=== PATIENT | male | born 1955 | race Hispanic/Latino ===

== ENCOUNTER 2021-03-31 09:07 | Day surgery (SDC) | payer BC ==
[2021-03-31] MEDS ORDERED: MIDAZOLAM HCL 2 MG/2 ML INJ ONE (10:10)
[2021-03-31] MEDS ORDERED: NALOXONE 0.4 MG/ML VIAL ONE (10:10)
[2021-03-31] MEDS ORDERED: FENTANYL CITR 100 MCG/2 ML ONE (10:11)
[2021-03-31] MEDS ORDERED: NA CHLORIDE 0.9% 500 ML ONE (10:11)
[2021-03-31] MEDS ORDERED: HYDROCODONE/APAP 7.5/325 MG TAB ONE (13:16)
[2021-03-31 13:43] VITALS: BMI 30.5
--- NOTE | 2021-03-31 14:01 | RAD REPORT ---
EXAM DESCRIPTION: US - Liver Biopsy Procedure - 03/31/2021 10:47 am CLINICAL HISTORY: MASSLiver mass, right lobe COMPARISON: No prior imaging at this facility. Incomplete set of outside CT images dated March 17, 2021. TECHNIQUE: Patient presents for imaging guided biopsy of a large 12 centimeter heterogeneous mass in the right lobe of the liver seen on the outside imaging study. The procedure, risks and alternatives to the procedure were discussed with the patient in detail. Aft er answering all questions both oral and written consent were obtained. The patient had no contraindi cated allergy. Patient had been off aspirin therapy for 10 or more days. IV access and physiologic monitors were in place. After obtaining consent, the patient was pre-medica maria e 1.0 milligrams Versed IV and 100 micrograms fentanyl IV. An additional 50 microgram fentanyl dose was utilized at the conclusion the procedure due to patient pain. Prior to the procedure plan enter a sonographic evaluation was performed. A heterogeneous mass is see n. At sonography the mass appeared to be numerous small rounded masses clustered in the right lobe. I nferior right lobe access site was selected so that normal liver parenchyma was present between the l iver capsule and the clustered liver lesions. Skin was prepped and draped in the usual sterile fashion. Skin and deeper tissues down to the liver c apsule were anesthetized with 1% lidocaine. Under direct sonographic visualization an 18 gauge introd ucer needle was advanced with the tip penetrating the liver capsule and placed in proximity to the cl ustered liver lesions. A 19 centimeter biopsy needle was advanced through the introducer needle. A 2 centimeter core biopsy was obtained. There are were 3 additional core biopsies obtained through the s marina introducer needle using changes in angulation of the needle to sample slightly different areas of the inferior right lobe liver. All biopsy material was retained and given to pathology for histologi c and/or cytologic assessment. . When the biopsy sampling was completed, the introducer needle was wi thdrawn. Direct pressure was applied to the puncture site. Hemostasis was obtained at the skin surfac e. Follow-up sonographic evaluation showed no subcapsular or pericapsular hematoma. No evidence for b leeding at the liver capsule. Patient was placed in [id number] position after a sterile bandage was placed to the puncture site. Vital signs were stable throughout the procedure. Patient tolerated procedure without immediate compl ication. Conscious sedation time was 40 minutes. IMPRESSION: Ultrasound-guided liver biopsy was performed of the large 12 centimeter mass. All obtain ed material was given to pathology for further assessment. Patient tolerated procedure well without complications. Patient was transferred to the same day surgi janell area for post procedure monitoring.
[2021-03-31 14:30] VITALS: BP 117/78; TEMP 97.7; O2SAT 97
== END 2021-03-31 14:15 | disposition home or self-care (01) ==
LOC: DS 09:07
PROVIDERS: ATTEND Internal Medicine Hematology & Oncology
PROC: BF45ZZZ Ultrasonography of Liver (ICD-10-PCS; principal; 2021-03-31)
PROC: 0FB13ZX Excision of Right Lobe Liver, Percutaneous Approach, Diagnostic (ICD-10-PCS; 2021-03-31)
DX: C22.9 Malignant neoplasm of liver, not specified as primary or secondary (principal)
CPT/HCPCS: 47000; 88307; J2250; J2310; J3010; J7040

== ENCOUNTER 2021-05-06 21:10 | Inpatient (IN) | payer BC ==
--- OUTSIDE RECORDS SUMMARY | 2021-05-06 21:16 | XMS REPORT | Continuity of Care Document ---
:1955 Author Organization [facility] t Address [address] [place] [address] Support Name Relationship Address Phone Nahid Allen Spouse [address] [place] [address] L Bianca Relative [address] [place] [id number] NAHID ALLEN X [address] Unavailable [place] [phone] ALLEN L Relative [address] Unavailable [place] [id number] Care Team Providers Name Role Phone Brian Barahona MD Primary Care Physician TK Attending Clinician Unavailable Shameka SIMS Attending Clinician Unavailable Levi LESTER S Attending Clinician Brian Barahona MD Attending Clinician Vaccine, Db Cbc Fam Attending Clinician Unavailable Chu LESTER Attending Clinician CHU Attending Clinician Unavailable Doctor Unassigned, Name Attending Clinician Unavailable Sammi Amador DO Attending Clinician Tk LESTER Attending Clinician BRIAN BARAHONA Attending Clinician Unavailable MAHESH Attending Clinician Unavailable MAHESH Attending Clinician Unavailable Lawrence VARGAS Attending Clinician Unavailable Payers Payer Name Policy Type Policy Number Effective Date Expiration Date S avni [facility] [id number] 2009 00:00:00 Problems Condition Condition Condition Status Onset Resolution Last Treating Co mments Source Name Details Category Date Date Treatment Clinician Date Acute on Acute on Disease Active 2019-06 Unive rs chronic chronic 0-11 [place] CHF 00 Medical (congestiv (congestiv Br anch e heart e heart failure), failure), NYHA class NYHA class 3 3 Obesity Obesity Disease Active 2019-06 Univers (BMI (BMI 0-10 ity of 30-39.9) 30-39.9) 00:00: [place] [facility] Fluid Fluid Disease Active 2019-06 Univers overload overload 0-09 ity of 00:00: [place] [facility] ANN-MARIE ANN-MARIE Disease Active Univers (obstructi (obstructi 4-15 it y of ve sleep ve sleep 00:00: [place] apnea) apnea) [facility] HLD HLD Disease Active Univers (hyperlipi (hyperlipi 5-09 it y of demia) demia) 00:00: [place] [facility] Branch Ischemic Ischemic Disease Active Unive rs cardiomyop cardiomyop 3-07 it y of athy athy 00:00: [place] [facility] Essential Essential Disease Active 2014-06 Uni vers hypertensi hypertensi 0-27 it y of on on 00:00: [place] [facility] Allergies, Adverse Reactions, Alerts Allergy Allergy Status Severity Reaction(s) Onset Inactive Treating Comm ents Source Name Type Date Date Clinician NO KNOWN Drug Active Univers ALLERGIE Class ity of S [facility] Social History Social Habit Start Date Stop Date Quantity Comments Source History of tobacco Cigarette Smoker University of use [facility] Exposure to Not sure [facility] SARS-CoV-2 (event) [facility] Alcohol intake 2021-05-06 2021-05-06 0 /d University of 00:00:00 00:00:00 [facility] Tobacco Comment 2020-03-19 2020-03-19 1pk a day. Universit y of 00:00:00 00:00:00 [facility] Cigarettes smoked 2015-04-05 2015-04-05 Univers ity of current (pack per 00:00:00 00:00:00 ) - Reported Branch Cigarette 2015-04-05 2015-04-05 University of pack-years 00:00:00 00:00:00 [facility] Tobacco use and 2015-04-05 2015-04-05 Never used Universit y of exposure 00:00:00 00:00:00 [facility] Sex [birth year] Universit y of 00:00:00 00:00:00 [facility] Smoking Status Start Date Stop Date Source Current every day smoker 2015-04-05 00:00:[address] [facility] Medications Ordered Filled Start Stop Current Ordering Indication Dosage Frequency Signature Comments Components Source Medication Medication Date Date Medication? Clinician (SIG) Name Name ondansetron 2020-06 No 4mg 4 mg, Slow Univers (ZOFRAN 07-06 IV Push, ity of (PF)) 10:30: 09:26 ONCE, 1 [place] injection 4 00 :00 dose, On Medi janell mg Sat Branch 05/06/21 at 0430, MARIE morpHINE 2020-06 No 4mg 4 mg, Slow Un monse injection 4 07-06 IV Push, ity of mg 10:30: 09:27 ONCE, 1 [place] 00 :00 dose, On Medical [facility] Branch 05/06/21 at 0430, STAT ciprofloxac 2020-06 Yes 500mg 500 mg, Un monse in HCl 07-06 Oral, ity of (CIPRO) 10:00: Q12HA2, [place] tablet 500 00 First dose Med ical mg on [facility] Branch 05/06/21 at 0400, Until Discontinu ed, MARIE
Re ason for Anti-Infec tive: Empiric Therapy for Suspected Infection< br>Empiric Therapy Site: Abdominal& lt;br>Dura tion of therapy: 72 hours NaCl 0.9% 2020-06 No 500mL at 999 Univ ers (NS) bolus 07-06 mL/hr, 500 it y of infusion 07:30: 08:59 mL, IV [place] 500 mL 00 :00 Infusion, Medical ONCE, 1 Branch dose, On 05/06/21 at 0130, STAT ondansetron 2020-06 No 4mg 4 mg, Slow Univers (ZOFRAN 07-06 IV Push, ity of (PF)) 07:30: 06:38 ONCE, 1 [place] injection 4 00 :00 dose, On Medi janell mg Sat Branch 05/06/21 at 0130, MARIE morpHINE 2020-06 No 4mg 4 mg, Slow Un monse injection 4 07-06 IV Push, ity of mg 07:30: 06:38 ONCE, 1 [place] 00 :00 dose, On Medical Sat Branch 05/06/21 at 0130, STAT iohexol 2020-06- No [id number] 120mL 120 mL, Univers (OMNIPAQUE 07-06 Intravenou it y of 350 07:15: 07:06 s, ONCE, 1 [place] BULK-100 00 :00 dose, On Medical mL) Sat Branch injection 05/06/21 120 mL at 0115, Routine ciprofloxac 2020-06 Yes [id number] 500mg Take 1 Univers in HCl 500 07-06 tablet by ity of mg tablet 00:00: mouth 2 [place] 00 (two) Medical times Branch daily. ondansetron 2020-06 Yes [id number] 4mg Take 1 Univers (ZOFRAN) 4 07-06 tablet by ity of mg tablet 00:00: mouth [place] 00 every 8 Medical (eight) Branch hours as needed for Nausea and Vomiting (N/V). iopamidol 2020-06- No [id number] 120mL 120 mL, Univers (ISOVUE 0-13 10-13 Intravenou ity o f 300-500 mL) 04:30: 04:30 s, ONCE, 1 [place] injection 00 :00 dose, On Medica l 120 mL [facility] 03/21/21 at 2330, Routine acetaminoph 2020-06 No 650mg 650 mg, U nivers en 0-13 10-13 Oral, ity of (TYLENOL) 03:15: 02:40 ONCE, 1 [place] tablet 650 00 :00 dose, On Medic al mg [facility] 03/21/21 at 2215, MARIE FENTanyl PF 2020-06 No 50ug 50 mcg, Un monse (SUBLIMAZE 0-13 10-13 Slow IV ity o f (PF)) 03:15: 02:40 Push, [place] injection 00 :00 ONCE, 1 Medical 50 mcg dose, On Branch [facility] 03/21/21 at 2215, Routine NaCl 0.9% 2020-06- No 1000mL at 999 Uni vers (NS) bolus 0-13 10-13 mL/hr, ity of infusion 03:15: 04:37 1,000 mL, [place] as 1,000 mL 00 :00 IV Medical Infusion, Branch ONCE, 1 dose, On Tu03/21/21 at 2215, MARIE Regadenoson 2020-06- No [id number] .4mg 0.4 mg, IV Univers (LEXISCAN) 006 Push, ity of injection 15:00: 14:55 ONCE, 1 [place] 0.4 mg 00 :00 dose, On 03/15/21 at 1000, Routine
adjunct psychology faculty member approving Restricted medication : DAVID PHILLIPS tc 2020-06 No [id number] 43.2mCi 43.2 Unive rs 99m-tetrofo 003-15 millicurie i ty of smin 15:00: 14:55 , [place] (MYOVIEW) 00 :00 Intravenou Medi janell injection s, ONCE, 1 Bran ch 43.2 dose, On [facility] 03/15/21 at 1000, Routine tc 2020-06- No [id number] 15.2mCi 15.2 Unive rs 99m-tetrofo 003-15 millicurie i ty of smin 13:30: 13:19 , [place] (MYOVIEW) 00 :00 Intravenou Medi janell injection s, ONCE, 1 Bran ch 15.2 dose, On [facility] 03/15/21 at 0830, Routine aspirin 2020-06- No 324mg 324 mg, Unive rs chewable 003-11 Oral, ity of tablet 324 15:00: 14:06 ONCE, 1 [place] mg 00 :00 dose, On Medical Sat Branch 03/11/21 at 1000, Routine ketorolac 2020-06- No 30mg 30 mg, Unive rs (TORADOL) 003-11 Slow IV ity of injection 15:00: 14:06 Push, [place] 30 mg 00 :00 ONCE, 1 Medical dose, On Branch 03/11/21 at 1000, MARIE
Fa culty member approving Restricted medication : KAELA AMADOR acetaminoph Yes 4647 1{tbl} Take 1 Un monse en-codeine 9-29 tablet by ity of 300-30 mg 00:00: mouth [place] tablet 00 every 4 Medical (four) Branch hours as needed for Pain (scale 4-6). Indication s: acute pain acetaminoph 2021-0 Yes 4647 1{tbl} Take 1 Un monse en-codeine 9-29 tablet by ity of 300-30 mg 00:00: mouth [place] tablet 00 every 4 Medical (four) Branch hours as needed for Pain (scale 4-6). Indication s: acute pain acetaminoph 2021-0 Yes 4647 1{tbl} Take 1 Un monse en-codeine 9-29 tablet by ity of 300-30 mg 00:00: mouth [place] tablet 00 every 4 Medical (four) Branch hours as needed for Pain (scale 4-6). Indication s: acute pain acetaminoph 2021-0 Yes 4647 1{tbl} Take 1 Un monse en-codeine 9-29 tablet by ity of 300-30 mg 00:00: mouth [place] tablet 00 every 4 Medical (four) Branch hours as needed for Pain (scale 4-6). Indication s: acute pain acetaminoph 2021-0 Yes 4647 1{tbl} Take 1 Un monse en-codeine 9-29 tablet by ity of 300-30 mg 00:00: mouth [place] tablet 00 every 4 Medical (four) Branch hours as needed for Pain (scale 4-6). Indication s: acute pain acetaminoph 2021-0 Yes 4647 1{tbl} Take 1 Un monse en-codeine 9-29 tablet by ity of 300-30 mg 00:00: mouth [place] tablet 00 every 4 Medical (four) Branch hours as needed for Pain (scale 4-6). Indication s: acute pain acetaminoph 2021-0 Yes 4647 1{tbl} Take 1 Un monse en-codeine 9-29 tablet by ity of 300-30 mg 00:00: mouth [place] tablet 00 every 4 Medical (four) Branch hours as needed for Pain (scale 4-6). Indication s: acute pain acetaminoph 2021-0 Yes 4647 1{tbl} Take 1 Un monse en-codeine 9-29 tablet by ity of 300-30 mg 00:00: mouth [place] tablet 00 every 4 Medical (four) Branch hours as needed for Pain (scale 4-6). Indication s: acute pain acetaminoph 2021-0 Yes 4647 1{tbl} Take 1 Un monse en-codeine 9-29 tablet by ity of 300-30 mg 00:00: mouth [place] tablet 00 every 4 Medical (four) Branch hours as needed for Pain (scale 4-6). Indication s: acute pain acetaminoph 2021-0 Yes 4647 1{tbl} Take 1 Un monse en-codeine 9-29 tablet by ity of 300-30 mg 00:00: mouth [place] tablet 00 every 4 Medical (four) Branch hours as needed for Pain (scale 4-6). Indication s: acute pain acetaminoph 2021-0 Yes 4647 1{tbl} Take 1 Un monse en-codeine 9-29 tablet by ity of 300-30 mg 00:00: mouth [place] tablet 00 every 4 Medical (four) Branch hours as needed for Pain (scale 4-6). Indication s: acute pain acetaminoph 2021-0 Yes 4647 1{tbl} Take 1 Un monse en-codeine 9-29 tablet by ity of 300-30 mg 00:00: mouth [place] tablet 00 every 4 Medical (four) Branch hours as needed for Pain (scale 4-6). Indication s: acute pain acetaminoph 2021-0 Yes 4647 1{tbl} Take 1 Un monse en-codeine 9-29 tablet by ity of 300-30 mg 00:00: mouth [place] tablet 00 every 4 Medical (four) Branch hours as needed for Pain (scale 4-6). Indication s: acute pain acetaminoph 2021-0 Yes 4647 1{tbl} Take 1 Un monse en-codeine 9-29 tablet by ity of 300-30 mg 00:00: mouth [place] tablet 00 every 4 Medical (four) Branch hours as needed for Pain (scale 4-6). Indication s: acute pain acetaminoph 2021-0 Yes 4647 1{tbl} Take 1 Un monse en-codeine 9-29 tablet by ity of 300-30 mg 00:00: mouth [place] tablet 00 every 4 Medical (four) Branch hours as needed for Pain (scale 4-6). Indication s: acute pain acetaminoph 2021-0 Yes 4647 1{tbl} Take 1 Un monse en-codeine 9-29 tablet by ity of 300-30 mg 00:00: mouth [place] tablet 00 every 4 Medical (four) Branch hours as needed for Pain (scale 4-6). Indication s: acute pain acetaminoph 2020-0 Yes 4647 1{tbl} Take 1 Un monse en-codeine 9-29 tablet by ity of 300-30 mg 00:00: mouth [place] tablet 00 every 4 Medical (four) Branch hours as needed for Pain (scale 4-6). Indication s: acute pain acetaminoph 2020-0 Yes 4647 1{tbl} Take 1 Un monse en-codeine 9-29 tablet by ity of 300-30 mg 00:00: mouth [place] tablet 00 every 4 Medical (four) Branch hours as needed for Pain (scale 4-6). Indication s: acute pain etodolac 2020-0 Yes [id number] 400mg Take 1 U nivers (LODINE) 8-31 tablet by ity of 400 mg 00:00: mouth 2 [place] tablet 00 (two) Medical times Branch daily. etodolac 0 Yes [id number] 400mg Take 1 U nivers (LODINE) 8-31 tablet by ity of 400 mg 00:00: mouth 2 [place] tablet 00 (two) Medical times Branch daily. etodolac 2020-0 Yes [id number] 400mg Take 1 U nivers (LODINE) 8-31 tablet by ity of 400 mg 00:00: mouth 2 [place] tablet 00 (two) Medical times Branch daily. etodolac 2020-0 Yes [id number] 400mg Take 1 U nivers (LODINE) 8-31 tablet by ity of 400 mg 00:00: mouth 2 [place] tablet 00 (two) Medical times Branch daily. etodolac 2020-0 Yes [id number] 400mg Take 1 U nivers (LODINE) 8-31 tablet by ity of 400 mg 00:00: mouth 2 [place] tablet 00 (two) Medical times Branch daily. etodolac 2020-0 Yes [id number] 400mg Take 1 U nivers (LODINE) 8-31 tablet by ity of 400 mg 00:00: mouth 2 [place] tablet 00 (two) Medical times Branch daily. etodolac 2020-0 Yes [id number] 400mg Take 1 U nivers (LODINE) 8-31 tablet by ity of 400 mg 00:00: mouth 2 [place] tablet 00 (two) Medical times Branch daily. etodolac 0 Yes [id number] 400mg Take 1 U nivers (LODINE) 8-31 tablet by ity of 400 mg 00:00: mouth 2 [place] tablet 00 (two) Medical times Branch daily. etodolac 0 Yes [id number] 400mg Take 1 U nivers (LODINE) 8-31 tablet by ity of 400 mg 00:00: mouth 2 [place] tablet 00 (two) Medical times Branch daily. etodolac Yes [id number] 400mg Take 1 U nivers (LODINE) 8-31 tablet by ity of 400 mg 00:00: mouth 2 [place] tablet 00 (two) Medical times Branch daily. etodolac Yes [id number] 400mg Take 1 U nivers (LODINE) 8-31 tablet by ity of 400 mg 00:00: mouth 2 [place] tablet 00 (two) Medical times Branch daily. etodolac Yes [id number] 400mg Take 1 U nivers (LODINE) 8-31 tablet by ity of 400 mg 00:00: mouth 2 [place] tablet 00 (two) Medical times Branch daily. etodolac Yes [id number] 400mg Take 1 U nivers (LODINE) 8-31 tablet by ity of 400 mg 00:00: mouth 2 [place] tablet 00 (two) Medical times Branch daily. etodolac Yes [id number] 400mg Take 1 U nivers (LODINE) 8-31 tablet by ity of 400 mg 00:00: mouth 2 [place] tablet 00 (two) Medical times Branch daily. etodolac 0 Yes [id number] 400mg Take 1 U nivers (LODINE) 8-31 tablet by ity of 400 mg 00:00: mouth 2 [place] tablet 00 (two) Medical times Branch daily. etodolac 0 Yes [id number] 400mg Take 1 U nivers (LODINE) 8-31 tablet by ity of 400 mg 00:00: mouth 2 [place] tablet 00 (two) Medical times Branch daily. etodolac 2021-0 Yes [id number] 400mg Take 1 U nivers (LODINE) 8-31 tablet by ity of 400 mg 00:00: mouth 2 [place] tablet 00 (two) Medical times Branch daily. etodolac 0 Yes [id number] 400mg Take 1 U nivers (LODINE) 8-31 tablet by ity of 400 mg 00:00: mouth 2 [place] tablet 00 (two) Medical times Branch daily. etodolac 0 Yes [id number] 400mg Take 1 U nivers (LODINE) 8-31 tablet by ity of 400 mg 00:00: mouth 2 [place] tablet 00 (two) Medical times Branch daily. atorvastati Yes [id number] 80mg Take 1 Univers n 80 mg 8-16 tablet by ity of tablet 00:00: mouth [place] 00 daily. Medical Branch atorvastati Yes [id number] 80mg Take 1 Univers n 80 mg 8-16 tablet by ity of tablet 00:00: mouth [place] 00 daily. Medical Branch atorvastati Yes [id number] 80mg Take 1 Univers n 80 mg 8-16 tablet by ity of tablet 00:00: mouth [place] 00 daily. Medical Branch atorvastati Yes [id number] 80mg Take 1 Univers n 80 mg 8-16 tablet by ity of tablet 00:00: mouth [place] 00 daily. Medical Branch atorvastati Yes [id number] 80mg Take 1 Univers n 80 mg 8-16 tablet by ity of tablet 00:00: mouth [place] 00 daily. Medical Branch atorvastati Yes [id number] 80mg Take 1 Univers n 80 mg 8-16 tablet by ity of tablet 00:00: mouth [place] 00 daily. Medical Branch atorvastati Yes [id number] 80mg Take 1 Univers n 80 mg 8-16 tablet by ity of tablet 00:00: mouth [place] 00 daily. Medical Branch atorvastati Yes [id number] 80mg Take 1 Univers n 80 mg 8-16 tablet by ity of tablet 00:00: mouth [place] 00 daily. Medical Branch atorvastati Yes [id number] 80mg Take 1 Univers n 80 mg 8-16 tablet by ity of tablet 00:00: mouth [place] 00 daily. Medical Branch atorvastati 2020-0 Yes [id number] 80mg Take 1 Univers n 80 mg 8-16 tablet by ity of tablet 00:00: mouth [place] 00 daily. Medical Branch atorvastati 0 Yes [id number] 80mg Take 1 Univers n 80 mg 8-16 tablet by ity of tablet 00:00: mouth [place] 00 daily. Medical Branch atorvastati 0 Yes [id number] 80mg Take 1 Univers n 80 mg 8-16 tablet by ity of tablet 00:00: mouth [place] 00 daily. Medical Branch atorvastati 0 Yes [id number] 80mg Take 1 Univers n 80 mg 8-16 tablet by ity of tablet 00:00: mouth [place] 00 daily. Medical Branch atorvastati Yes [id number] 80mg Take 1 Univers n 80 mg 8-16 tablet by ity of tablet 00:00: mouth [place] 00 daily. Medical Branch atorvastati 0 Yes [id number] 80mg Take 1 Univers n 80 mg 8-16 tablet by ity of tablet 00:00: mouth [place] 00 daily. Medical Branch atorvastati Yes [id number] 80mg Take 1 Univers n 80 mg 8-16 tablet by ity of tablet 00:00: mouth [place] 00 daily. Medical Branch atorvastati Yes [id number] 80mg Take 1 Univers n 80 mg 8-16 tablet by ity of tablet 00:00: mouth [place] 00 daily. Medical Branch atorvastati 0 Yes [id number] 80mg Take 1 Univers n 80 mg 8-16 tablet by ity of tablet 00:00: mouth [place] 00 daily. Medical Branch atorvastati 0 Yes [id number] 80mg Take 1 Univers n 80 mg 8-16 tablet by ity of tablet 00:00: mouth [place] 00 daily. Medical Branch nitroglycer 2020-[id number] 1 Univers in 01-10 tablet ity of (NITROSTAT) 00:00: under the [place] 0.4 mg 00 tongue Medical sublingual every 5 Branc h tablet (five) minutes as needed for Chest pain. nitroglycer [id number] 1 Univers in 01-10 tablet ity of (NITROSTAT) 00:00: under the [place] 0.4 mg 00 tongue Medical sublingual every 5 Branc h tablet (five) minutes as needed for Chest pain. nitroglycer 2021-[id number] 1 Univers in 01-10 tablet ity of (NITROSTAT) 00:00: under the [place] 0.4 mg 00 tongue Medical sublingual every 5 Branc h tablet (five) minutes as needed for Chest pain. nitroglycer 2021-[id number] 1 Univers in 01-10 tablet ity of (NITROSTAT) 00:00: under the [place] 0.4 mg 00 tongue Medical sublingual every 5 Branc h tablet (five) minutes as needed for Chest pain. nitroglycer 2021-[id number] 1 Univers in 01-10 tablet ity of (NITROSTAT) 00:00: under the [place] 0.4 mg 00 tongue Medical sublingual every 5 Branc h tablet (five) minutes as needed for Chest pain. nitroglycer 2021-[id number] 1 Univers in 01-10 tablet ity of (NITROSTAT) 00:00: under the [place] 0.4 mg 00 tongue Medical sublingual every 5 Branc h tablet (five) minutes as needed for Chest pain. nitroglycer 2021-[id number] 1 Univers in 01-10 tablet ity of (NITROSTAT) 00:00: under the [place] 0.4 mg 00 tongue Medical sublingual every 5 Branc h tablet (five) minutes as needed for Chest pain. nitroglycer 2021-[id number] 1 Univers in 01-10 tablet ity of (NITROSTAT) 00:00: under the [place] 0.4 mg 00 tongue Medical sublingual every 5 Branc h tablet (five) minutes as needed for Chest pain. nitroglycer 2021-[id number] 1 Univers in 01-10 tablet ity of (NITROSTAT) 00:00: under the [place] 0.4 mg 00 tongue Medical sublingual every 5 Branc h tablet (five) minutes as needed for Chest pain. nitroglycer 2021-[id number] 1 Univers in 01-10 tablet ity of (NITROSTAT) 00:00: under the [place] 0.4 mg 00 tongue Medical sublingual every 5 Branc h tablet (five) minutes as needed for Chest pain. nitroglycer 2021-[id number] 1 Univers in 01-10 tablet ity of (NITROSTAT) 00:00: under the [place] 0.4 mg 00 tongue Medical sublingual every 5 Branc h tablet (five) minutes as needed for Chest pain. nitroglycer 2021-[id number] 1 Univers in 01-10 tablet ity of (NITROSTAT) 00:00: under the [place] 0.4 mg 00 tongue Medical sublingual every 5 Branc h tablet (five) minutes as needed for Chest pain. nitroglycer 2021-[id number] 1 Univers in 01-10 tablet ity of (NITROSTAT) 00:00: under the [place] 0.4 mg 00 tongue Medical sublingual every 5 Branc h tablet (five) minutes as needed for Chest pain. nitroglycer 2021-[id number] 1 Univers in 01-10 tablet ity of (NITROSTAT) 00:00: under the [place] 0.4 mg 00 tongue Medical sublingual every 5 Branc h tablet (five) minutes as needed for Chest pain. nitroglycer 2021-[id number] 1 Univers in 01-10 tablet ity of (NITROSTAT) 00:00: under the [place] 0.4 mg 00 tongue Medical sublingual every 5 Branc h tablet (five) minutes as needed for Chest pain. nitroglycer 2021-[id number] 1 Univers in 01-10 tablet ity of (NITROSTAT) 00:00: under the [place] 0.4 mg 00 tongue Medical sublingual every 5 Branc h tablet (five) minutes as needed for Chest pain. nitroglycer 2021-[id number] 1 Univers in 01-10 tablet ity of (NITROSTAT) 00:00: under the [place] 0.4 mg 00 tongue Medical sublingual every 5 Branc h tablet (five) minutes as needed for Chest pain. nitroglycer 2021-[id number] 1 Univers in 8-03 tablet ity of (NITROSTAT) 00:00: under the [place] 0.4 mg 00 tongue Medical sublingual every 5 Branc h tablet (five) minutes as needed for Chest pain. nitroglycer [id number] 1 Univers in 8-03 tablet ity of (NITROSTAT) 00:00: under the [place] 0.4 mg 00 tongue Medical sublingual every 5 Branc h tablet (five) minutes as needed for Chest pain. carvediloL 0 Yes [id number] 25mg Take 1 U nivers 25 mg 2-03 tablet by ity of tablet 00:00: mouth 2 [place] 00 (two) Medical times Branch daily with meals. hydroCHLORO 2020-0 Yes [id number] 25mg Take 1 Univers thiazide 25 2-03 tablet by ity of mg tablet 00:00: mouth [place] 00 daily. Medical Branch losartan 0 Yes [id number] 100mg Take 1 Un monse 100 mg 2-03 tablet by ity of tablet 00:00: mouth [place] 00 daily. Medical Branch carvediloL 0 Yes [id number] 25mg Take 1 U nivers 25 mg 2-03 tablet by ity of tablet 00:00: mouth 2 [place] 00 (two) Medical times Branch daily with meals. hydroCHLORO 2020-0 Yes [id number] 25mg Take 1 Univers thiazide 25 2-03 tablet by ity of mg tablet 00:00: mouth [place] 00 daily. Medical Branch losartan 0 Yes [id number] 100mg Take 1 Un monse 100 mg 2-03 tablet by ity of tablet 00:00: mouth [place] 00 daily. Medical Branch carvediloL 2020-0 Yes [id number] 25mg Take 1 U nivers 25 mg 2-03 tablet by ity of tablet 00:00: mouth 2 [place] 00 (two) Medical times Branch daily with meals. hydroCHLORO 2020-0 Yes [id number] 25mg Take 1 Univers thiazide 25 2-03 tablet by ity of mg tablet 00:00: mouth [place] 00 daily. Medical Branch losartan 2020-0 Yes [id number] 100mg Take 1 Un monse 100 mg 2-03 tablet by ity of tablet 00:00: mouth [place] 00 daily. Medical Branch carvediloL 2020-0 Yes [id number] 25mg Take 1 U nivers 25 mg 2-03 tablet by ity of tablet 00:00: mouth 2 [place] 00 (two) Medical times Branch daily with meals. hydroCHLORO 0 Yes [id number] 25mg Take 1 Univers thiazide 25 2-03 tablet by ity of mg tablet 00:00: mouth [place] 00 daily. Medical Branch losartan 0 Yes [id number] 100mg Take 1 Un monse 100 mg 2-03 tablet by ity of tablet 00:00: mouth [place] 00 daily. Medical Branch carvediloL 0 Yes [id number] 25mg Take 1 U nivers 25 mg 2-03 tablet by ity of tablet 00:00: mouth 2 [place] 00 (two) Medical times Branch daily with meals. hydroCHLORO 0 Yes [id number] 25mg Take 1 Univers thiazide 25 2-03 tablet by ity of mg tablet 00:00: mouth [place] 00 daily. Medical Branch losartan 0 Yes [id number] 100mg Take 1 Un monse 100 mg 2-03 tablet by ity of tablet 00:00: mouth [place] 00 daily. Medical Branch carvediloL Yes [id number] 25mg Take 1 U nivers 25 mg 2-03 tablet by ity of tablet 00:00: mouth 2 [place] 00 (two) Medical times Branch daily with meals. hydroCHLORO 0 Yes [id number] 25mg Take 1 Univers thiazide 25 2-03 tablet by ity of mg tablet 00:00: mouth [place] 00 daily. Medical Branch losartan 0 Yes [id number] 100mg Take 1 Un monse 100 mg 2-03 tablet by ity of tablet 00:00: mouth [place] 00 daily. Medical Branch carvediloL 0 Yes [id number] 25mg Take 1 U nivers 25 mg 2-03 tablet by ity of tablet 00:00: mouth 2 [place] 00 (two) Medical times Branch daily with meals. hydroCHLORO 2020-0 Yes [id number] 25mg Take 1 Univers thiazide 25 2-03 tablet by ity of mg tablet 00:00: mouth [place] 00 daily. Medical Branch losartan 0 Yes [id number] 100mg Take 1 Un monse 100 mg 2-03 tablet by ity of tablet 00:00: mouth [place] 00 daily. Medical Branch carvediloL 0 Yes [id number] 25mg Take 1 U nivers 25 mg 2-03 tablet by ity of tablet 00:00: mouth 2 [place] 00 (two) Medical times Branch daily with meals. hydroCHLORO 0 Yes [id number] 25mg Take 1 Univers thiazide 25 2-03 tablet by ity of mg tablet 00:00: mouth [place] 00 daily. Medical Branch losartan 0 Yes [id number] 100mg Take 1 Un monse 100 mg 2-03 tablet by ity of tablet 00:00: mouth [place] 00 daily. Medical Branch carvediloL 0 Yes [id number] 25mg Take 1 U nivers 25 mg 2-03 tablet by ity of tablet 00:00: mouth 2 [place] 00 (two) Medical times Branch daily with meals. hydroCHLORO 0 Yes [id number] 25mg Take 1 Univers thiazide 25 2-03 tablet by ity of mg tablet 00:00: mouth [place] 00 daily. Medical Branch losartan 0 Yes [id number] 100mg Take 1 Un monse 100 mg 2-03 tablet by ity of tablet 00:00: mouth [place] 00 daily. Medical Branch carvediloL Yes [id number] 25mg Take 1 U nivers 25 mg 2-03 tablet by ity of tablet 00:00: mouth 2 [place] 00 (two) Medical times Branch daily with meals. hydroCHLORO 0 Yes [id number] 25mg Take 1 Univers thiazide 25 2-03 tablet by ity of mg tablet 00:00: mouth [place] 00 daily. Medical Branch losartan 0 Yes [id number] 100mg Take 1 Un monse 100 mg 2-03 tablet by ity of tablet 00:00: mouth [place] 00 daily. Medical Branch carvediloL 0 Yes [id number] 25mg Take 1 U nivers 25 mg 2-03 tablet by ity of tablet 00:00: mouth 2 [place] 00 (two) Medical times Branch daily with meals. hydroCHLORO 2020-0 Yes [id number] 25mg Take 1 Univers thiazide 25 2-03 tablet by ity of mg tablet 00:00: mouth [place] 00 daily. Medical Branch losartan 0 Yes [id number] 100mg Take 1 Un monse 100 mg 2-03 tablet by ity of tablet 00:00: mouth [place] 00 daily. Medical Branch carvediloL 0 Yes [id number] 25mg Take 1 U nivers 25 mg 2-03 tablet by ity of tablet 00:00: mouth 2 [place] 00 (two) Medical times Branch daily with meals. hydroCHLORO 0 Yes [id number] 25mg Take 1 Univers thiazide 25 2-03 tablet by ity of mg tablet 00:00: mouth [place] 00 daily. Medical Branch losartan 0 Yes [id number] 100mg Take 1 Un monse 100 mg 2-03 tablet by ity of tablet 00:00: mouth [place] 00 daily. Medical Branch carvediloL 0 Yes [id number] 25mg Take 1 U nivers 25 mg 2-03 tablet by ity of tablet 00:00: mouth 2 [place] 00 (two) Medical times Branch daily with meals. hydroCHLORO 0 Yes [id number] 25mg Take 1 Univers thiazide 25 2-03 tablet by ity of mg tablet 00:00: mouth [place] 00 daily. Medical Branch losartan 0 Yes [id number] 100mg Take 1 Un monse 100 mg 2-03 tablet by ity of tablet 00:00: mouth [place] 00 daily. Medical Branch carvediloL Yes [id number] 25mg Take 1 U nivers 25 mg 2-03 tablet by ity of tablet 00:00: mouth 2 [place] 00 (two) Medical times Branch daily with meals. hydroCHLORO 0 Yes [id number] 25mg Take 1 Univers thiazide 25 2-03 tablet by ity of mg tablet 00:00: mouth [place] 00 daily. Medical Branch losartan 0 Yes [id number] 100mg Take 1 Un monse 100 mg 2-03 tablet by ity of tablet 00:00: mouth [place] 00 daily. Medical Branch carvediloL 0 Yes [id number] 25mg Take 1 U nivers 25 mg 2-03 tablet by ity of tablet 00:00: mouth 2 [place] 00 (two) Medical times Branch daily with meals. hydroCHLORO 2020-0 Yes [id number] 25mg Take 1 Univers thiazide 25 2-03 tablet by ity of mg tablet 00:00: mouth [place] 00 daily. Medical Branch losartan 0 Yes [id number] 100mg Take 1 Un monse 100 mg 2-03 tablet by ity of tablet 00:00: mouth [place] 00 daily. Medical Branch carvediloL 0 Yes [id number] 25mg Take 1 U nivers 25 mg 2-03 tablet by ity of tablet 00:00: mouth 2 [place] 00 (two) Medical times Branch daily with meals. hydroCHLORO Yes [id number] 25mg Take 1 Univers thiazide 25 2-03 tablet by ity of mg tablet 00:00: mouth [place] 00 daily. Medical Branch losartan Yes [id number] 100mg Take 1 Un monse 100 mg 2-03 tablet by ity of tablet 00:00: mouth [place] 00 daily. Medical Branch carvediloL Yes [id number] 25mg Take 1 U nivers 25 mg 2-03 tablet by ity of tablet 00:00: mouth 2 [place] 00 (two) Medical times Branch daily with meals. hydroCHLORO Yes [id number] 25mg Take 1 Univers thiazide 25 2-03 tablet by ity of mg tablet 00:00: mouth [place] 00 daily. Medical Branch losartan Yes [id number] 100mg Take 1 Un monse 100 mg 2-03 tablet by ity of tablet 00:00: mouth [place] 00 daily. Medical Branch carvediloL Yes [id number] 25mg Take 1 U nivers 25 mg 2-03 tablet by ity of tablet 00:00: mouth 2 [place] 00 (two) Medical times Branch daily with meals. hydroCHLORO Yes [id number] 25mg Take 1 Univers thiazide 25 2-03 tablet by ity of mg tablet 00:00: mouth [place] 00 daily. Medical Branch losartan Yes [id number] 100mg Take 1 Un monse 100 mg 2-03 tablet by ity of tablet 00:00: mouth [place] 00 daily. Medical Branch carvediloL Yes [id number] 25mg Take 1 U nivers 25 mg 2-03 tablet by ity of tablet 00:00: mouth 2 [place] 00 (two) Medical times Branch daily with meals. hydroCHLORO Yes [id number] 25mg Take 1 Univers thiazide 25 2-03 tablet by ity of mg tablet 00:00: mouth [place] 00 daily. Medical Branch losartan Yes [id number] 100mg Take 1 Un monse 100 mg 2-03 tablet by ity of tablet 00:00: mouth [place] 00 daily. Medical Branch aspirin 81 2016-0 Yes 81mg Take 1 Tab U nivers mg EC 2-08 by mouth ity of tablet 00:00: daily. [place] [facility] aspirin 81 2016-0 Yes 81mg Take 1 Tab U nivers mg EC 2-08 by mouth ity of tablet 00:00: daily. [place] [facility] aspirin 81 2016-0 Yes 81mg Take 1 Tab U nivers mg EC 2-08 by mouth ity of tablet 00:00: daily. [place] [facility] Branch aspirin 81 2016-0 Yes 81mg Take 1 Tab U nivers mg EC 2-08 by mouth ity of tablet 00:00: daily. [place] [facility] Branch aspirin 81 2016-0 Yes 81mg Take 1 Tab U nivers mg EC 2-08 by mouth ity of tablet 00:00: daily. [place] [facility] Branch aspirin 81 2016-0 Yes 81mg Take 1 Tab U nivers mg EC 2-08 by mouth ity of tablet 00:00: daily. [place] [facility] aspirin 81 2016-0 Yes 81mg Take 1 Tab U nivers mg EC 2-08 by mouth ity of tablet 00:00: daily. [place] [facility] aspirin 81 2016-0 Yes 81mg Take 1 Tab U nivers mg EC 2-08 by mouth ity of tablet 00:00: daily. [place] [facility] Branch aspirin 81 2016-0 Yes 81mg Take 1 Tab U nivers mg EC 2-08 by mouth ity of tablet 00:00: daily. [place] [facility] aspirin 81 2016-0 Yes 81mg Take 1 Tab U nivers mg EC 2-08 by mouth ity of tablet 00:00: daily. [place] [facility] aspirin 81 2016-0 Yes 81mg Take 1 Tab U nivers mg EC 2-08 by mouth ity of tablet 00:00: daily. [place] [facility] aspirin 81 2016-0 Yes 81mg Take 1 Tab U nivers mg EC 2-08 by mouth ity of tablet 00:00: daily. [place] [facility] aspirin 81 2016-0 Yes 81mg Take 1 Tab U nivers mg EC 2-08 by mouth ity of tablet 00:00: daily. [place] [facility] Branch aspirin 81 2016-0 Yes 81mg Take 1 Tab U nivers mg EC 2-08 by mouth ity of tablet 00:00: daily. [place] [facility] aspirin 81 2016-0 Yes 81mg Take 1 Tab U nivers mg EC 2-08 by mouth ity of tablet 00:00: daily. [place] [facility] aspirin 81 2016-0 Yes 81mg Take 1 Tab U nivers mg EC 2-08 by mouth ity of tablet 00:00: daily. [place] [facility] aspirin 81 2016-0 Yes 81mg Take 1 Tab U nivers mg EC 2-08 by mouth ity of tablet 00:00: daily. [address] aspirin 81 2016-0 Yes 81mg Take 1 Tab U nivers mg EC 2-08 by mouth ity of tablet 00:00: daily. [address] aspirin 81 2016-0 Yes 81mg Take 1 Tab U nivers mg EC 2-08 by mouth ity of tablet 00:00: daily. [address] Immunizations Ordered Filled Immunization Date Status Comments [facility] e Immunization Name Name SARS-COV-2 COVID-19 2021-04-21 Completed Unive rsity of MODERNA VACCINE 00:00:00 [facility] SARS-COV-2 COVID-19 2021-04-21 Completed Unive rsity of MODERNA VACCINE 00:00:00 [facility] SARS-COV-2 COVID-19 2021-04-21 Completed Unive rsity of MODERNA VACCINE 00:00:00 [facility] SARS-COV-2 COVID-19 2021-04-21 Completed Unive rsity of MODERNA VACCINE 00:00:00 [facility] SARS-COV-2 COVID-19 2020-09-12 Completed Unive rsity of MODERNA VACCINE 00:00:00 [facility] SARS-COV-2 COVID-19 2020-09-12 Completed Unive rsity of MODERNA VACCINE 00:00:00 [facility] SARS-COV-2 COVID-19 2020-09-12 Completed Unive rsity of MODERNA VACCINE 00:00:00 [facility] SARS-COV-2 COVID-19 2020-09-12 Completed Unive rsity of MODERNA VACCINE 00:00:00 [facility] SARS-COV-2 COVID-19 2020-09-12 Completed Unive rsity of MODERNA VACCINE 00:00:00 [facility] SARS-COV-2 COVID-19 2020-08-16 Completed Unive rsity of MODERNA VACCINE 00:00:00 [place] Med ical Branch SARS-COV-2 COVID-19 2020-08-16 Completed Unive rsity of MODERNA VACCINE 00:00:00 [facility] SARS-COV-2 COVID-19 2020-08-16 Completed Unive rsity of MODERNA VACCINE 00:00:00 [facility] SARS-COV-2 COVID-19 2020-08-16 Completed Unive rsity of MODERNA VACCINE 00:00:00 [facility] SARS-COV-2 COVID-19 2020-08-16 Completed Unive rsity of MODERNA VACCINE 00:00:00 [facility] Zoster Vaccine 2020-01-12 Completed University of Recombinant 00:00:00 [facility] Zoster Vaccine 2020-01-12 Completed University of Recombinant 00:00:00 [facility] Zoster Vaccine 2020-01-12 Completed University of Recombinant 00:00:00 [facility] Zoster Vaccine 2020-01-12 Completed University of Recombinant 00:00:00 [facility] Zoster Vaccine 2020-01-12 Completed University of Recombinant 00:00:00 [facility] Zoster Vaccine 2020-01-12 Completed University of Recombinant 00:00:00 [facility] Zoster Vaccine 2020-01-12 Completed University of Recombinant 00:00:00 [facility] Zoster Vaccine 2020-01-12 Completed University of Recombinant 00:00:00 [facility] Zoster Vaccine 2020-01-12 Completed University of Recombinant 00:00:00 [facility] Zoster Vaccine 2020-01-12 Completed University of Recombinant 00:00:00 [facility] Zoster Vaccine 2020-01-12 Completed University of Recombinant 00:00:00 [facility] Zoster Vaccine 2020-01-12 Completed University of Recombinant 00:00:00 [facility] Zoster Vaccine 2020-01-12 Completed University of Recombinant 00:00:00 [facility] Zoster Vaccine 2020-01-12 Completed University of Recombinant 00:00:00 [facility] Zoster Vaccine 2020-01-12 Completed University of Recombinant 00:00:00 [facility] Zoster Vaccine 2020-01-12 Completed University of Recombinant 00:00:00 [facility] Zoster Vaccine 2020-01-12 Completed University of Recombinant 00:00:00 [facility] Zoster Vaccine 2020-01-12 Completed University of Recombinant 00:00:00 [facility] Zoster Vaccine 2020-01-12 Completed University of Recombinant 00:00:00 [facility] Vital Signs Vital Name Observation Time Observation Value Comments Source Systolic blood 2021-05-06 09:30:00 128 mm[Hg] Univer sity of pressure [place] [facility] Diastolic blood 2021-05-06 09:30:00 96 mm[Hg] Unive rsity of pressure [place] [facility] Heart rate 2021-05-06 09:30:00 62 /min Universi ty of [place] [facility] Respiratory rate 2021-05-06 09:30:00 15 /min Univ ersity of [place] [facility] Oxygen saturation in 2021-05-06 08:00:00 94 /min University of Arterial blood by [place] [employer] janell Pulse oximetry Branch Body temperature 2021-05-06 06:04:00 36.17 Shivani Univ ersity of [place] [facility] Body height 2021-05-06 06:04:00 162.6 cm Universi ty [facility] [place] [facility] Body weight 2021-05-06 06:04:00 72.576 kg [facility]i [facility] [place] [facility] BMI 2021-05-06 06:04:00 27.46 kg/m2 [facility]i [facility] [place] [facility] Systolic blood 2021-03-22 04:30:00 147 mm[Hg] Univer sity of pressure [place] [facility] Diastolic blood 2021-03-22 04:30:00 77 mm[Hg] Unive rsity of pressure [place] [facility] Heart rate 2021-03-22 04:30:00 101 /min Universi ty [facility] [place] [facility] Respiratory rate 2021-03-22 04:30:00 20 /min Univ ersity of [place] [facility] Oxygen saturation in 2021-03-22 04:30:00 95 /min University of Arterial blood by [place] [employer] janell Pulse oximetry Branch Body temperature 2021-03-22 04:00:00 37.17 Shivani Univ ersity of [place] [facility] Body weight 2021-03-22 01:57:00 79.243 kg [facility]i ty [facility] [place] [facility] BMI 2021-03-22 01:57:00 29.99 kg/m2 [facility] [place] [facility] Systolic blood 2021-03-11 17:00:00 160 mm[Hg] Univer sity of pressure [place] [facility] Diastolic blood 2021-03-11 17:00:00 93 mm[Hg] Unive rsity of pressure [place] [facility] Heart rate 2021-03-11 17:00:00 79 /min [facility] Respiratory rate 2021-03-11 17:00:00 16 /[facility] O[facility] saturation in 2021-03-11 17:00:00 97 /min [facility] Arterial blood by [facility] [place] [facility] Pulse oximetry Branch Body temperature 2021-03-11 13:51:00 37.22 Shivani [facility] Body weight 2021-03-11 13:51:00 80.74 kg [facility] BMI 2021-03-11 13:51:00 30.55 kg/m2 [facility] Systolic blood 2021-03-10 15:59:00 155 mm[Hg] Univer sity [facility] Diastolic blood 2021-03-10 15:59:00 87 mm[Hg] [facility] Heart rate 2021-03-10 15:54:00 90 /min [facility] Body weight 2021-03-10 15:54:00 80.74 kg [facility] BMI 2021-03-10 15:54:00 30.55 kg/m2 [facility] Procedures Procedure Date / Time Performing Clinician Source Performed CT ABDOMEN PELVIS W 2021-05-06 07:11:03 Robert Sims [facility] CONTRAST [facility] LIPASE 2021-05-06 06:42:00 Robert Sims [facility] COMP. METABOLIC PANEL 2021-05-06 06:42:00 Robert Sims [facility] ([id number]) [facility] CBC WITH DIFF 2021-05-06 06:42:00 Robert Sims [facility] URINALYSIS 2021-05-06 06:42:00 Robert Sims [facility] NOTICE OF PRIVACY 2021-05-06 05:58:33 Doctor Unassigned, No [facility] PRACTICES Name [facility] CONSENT/REFUSAL FOR 2021-05-06 05:58:02 Doctor Unassigned, No Un iversity [facility] DIAGNOSIS AND TREATMENT Name [facility] SARS-COV-2 COVID-19 2021-04-21 15:54:04 Doctor [facility]assigned, No [facility],0.[facility],IM Name Medical Branch (MODERNA) AUTHORIZATION FOR 2021-04-14 05:01:00 Doctor Unassigned, No [facility] RELEASE OF PHI Name Medical Branch URINALYSIS 2021-03-22 04:37:00 Kaela Amador [facility] Medical Branch CT ABDOMEN PELVIS W 2021-03-22 03:21:23 Kaela Amador [facility] CT CHEST PULMONARY 2021-03-22 03:21:23 Kaela Amador [facility] ANGIOGRAM Medical Branch COVID-19 (ID NOW RAPID 2021-03-22 02:23:00 [facility] Branch TROPONIN I 2021-03-22 02:21:00 Kaela Amador [facility] Medical Branch HEPATIC FUNCTION PANEL 2021-03-22 02:21:00 [facility] ([id number] (ALB,T.PRO,BILI Medical Branch T,BU/BC,ALT,AST,ALK PHOS) BASIC METABOLIC PANEL 2021-03-22 02:21:00 Kaela Amador [facility] (NA, K, CL, CO2, Medical Branch GLUCOSE, BUN, CREATININE, CA) CBC WITH DIFF 2021-03-22 02:21:00 Kaela Amador [facility] Medical [place] LACTIC ACID WHOLE BLOOD 2021-03-22 02:20:00 [facility] OF PRIVACY 2021-03-22 01:52:49 Doctor Unassigned, No [facility] PRACTICES Name Medical Branch CONSENT/REFUSAL FOR 2021-03-22 01:51:07 Doctor Unassigned, No [facility] AND TREATMENT Name Medical Branch REFERRAL- 2021-03-16 05:01:00 Doctor Unassigned, No [facility] REQUEST/RESPONSE Name Medical Branch NM MYOCARDIUM PERFUSION 2021-03-15 15:40:00 Tk [facility] STRESS AND REST Medical Branch NUCLEAR STRESS TEST 2021-03-15 15:40:00 [facility] CARDIOLOGY (DO NOT Medical Branc h SCHED) NUCLEAR STRESS TEST 2021-03-15 15:40:00 Tk, [facility] CARDIOLOGY (DO NOT Medical Branc h SCHED) NM MYOCARDIUM PERFUSION 2021-03-15 15:40:00 [facility], [facility] STRESS AND REST Medical Branch NM MYOCARDIUM PERFUSION 2021-03-15 15:40:00 [facility], [facility] STRESS AND REST Medical Branch NUCLEAR STRESS TEST 2021-03-15 15:40:00 [facility], [facility] CARDIOLOGY (DO NOT Medical Branc h SCHED) NM MYOCARDIUM PERFUSION 2021-03-15 15:40:00 [facility], [facility] STRESS AND REST Medical Branch NUCLEAR STRESS TEST 2021-03-15 15:40:00 [facility], [facility] CARDIOLOGY (DO NOT Medical Branc h SCHED) TROPONIN I 2021-03-11 15:32:00 Kaela Amador [facility] XR CHEST 1 VW 2021-03-11 14:12:57 Kaela Amador [facility] TROPONIN I 2021-03-11 14:01:00 Kaela Amador [facility] COMP. METABOLIC PANEL 2021-03-11 14:01:00 Kaela Amador [facility] ([id number]) [facility] CBC WITH DIFF 2021-03-11 14:01:00 Kaela Amador [facility] N-TERMINAL PRO-BNP 2021-03-11 14:01:[address] [facility] COVID-19 (ID NOW RAPID 2021-03-11 14:01:00 Kaela Amador [facility] TESTING) [facility] CONSENT/REFUSAL FOR 2021-03-11 13:48:12 Doctor Unassigned, No [facility] AND TREATMENT Name [facility] PATIENT QUESTIONNAIRE 2021-03-02 05:01:00 Doctor Unassigned, No [facility] Name [facility] Plan of Care Planned Activity Planned Date Details Comments Source Encounters Start End Encounter Admission Attending Care Care Encounter Source Date/Time Date/Time Type Type Clinicians Facility Department ID 2021-04-11 Emergency [facility] [id number] Univers 06:18:[address] [facility] 2021-04-11 Emergency [facility] [id number] Univers 03:17:[address] [facility] 2021-04-11 Emergency [facility] [id number] Univers 02:25:[address] [facility] 2021-04-07 Emergency [facility] [id number] Univers 22:11:[address] [facility] 2021-07-21 2021-07-21 Outpatient R TK, [facility] [id number] Univers 09:40:00 09:40:00 MARLI [id number] ity o f [facility] 2021-05-05 2021-05-06 Emergency [facility] [id number] Univers 23:59:00 04:35:00 POOJAFRANCIE ity [facility] 2021-05-05 2021-05-06 Emergency [facility] [id number] Univers 23:59:00 04:35:00 Robert Myles [place] [id number] ity of [place] [id number] [place] [facility] [id number] [address] 2021-05-02 2021-05-02 Telephone [facility] [id number] Univers 00:00:00 00:00:00 [facility] [id number] it y of [place] [facility] [id number] Rubén as CM?BLEA [phone] [address] MEDICAL OFFICE [facility] 2021-05-01 2021-05-01 Telephone [facility] [id number] Univers 00:00:00 00:00:00 [facility] [id number] it y of [place] [facility] [id number] Rubén as CM?BLEA [id number] [address] OFFICE [facility] 2021-04-21 2021-04-21 Imm/Inj Vaccine, Ang Db Cbc [facility] 1. [id number] Univers 09:25:25 09:35:25 Visit Marli Rosa [facility] [id number] ity of [place] [id number] Rubén as CM?BLEA [phone] [address] OFFICE [facility] 2021-04-21 2021-04-21 Outpatient R [facility] [id number] Univers 09:20:00 09:20:00 [id number] ity [facility] 2021-04-21 2021-04-21 [facility] [id number] Univers 09:20:00 09:20:00 MARLI ity [facility] 2021-04-18 2021-04-18 Telephone [facility] [id number] Univers 00:00:00 00:00:00 [facility] [id number] it y of [place] [id number] Rubén as CM?BLEA [phone] [address] 2021-04-14 2021-04-14 Telephone [facility] [id number] Univers 00:00:00 00:00:00 [facility] [id number] it y of [place] [id number] Rubén as CM?BLEA [phone] [address] 2021-04-14 2021-04-14 Orders Doctor DIONI [id number] Univers 00:00:00 00:00:00 Only Unassigned, MYRNA [id number] ity of [place] [facility] [id number] Rubén as [phone] [address] 2021-04-13 2021-04-13 Telephone [facility] [id number] Univers 00:00:00 00:00:00 [facility] [id number] it y of [place] [id number] Rubén as CM?BLEA [phone] [address] OFFICE [facility] 2021-03-24 2021-03-24 Telephone [facility] [id number] Univers 00:00:00 00:00:00 [facility] [id number] it y of Brian [place] [id number] Rubén as Cm?Blea [id number] Mi dical kney [address] [facility] 2021-03-21 2021-03-22 Emergency [facility] [id number] Univers 21:04:00 00:31:00 Kaela Ocampo [id number] [id number] [place] [phone] [facility] [address] 2021-03-22 2021-03-22 Telephone [facility] [id number] Univers 00:00:00 00:00:00 Marli Ocampo [id number] [id number] [place] [phone] Mi dical nal 059 [facility] 2021-03-16 2021-03-16 Orders Doctor DIONI [id number] Univers 00:00:00 00:00:00 Only Unassigned, MYRNA [id number] ity of [place] [facility] [id number] Rubén as [phone] [facility] [address] [place] 2021-03-15 2021-03-15 [facility] [id number] Univers 07:58:08 23:59:00 Encounter Marli Ocampo [id number] [place] [id number] [place] [phone] [facility] 805 Branch 2021-03-15 2021-03-15 Outpatient [facility] [id number] Univers 08:00:00 08:00:00 MARLI [id number] ity o f [facility] 2021-03-15 2021-03-15 [facility] [id number] Univers 07:57:44 07:57:44 Encounter Marli Ocampo [id number] ity of [place] [id number] [facility] [phone] [facility] 805 Branch 2021-03-15 2021-03-15 [facility] [id number] Univers 07:57:17 07:57:17 Encounter Marli Ocampo [id number] ity of [place] [id number] [facility] [phone] [facility] [address] 2021-03-15 2021-03-15 [facility] [id number] Univers 07:55:23 07:56:00 Encounter Marli Ocampo [id number] ity of [place] [id number] [facility] [id number] [address] 2021-03-15 2021-03-15 Outpatient [facility] [id number] Univers 00:00:00 00:00:00 MARLI mullen o f [facility] 2021-03-11 2021-03-11 Emergency [facility] [id number] Univers 08:48:00 12:29:00 Kaela Ocampo [id number] ity of [place] 4.2.7.2.686 [facility] [phone] [address] 2021-03-10 2021-03-10 Outpatient Junie BARAHONA [facility] [id number] Univers 17:30:00 17:30:00 PAUL Harding001 ity of [facility] 2021-03-10 2021-03-10 [facility] [id number] Univers 10:50:01 11:15:43 Visit Paul Rojas 350.1.13.10 it y of Brian Ocampo 4.2.7.2.686 Rubén as Cm?Blea [phone] Mi opal [address] Medical Office Building 2021-03-10 2021-03-10 [facility] [id number] Univers 11:00:00 11:00:00 PAUL mullen [facility] 2021-03-07 2021-03-07 Outpatient R JUN, [facility] [id number] Univers 08:00:00 08:00:00 PAUL [id number] ity [facility] 2021-03-07 2021-03-07 Outpatient R JUN [facility] [id number] Univers 08:00:00 08:00:00 PAUL ity [facility] 2021-03-02 2021-03-02 Outpatient R [facility] [id number] -[id number] Univers 08:30:00 08:30:00 [id number] ity [facility] 2021-03-02 2021-03-02 Outpatient R [facility] [id number] Univers 08:30:00 08:30:00 ity [facility] 2021-03-02 2021-03-02 Orders Doctor DIONI [id number] Univers 00:00:00 00:00:00 Only Unassigned, MYRNA 350.1.13.10 [facility] 4.2.7.2.686 Rubén as [phone] [address] 2021-02-27 2021-02-27 Outpatient R TK [facility] [id number] -[id number] Univers 08:40:00 08:40:00 MARLI [id number] ity o [facility] 2021-02-27 2021-02-27 Outpatient R TK [facility] [id number] Univers 08:40:00 08:40:00 MARLI ity o f [facility] 2021-02-07 2021-02-07 Outpatient JUN [facility] [id number] Univers 10:00:00 10:00:00 PAUL [id number] ity [facility] 2021-02-07 2021-02-07 [facility] [id number] Univers 10:00:00 10:00:00 PAUL ity [facility] 2021-01-31 2021-01-31 Outpatient R SUMITADILSON [facility] [id number] Univers 10:45:00 10:45:00 PAUL [id number] ity [facility] 2021-01-31 2021-01-31 Outpatient R JUN, [facility] [id number] Univers 10:45:00 10:45:00 PAUL [facility] 2021-01-10 2021-01-10 Outpatient R TK, [facility] [id number] Univers 10:40:00 10:40:00 BILLNAZARIO [id number] ity o [facility] 2021-01-10 2021-01-10 Outpatient R TK, [facility] [id number] Univers 10:40:00 10:40:00 MARLI miquel o [facility] 2020-12-16 2020-12-16 Outpatient R JUN, [facility] [id number]-20 Univers 16:15:00 16:15:00 PAUL [id number] [facility] 2020-12-16 2020-12-16 Outpatient R JUN, [facility] [id number] Univers 16:15:00 16:15:00 PAUL [facility] 2020-09-26 2020-09-26 Outpatient R TK, [facility] [id number] -[id number] Univers 09:20:00 09:20:00 BILLALICJAHEAVENLY [id number] ity o [facility] 2020-07-13 2020-07-13 Outpatient R TK, [facility] [id number] -[id number] Univers 11:20:00 11:20:00 MARLI [id number] ity o [facility] 2020-07-13 2020-07-13 Outpatient R TK, [facility] [id number] Univers 11:20:00 11:20:00 MARLI ity o [facility] 2020-07-08 2020-07-08 Outpatient R NICHELLE ARAGON [facility] [id number] Univers 09:00:00 09:00:00 NICHELLE ARAGON i ty of [facility] 2020-07-08 2020-07-08 Outpatient R NICHELLE ARAGON [facility] [id number] Univers 09:00:00 09:00:00 NICHELLE ARAGON [id number] i ty of [facility] 2020-05-19 2020-05-19 Outpatient R [facility] [id number] -[id number] Univers 08:00:00 08:00:00 ity [facility] 2020-05-19 2020-05-19 Outpatient R ALICIA, [facility] [id number] Univers 08:00:00 08:00:[address] [facility] 2020-05-16 2020-05-16 Outpatient R [facility] [id number] -[id number] Univers 08:45:00 08:45:[address] [facility] 2020-05-16 2020-05-16 Outpatient R [facility] [id number] Univers 08:45:00 08:45:[address] [facility] 2020-04-22 2020-04-22 Outpatient R [facility] [id number] -[id number] Univers 09:00:00 09:00:00 [id number] ity [facility] 2020-04-22 2020-04-22 Outpatient R [facility] [id number] Univers 09:00:00 09:00:00 ity [facility] 2020-04-20 2020-04-20 Outpatient R JUN, [facility] [id number]-20 Univers 09:15:00 09:15:00 PAUL [id number] ity [facility] 2020-04-20 2020-04-20 Outpatient R SUMITKA, [facility] [id number] Univers 09:15:00 09:15:00 PAUL [facility] 2020-04-12 2020-04-12 Outpatient R TK, [facility] [id number] -[id number] Univers 11:20:00 11:20:00 MARLI adeley o f [facility] 2020-04-12 2020-04-12 Outpatient R TK, [facility] [id number] Univers 11:20:00 11:20:00 MARLI ang[address]oy o f [facility] 2020-03-23 2020-03-23 Outpatient R CORALELKA, [facility] [id number] Univers 09:00:00 09:00:00 PAUL [id number] ity [facility] 2020-03-23 2020-03-23 Outpatient R SUMITKA, [facility] [id number] Univers 09:00:00 09:00:00 PAUL [facility] 2019-09-23 2019-09-23 Outpatient R TK, [facility] [id number] -[id number] Univers 09:40:00 09:40:00 MARLI [id number] ity o marlen [facility] 2019-09-23 2019-09-23 Outpatient R TK [facility] [id number] Univers 09:40:00 09:40:00 MARLI paz o f [facility] 2019-09-16 2019-09-16 Outpatient R [facility] [id number] Univers 09:00:00 09:00:[address] [facility] 2019-09-16 2019-09-16 Outpatient R TK [facility] [id number] Univers 09:00:00 09:00:00 MARLI paz o marlen [facility] Results Test Description Test Time Test Comments Results Result Comments Source CBC WITH DIFF 2021-05-06 07:38:22 Test Item Value Reference Range Interpretation Comme nts WBC (test code = 6690-2) See_Comment H [A utomated message] The system which ge nerated this result transmit maria e reference range: 4.20 - 1 0.70 10*3/?L. The reference r nishant was not used to interpr et this result as normal/abnor mal. RBC (test code = 789-8) See_Comment [Au tomated message] The system which ge nerated this result transmit maria e reference range: 4.26 - 5 .52 10*6/?L. The reference r nishant was not used to interpr et this result as normal/abnor mal. HGB (test code = 718-7) 13.1 g/dL 12.2-16.4 HCT (test code = 4544-3) 40.7 % 38.4-49.3 MCV (test code = 787-2) 85.0 fL 81.7-95.6 MCH (test code = 785-6) 27.3 pg 26.1-32.7 MCHC (test code = 786-4) 32.2 g/dL 31.2-35.0 RDW-SD (test code = 79846-9) 50.2 fL 38.5-51.6 RDW-CV (test code = 788-0) 16.1 % 12.1-15.4 H PLT (test code = 777-3) See_Comment [Au tomated message] The system which ge nerated this result transmit maria e reference range: 150 - 32 8 10*3/?L. The reference range was not used to interpret th is result as normal/abnormal . MPV (test code = 17186-1) 9.8 fL 9.8-13.0 NRBC/100 WBC (test code = See_Comment [ Automated message] The [id number]) system which ge nerated this result transmit maria e reference range: 0.0 - 10 .0 /100 WBCs. The reference r nishant was not used to interpr et this result as normal/abnor mal. NRBC x10^3 (test code = <0.01 See_Comment [Au tomated message] The 7996743036) system which ge nerated this result transmit maria e reference range: 10*3/?L. The reference range was not u sed to interpret this result as normal/abnormal . GRAN MAT (NEUT) % (test code 96.2 % = 770-8) IMM GRAN % (test code = 1.80 % 7949113534) LYMPH % (test code = 736-9) 1.6 % MONO % (test code = 5905-5) 0.2 % EOS % (test code = 713-8) 0.0 % BASO % (test code = 706-2) 0.2 % GRAN MAT x10^3(ANC) (test 21.81 10*3/uL 1.99-6.95 H code = 1098106127) IMM GRAN x10^3 (test code = 0.40 10*3/uL 0.00-0.06 H 2972264478) LYMPH x10^3 (test code = 0.36 10*3/uL 1.09-3.23 L 731-0) MONO x10^3 (test code = 0.05 10*3/uL 0.36-1.02 L 742-7) EOS x10^3 (test code = <0.03 0.06-0.53 L 711-2) BASO x10^3 (test code = 0.05 10*3/uL 0.01-0.09 704-7) Lab Interpretation (test Abnormal code = 72486-3) [facility]. METABOLIC PANEL ([id number])2021-05-06 07:35:17 Test Item Value Reference Range Interpretation Comments NA (test code = 135 mmol/L 135-145 0182896206) K (test code = 5.0 mmol/L 3.5-5.0 4709546874) CL (test code = 106 mmol/L 98-108 7470908509) CO2 TOTAL (test code = 22 mmol/L 23-31 L 7756928289) AGAP (test code = 2-16 0171706604) BUN (test code = 53 mg/dL 7-23 H 6870628677) GLUCOSE (test code = 114 mg/dL 70-110 H 0548698915) CREATININE (test code = 0.83 mg/dL 0.60-1.25 1748807885) TOTAL BILI (test code = 1.3 mg/dL 0.1-1.1 H 6614842719) CALCIUM (test code = 12.0 mg/dL 8.6-10.6 H 2545702460) T PROTEIN (test code = 6.5 g/dL 6.3-8.2 5014669564) ALBUMIN (test code = 3.0 g/dL 3.5-5.0 L 8158902554) ALK PHOS (test code = 261 U/L 34-122 H 4985570901) ALTv (test code = 61 U/L 5-50 H 1742-6) AST(SGOT) (test code = 109 U/L 13-40 H 8672687854) eGFR (test code = mL/min/1.73m2 5697210713) ANTON (test code = ANTON) Association of Glomerular Filtration Rate (GFR) and Staging of Kidney Disease* + --+ --+ ------+| GFR (mL/min/1.73 m2) ?| With Kidney Damage ?| ?Without Kidney Damage+ --------+ --------+ +| ?>90 ?| ?Stage one ?| ? Normal ?+ ---+ ---+ -------+| ?60-89 ?| ?Stage two ?| ? Decreased GFR ? + --+ --+ ------+| ?30-59 ?| ?Stage three ?| ? Stage three ? + --+ --+ ------+| ?15-29 ?| ?Stage four ? | ? Stage four ?+ ---+ ---+ -------+| ?<15 (or dialysis) ? ?| ?Stage five ? | ? Stage five ?+ ---+ ---+ -------+ *Each stage assumes the associated GFR level has been in effect for at least three months. ?Stages 1 to 5, with or without kidney disease, indicate chronic kidney disease. Notes: Determination of stages one and two (with eGFR >59mL/min/1.73 m2) requires estimation of kidney damage for at least three months as defined by structural or functional abnormalities of the kidney, manifested by either:Pathological abnormalities or Markers of kidney damage (including abnormalities in the composition of the blood or urine or abnormalities in imaging tests). Lab Interpretation Abnormal (test code = 56890-6) [facility] 07[facility]24:59 Test Item Value Reference Range Interpretation Comments LIPASE (test code = 5735873237) 482 U/L 0-220 H Lab Interpretation (test code = Abnormal 18134-7) [facility] [id number] 03:00:45 Test Item Value Reference Interpretation Comments Range TROPONIN I (test 0.002 ng/mL See_Comment [Automated code = 9231862379) message] The system which generated this result transmitted reference range : <=0.034. The reference range was not used to interpret this result as normal/abnormal . ANTON (test code = Reference (Normal) ANTON) Range (defined by the 99th percentile reference limit): <= 0.034 ng/mL Note: Cardiac troponin begins to rise 3-4 hours after the onset of ischemia. Repeat in 4-6 hours if the sample was drawn within 3-4 hours of the onset of the symptom and found normal. Diagnosis of myocardial injury is made with acute changes in cTn concentrations with at least one serial sample above the 99th percentile upper reference limit (URL), taken together with the patient's clinical presentation. Biotin has been reported to cause a negative bias, interpret results relative to patient's use of biotin. Lab Interpretation Normal (test code = 94274-4) [facility]OLIC PAN[facility] (NA, K, CL, CO2, GLUCOSE, BUN, CREATININE, CA)2021-03-22 02:49:26 Test Item Value Reference Range Interpretation Comments NA (test code = 135 mmol/L 135-145 6412425390) K (test code = 4.7 mmol/L 3.5-5.0 1790117240) CL (test code = 101 mmol/L 98-108 9761230371) CO2 TOTAL (test code 24 mmol/L 23-31 = 5667759117) AGAP (test code = 2-16 0738801015) BUN (test code = 15 mg/dL 7-23 6401636599) GLUCOSE (test code = 103 mg/dL 70-110 4115335804) CREATININE (test code 0.95 mg/dL 0.60-1.25 = 1295226501) CALCIUM (test code = 10.0 mg/dL 8.6-10.6 1068485111) eGFR (test code = mL/min/1.73m2 2176343700) ANTON (test code = ANTON) Association of Glomerular Filtration Rate (GFR) and Staging of Kidney Disease* + + +- +| GFR (mL/min/1.73 m2) ?| With Kidney Damage ?| ?Without Kidney Damage+ ------+ ----+ ------+| ?>90 ?| ?Stage one ?| ? Normal ?+ -+ + -+| ?60-89 ?| ?Stage two ?| ? Decreased GFR ? + + +- +| ?30-59 ?| ?Stage three ?| ? Stage three ? + + +- +| ?15-29 ?| ?Stage four ? | ? Stage four ?+ -+ + -+| ?<15 (or dialysis) ? ?| ?Stage five ? | ? Stage five ?+ -+ + -+ *Each stage assumes the associated GFR level has been in effect for at least three months. ?Stages 1 to 5, with or without kidney disease, indicate chronic kidney disease. Notes: Determination of stages one and two (with eGFR >59mL/min/1.73 m2) requires estimation of kidney damage for at least three months as defined by structural or functional abnormalities of the kidney, manifested by either:Pathological abnormalities or Markers of kidney damage (including abnormalities in the composition of the blood or urine or abnormalities in imaging tests). [facility] FUN[facility] PANEL ([id number]) (ALB,T.PRO,BILI T,BU/BC,ALT,AST,ALK PHOS)2021-03-22 02:49:26 Test Item Value Reference Range Interpretation Comments TOTAL BILI (test code = 9985324400) 0.7 mg/dL 0.1-1.1 BILI UNCON (test code = 8700079699) 0.4 mg/dL 0.1-1.1 BILI CONJ (test code = 9783935256) 0.0 mg/dL 0.0-0.3 T PROTEIN (test code = 1187764058) 7.5 g/dL 6.3-8.2 ALBUMIN (test code = 9464323092) 4.1 g/dL 3.5-5.0 ALK PHOS (test code = 3435008109) 248 U/L 34-122 H ALTv (test code = 1742-6) 46 U/L 5-50 AST(SGOT) (test code = 2787366125) 70 U/L 13-40 H Lab Interpretation (test code = Abnormal 08199-9) [facility] WITH [id number] 02:39:25 Test Item Value Reference Range Interpretation Comments WBC (test code = See_Comment H [Automated 6790-2) message] The system which generated this result transmit maria e reference range : 4.20 - 10.70 10*3/?L. The reference range was not used to interpret this result as normal/abnormal . RBC (test code = See_Comment [Automated 549-8) message] The system which generated this result transmit maria e reference range : 4.26 - 5.52 10*6/?L. The reference range was not used to interpret this result as normal/abnormal . HGB (test code = 13.1 g/dL 12.2-16.4 718-7) HCT (test code = 39.4 % 38.4-49.3 4544-3) MCV (test code = 87.2 fL 81.7-95.6 787-2) MCH (test code = 29.0 pg 26.1-32.7 785-6) MCHC (test code = 33.2 g/dL 31.2-35.0 786-4) RDW-SD (test code = 42.5 fL 38.5-51.6 56815-4) RDW-CV (test code = 13.3 % 12.1-15.4 788-0) PLT (test code = See_Comment H [Automated 777-3) message] The system which generated this result transmit maria e reference range : 150 - 328 10*3/ ?L. The reference range was not u sed to interpret th is result as normal/abnormal . MPV (test code = 9.4 fL 9.8-13.0 L 13143-5) NRBC/100 WBC (test See_Comment [Automat ed code = 5999041882) message] The system which generated this result transmit maria e reference range : 0.0 - 10.0 /100 WBCs. The reference range was not used to interpret this result as normal/abnormal . NRBC x10^3 (test code <0.01 See_Comment [Auto mated = 9156234724) message] The system which generated this result transmit maria e reference range : 10*3/?L. The reference range was not used to interpret this result as normal/abnormal . GRAN MAT (NEUT) % 76.7 % (test code = 770-8) IMM GRAN % (test code 0.80 % = 1102856377) LYMPH % (test code = 10.3 % 736-9) MONO % (test code = 9.6 % 5905-5) EOS % (test code = 1.9 % 713-8) BASO % (test code = 0.7 % 706-2) GRAN MAT x10^3(ANC) 11.05 10*3/uL 1.99-6.95 H (test code = 2429183581) IMM GRAN x10^3 (test 0.11 10*3/uL 0.00-0.06 H code = 9129887067) LYMPH x10^3 (test code 1.48 10*3/uL 1.09-3.23 = 731-0) MONO x10^3 (test code 1.38 10*3/uL 0.36-1.02 H = 742-7) EOS x10^3 (test code = 0.27 10*3/uL 0.06-0.53 711-2) BASO x10^3 (test code 0.10 10*3/uL 0.01-0.09 H = 704-7) Lab Interpretation Abnormal (test code = 35067-2) [facility] Whole [id number] 02:28:02 Test Item Value Reference Range Interpretation Comments LACTIC ACID (test code = 1.48 mmol/L 0.50-2.20 9096002399) Lab Interpretation (test code = Normal 11056-1) [facility] [id number] 16:51:36 Test Item Value Reference Interpretation Comments Range TROPONIN I (test 0.003 ng/mL See_Comment [Automated code = 7721110407) message] The system which generated this result transmitted reference range : <=0.034. The reference range was not used to interpret this result as normal/abnormal . ANTON (test code = Reference (Normal) ANTON) Range (defined by the 99th percentile reference limit): <= 0.034 ng/mL Note: Cardiac troponin begins to rise 3-4 hours after the onset of ischemia. Repeat in 4-6 hours if the sample was drawn within 3-4 hours of the onset of the symptom and found normal. Diagnosis of myocardial injury is made with acute changes in cTn concentrations with at least one serial sample above the 99th percentile upper reference limit (URL), taken together with the patient's clinical presentation. Biotin has been reported to cause a negative bias, interpret results relative to patient's use of biotin. Lab Interpretation Normal (test code = 94364-1) [facility] [id number] 14:51:08 Test Item Value Reference Interpretation Comments Range TROPONIN I (test 0.003 ng/mL See_Comment [Automated code = 1581671988) message] The system which generated this result transmitted reference range : <=0.034. The reference range was not used to interpret this result as normal/abnormal . ANTON (test code = Reference (Normal) ANTON) Range (defined by the 99th percentile reference limit): <= 0.034 ng/mL Note: Cardiac troponin begins to rise 3-4 hours after the onset of ischemia. Repeat in 4-6 hours if the sample was drawn within 3-4 hours of the onset of the symptom and found normal. Diagnosis of myocardial injury is made with acute changes in cTn concentrations with at least one serial sample above the 99th percentile upper reference limit (URL), taken together with the patient's clinical presentation. Biotin has been reported to cause a negative bias, interpret results relative to patient's use of biotin. Lab Interpretation Normal (test code = 45606-2) [facility]-TERMINAL [id number] 14:47:52 Test Item Value Reference Range Interpretation Comments NT-proBNP (test code 1110 pg/mL See_Comment H [Autom ated = 4368311767) message] The system which generated this result transmitted reference range : <=125. The reference range was not used to interpret this result as normal/abnormal . ANTON (test code = ANTON) Biotin has been reported to cause a negative bias, interpret results relative to patient's use of biotin. Lab Interpretation Abnormal (test code = 35372-8) [facility]. METABOLIC PANEL (63140)2021-03-11 14:39:29 Test Item Value Reference Range Interpretation Comments NA (test code = 139 mmol/L 135-145 4408337859) K (test code = 4.1 mmol/L 3.5-5.0 6699432532) CL (test code = 103 mmol/L 98-108 5249527523) CO2 TOTAL (test code = 27 mmol/L 23-31 2923497143) AGAP (test code = 2-16 2764082987) BUN (test code = 19 mg/dL 7-23 4166310551) GLUCOSE (test code = 110 mg/dL 70-110 5498374972) CREATININE (test code = 1.03 mg/dL 0.60-1.25 0806084848) TOTAL BILI (test code = 0.8 mg/dL 0.1-1.6 5075716134) CALCIUM (test code = 9.7 mg/dL 8.6-10.6 0815029987) T PROTEIN (test code = 7.1 g/dL 6.3-8.2 5873727683) ALBUMIN (test code = 4.0 g/dL 3.5-5.0 7026712889) ALK PHOS (test code = 187 U/L 34-122 H 3179366264) ALTv (test code = 30 U/L 5-50 1742-6) AST(SGOT) (test code = 57 U/L 13-40 H 0258125731) eGFR (test code = mL/min/1.73m2 7475226802) ANTON (test code = ANTON) Association of Glomerular Filtration Rate (GFR) and Staging of Kidney Disease* + --+ --+ ------+| GFR (mL/min/1.73 m2) ?| With Kidney Damage ?| ?Without Kidney Damage+ --------+ --------+ +| ?>90 ?| ?Stage one ?| ? Normal ?+ ---+ ---+ -------+| ?60-89 ?| ?Stage two ?| ? Decreased GFR ? + --+ --+ ------+| ?30-59 ?| ?Stage three ?| ? Stage three ? + --+ --+ ------+| ?15-29 ?| ?Stage four ? | ? Stage four ?+ ---+ ---+ -------+| ?<15 (or dialysis) ? ?| ?Stage five ? | ? Stage five ?+ ---+ ---+ -------+ *Each stage assumes the associated GFR level has been in effect for at least three months. ?Stages 1 to 5, with or without kidney disease, indicate chronic kidney disease. Notes: Determination of stages one and two (with eGFR >59mL/min/1.73 m2) requires estimation of kidney damage for at least three months as defined by structural or functional abnormalities of the kidney, manifested by either:Pathological abnormalities or Markers of kidney damage (including abnormalities in the composition of the blood or urine or abnormalities in imaging tests). Lab Interpretation Abnormal (test code = 18511-5) [facility] WITH [id number] 14:19:46 Test Item Value Reference Range Interpretation Comments WBC (test code = See_Comment H [Automated 7990-2) message] The sy stem which generated this result transmitted reference range : 4.20 - 10.70 10*3/?L. The reference range was not used to interpret this result as normal/abnormal . RBC (test code = See_Comment [Automated 239-8) message] The sy stem which generated this result transmitted reference range : 4.26 - 5.52 10*6/?L. The reference range was not used to interpret this result as normal/abnormal . HGB (test code = 13.8 g/dL 12.2-16.4 718-7) HCT (test code = 41.7 % 38.4-49.3 4544-3) MCV (test code = 88.7 fL 81.7-95.6 787-2) MCH (test code = 29.4 pg 26.1-32.7 785-6) MCHC (test code = 33.1 g/dL 31.2-35.0 786-4) RDW-SD (test code = 42.9 fL 38.5-51.6 69235-4) RDW-CV (test code = 13.1 % 12.1-15.4 788-0) PLT (test code = See_Comment [Automated 777-3) message] The sy stem which generated this result transmitted reference range : 150 - 328 10*3/ ?L. The reference r nishant was not used to interpret this result as normal/abnormal . MPV (test code = 9.6 fL 9.8-13.0 L 99996-2) NRBC/100 WBC (test See_Comment [Automat ed code = 3952228135) message] The system which generated this result transmitted reference range : 0.0 - 10.0 /100 WBCs. The refer ence range was not u sed to interpret th is result as normal/abnormal . NRBC x10^3 (test code <0.01 See_Comment [Auto mated = 3147002640) message] The s ystem which generated this result transmitted reference range : 10*3/?L. The reference range was not used to interpret this result as normal/abnormal . GRAN MAT (NEUT) % 74.3 % (test code = 770-8) IMM GRAN % (test code 0.80 % = 0612356920) LYMPH % (test code = 12.3 % 736-9) MONO % (test code = 8.9 % 5905-5) EOS % (test code = 3.1 % 713-8) BASO % (test code = 0.6 % 706-2) GRAN MAT x10^3(ANC) 8.38 10*3/uL 1.99-6.95 H (test code = 6887618508) IMM GRAN x10^3 (test 0.09 10*3/uL 0.00-0.06 H code = [id number]) LYMPH x10^3 (test code 1.39 10*3/uL 1.09-3.23 = 731-0) MONO x10^3 (test code 1.00 10*3/uL 0.36-1.02 = 742-7) EOS x10^3 (test code = 0.35 10*3/uL 0.06-0.53 711-2) BASO x10^3 (test code 0.07 10*3/uL 0.01-0.09 = 704-7) Lab Interpretation Abnormal (test code = 66865-6) [facility]"
[2021-05-06] MEDS ORDERED: FENTANYL CITR 100 MCG/2 ML ONE ×2 (22:18→23:56)
[2021-05-06] MEDS ORDERED: ONDANSETRON 4 MG/2 ML VIAL ONE ×2 (22:19→23:56)
[2021-05-06 23:04] LABS: Absolute Lymphocytes (CBC) 0.7 K/uL (0.7-4.9); Basophils % 0.4 % (0-1.3); Hematocrit 39.9 % (39.6-49.0); Lymphocytes % 4.6 % (15.3-44.8); MPV 7.5 fL (7.6-11.3); RBC Red Blood Cell Count 4.75 M/uL (4.33-5.43)
[2021-05-06 23:08] LABS: Protime INR 1.39
[2021-05-06 23:19] LABS: ALT/SGPT 58 U/L (12-78); AST/SGOT 74 U/L (15-37); Albumin 2.4 g/dL (3.4-5.0); Alkaline Phosphatase 232 U/L (45-117); BUN Blood Urea Nitrogen 54 mg/dL (7-18); Bicarbonate 22 mmol/L (21-32); Bilirubin Direct 0.6 mg/dL (0-0.2); Bilirubin Total 1.1 mg/dL (0.2-1.0); Glucose Level 90 mg/dL (74-106); Magnesium 2.8 mg/dL (1.8-2.4); NT PRO-BNP 3851 pg/mL (<125); Potassium 4.7 mmol/L (3.5-5.1); Protein, Total 6.7 g/dL (6.4-8.2); Sodium Level 141 mmol/L (136-145); Troponin (Emerg Dept Use Only) 0.03 ng/mL (0.0-0.045)
[2021-05-06 23:37] LABS: Urine Blood 1+ (Negative); Urine Glucose Negative (Negative); Urine Protein Trace (Negative); Urine pH 5.5 (5.0-7.0)
[2021-05-06 23:54] LABS: Urine Bacteria >50 /HPF (NONE SEEN); Urine Mucus 2+ /HPF (NONE SEEN)
[2021-05-07] MEDS ORDERED: NA CHLORIDE 0.9% 50 ML ONE ×2 (01:12→23:41)
[2021-05-07] MEDS ORDERED: CEFTRIAXONE 1000 MG/VIAL ONE (01:12)
--- NOTE | 2021-05-07 01:14 | EDPHYS ---
Physician Documentation [facility] Name: Sesar Alcantara Age: 66 yrs Sex: Male : 1955 Arrival Date: 05/06/2021 Time: 21:14 Bed 13 Private MD: ED Physician Arian Kauffman HPI: 05/06 22:20 This 66 yrs old Male presents to ER via Wheelchair with complaints of GENERAL cp PAIN, HARD TIME SWOLLOWING. 22:20 The patient presents with abdominal pain that is diffuse, abdominal distention that is cp diffuse. 22:20 Onset: The symptoms/episode began/occurred gradually. The patient presents with cp confusion. Onset: The symptoms/episode began/occurred today. Associated signs and symptoms: Pertinent positives: abdominal pain, decreased appetite, Pertinent negatives: chest pain, headache, fever. Family reports patient has history of stage 4 bile duct cancer and received first dose of chemo this past week. Patient has not been eating and/or drinking much and has been confused since today. Was seen at [facility] yesterday and started on oral Cipro for "abdominal infection". Historical: - Allergies: 21:24 No Known Allergies; ss - PMHx: 21:24 Stage IV bile duct CA; Hypertensive disorder; Hypercholesterolemia; ss 05/07 02:01 liver cancer; df1 - PSHx: 02:01 Cholecystectomy; df1 - Immunization history:: Client reports receiving the 2nd dose of the Covid vaccine. - Social history:: Smoking status: Patient denies any tobacco usage or history of. ROS: 05/06 22:25 Constitutional: Negative for fever, poor PO intake. cp 22:25 Eyes: Negative for injury, pain, redness, and discharge. cp 22:25 ENT: Negative for ear pain, sore throat, difficulty swallowing, difficulty handling secretions. 22:25 Cardiovascular: Negative for chest pain. 22:25 Respiratory: Negative for cough, shortness of breath, wheezing. 22:25 Abdomen/GI: Positive for abdominal pain, anorexia, Negative for vomiting, diarrhea. 22:25 Skin: Negative for cellulitis, rash. 22:25 Neuro: Positive for altered mental status, Negative for headache. 22:25 All other systems are negative. Exam: 22:28 Constitutional: The patient appears in no acute distress, alert, awake, cp non-diaphoretic, non-toxic, well developed, well nourished, uncomfortable. 22:28 Head/Face: Normocephalic, atraumatic. cp 22:28 Eyes: Periorbital structures: appear normal, Conjunctiva: normal, no exudate, no injection, Sclera: no appreciated abnormality, Lids and lashes: appear normal, bilaterally. 22:28 ENT: External ear(s): are unremarkable, Nose: is normal, Mouth: Lips: dry, Oral mucosa: moist, Posterior pharynx: Airway: no evidence of obstruction, patent, Tonsils: are normal in appearance, swelling, is not appreciated, erythema, is not appreciated, exudate, is not appreciated. 22:28 Neck: ROM/movement: is normal, is supple, without pain, no range of motions limitations. 22:28 Chest/axilla: Inspection: normal, Palpation: is normal, no crepitus, no tenderness. 22:28 Cardiovascular: Rate: normal, Rhythm: regular, Edema: ankle edema, that is mild, JVD: is not appreciated. 22:28 Respiratory: the patient does not display signs of respiratory distress, Respirations: normal, no use of accessory muscles, no retractions, labored breathing, is not present, Breath sounds: are clear throughout, no decreased breath sounds, no stridor, no wheezing. 22:28 Abdomen/GI: Inspection: distension, that is moderate, Bowel sounds: active, all quadrants, Palpation: soft, in all quadrants, moderate abdominal tenderness, in all quadrants, rebound tenderness, is not appreciated, voluntary guarding, is elicited in all quadrants. 22:28 Back: CVA tenderness, is absent. 22:28 Skin: no rash present. 22:28 Neuro: Orientation: to person, Not oriented to place, time, Mentation: able to follow commands, confused, Motor: moves all fours, strength is normal. 22:30 ECG was reviewed by the Attending Physician. cp Vital Signs: 21:21 BP 110 / 74; Pulse 98; Resp 17; Temp 99.0(TE); Pulse Ox 100% on R/A; Weight 72.57 kg; ss Height 5 ft. 4 in. (162.56 cm); Pain 8/10; 23:02 BP 116 / 63; Pulse 86; Resp 18; Pulse Ox 100% on R/A; df1 11/28 00:03 BP 134 / 65; Pulse 90; Resp 18; Pulse Ox 97% on R/A; Pain 6/10; df1 00:34 Temp 98.3(O); cs8 01:30 BP 143 / 71; Pulse 91; Resp 18; Pulse Ox 100% on R/A; df1 05/06 21:21 Body Mass Index 27.46 (72.57 kg, 162.56 cm) ss MDM: 05/06 21:53 Patient medically screened. cp 22:30 Differential Diagnosis: CVA, electrolyte abnormality, pneumonia, sepsis, UTI, volume cp depletion. 05/07 01:00 Data reviewed: vital signs, nurses notes, lab test result(s), EKG, radiologic studies, cp CT scan, plain films. 01:00 Test interpretation: by ED physician or midlevel provider: ECG, plain radiologic cp studies. Counseling: I had a detailed discussion with the patient and/or guardian regarding: the historical points, exam findings, and any diagnostic results supporting the discharge/admit diagnosis, lab results, radiology results, the need for further work-up and treatment in the hospital. 05/06 22:13 Order name: Basic Metabolic Panel 05/06 22:13 Order name: CBC with Diff cp 05/06 22:13 Order name: LFT's cp 05/06 22:13 Order name: Magnesium; Complete Time: 23:45 05/06 23:45 Interpretation: MG 2.8; Reviewed. 05/06 22:13 Order name: NT PRO-BNP; Complete Time: 23:45 05/06 23:45 Interpretation: Abnormal: NT PRO-BNP 3851. 05/06 22:13 Order name: PT-INR; Complete Time: 23:45 05/06 22:13 Order name: Troponin (emerg Dept Use Only); Complete Time: 23:45 05/06 22:13 Order name: Blood Culture Adult (2) 05/06 22:13 Order name: Procalcitonin; Complete Time: 23:45 05/06 23:46 Interpretation: Procalcitonin 1.62; Reviewed. 05/06 22:13 Order name: Lactate; Complete Time: 23:45 05/06 23:47 Interpretation: LAC 1.6; Reviewed. 05/06 22:13 Order name: Ptt, Activated; Complete Time: 23:45 05/06 22:13 Order name: AMMONIA; Complete Time: 23:45 05/06 22:13 Order name: Urine Microscopic Only; Complete Time: 00:50 05/07 00:50 Interpretation: Normal except: UWBC 5-10; URBC 10-20; UBACT >50. 05/06 22:13 Order name: Basic Metabolic Panel; Complete Time: 23:45 EDMS 05/07 00:51 Interpretation: Normal except: CL 111; BUN 54; CA 11.5. 05/06 22:13 Order name: XRAY Chest (1 view) 05/06 22:13 Order name: EKG; Complete Time: 22:14 05/06 22:13 Order name: CT Head Brain wo Cont 05/06 22:13 Order name: CT Abd/Pelvis - IV Contrast Only 05/06 22:13 Order name: CBC with Automated Diff; Complete Time: 23:45 EDUT 05/06 23:46 Interpretation: Normal except: WBC 14.30; HGB 12.6; MCH 26.6; MCHC 31.7; RDW 17.4; MPV cp 7.5; LUCIUS% 93.8; LYM% 4.6; MN% 1.0; NEUT A 13.5. 05/06 22:13 Order name: Liver (Hepatic) Function; Complete Time: 23:45 EDUT 05/06 23:46 Interpretation: Normal except: AST 74; ALK 232; BILIT 1.1; BILID 0.6; ALB 2.4; GLOB cp 4.3; A/G 0.6. 05/06 22:18 Order name: COVID-19 (Coronavirus) Document "Date of Onset" if Symptomatic 05/06 23:02 Order name: SARS-COV-2 RT PCR; Complete Time: 00:50 EDUT 05/06 23:36 Order name: Urine Dipstick-Ancillary; Complete Time: 23:45 EDUT 05/06 23:55 Order name: Urine Culture [facility] 05/06 22:13 Order name: Cardiac monitoring; Complete Time: 23:01 05/06 22:13 Order name: EKG - Nurse/Tech; Complete Time: 23:01 05/06 22:13 Order name: IV Saline Lock; Complete Time: 23:01 05/06 22:13 Order name: Labs collected and sent; Complete Time: 23:01 cp 05/06 22:13 Order name: O2 Per Protocol; Complete Time: 23:47 cp 05/06 22:13 Order name: O2 Sat Monitoring; Complete Time: 23:47 cp 05/06 22:13 Order name: Cath; Complete Time: 23:46 cp 05/06 22:13 Order name: Urine Dipstick-Ancillary (obtain specimen); Complete Time: 23:46 cp EC/27 22:30 Rate is 89 beats/min. Rhythm is regular. MS interval is normal. QRS interval is cp prolonged at 106 msec. QT interval is normal. T waves are Inverted in leads III, aVF, aVR. Interpreted by me. Reviewed by me. Administered Medications: 23:02 Drug: fentaNYL (PF) 25 mcg Route: IVP; Site: right wrist; df1 05/07 00:47 Follow up: Response: No change in condition df1 05/06 23:02 Drug: Zofran (Ondansetron) 4 mg Route: IVP; Site: right wrist; df1 05/07 00:47 Follow up: Response: No change in condition df1 00:02 Drug: Zofran (Ondansetron) 4 mg Route: IVP; Site: right forearm; df1 00:46 Follow up: Response: No change in condition df1 02:00 Follow up: Response: Nausea is decreased df1 00:03 Drug: fentaNYL (PF) 25 mcg Route: IVP; Site: right forearm; df1 00:46 Follow up: Response: No change in condition df1 02:00 Follow up: Response: Pain is decreased df1 01:29 Drug: Rocephin (cefTRIAXone) 1 grams Route: IV; Rate: calculated rate; Site: right df1 forearm; 02:00 Follow up: IV Status: Completed infusion; IV Intake: 50ml df1 Disposition: 05:48 Co-signature as Attending Physician, Arian Kauffman MD. [email or web address] Disposition Summary: 05/07/21 01:13 Hospitalization Ordered Hospitalization Status: Inpatient Admission cp Provider: Andrew Trivedi cp Location: Telemetry/MedSurg (Inpatient) cp Condition: Stable cp Problem: new cp Symptoms: have improved cp Bed/Room Type: Standard cp Room Assignment: 212(05/07/21 01:19) cg Diagnosis - Altered mental status, unspecified cp - UTI/ Urinary tract infection, site not specified cp Forms: - Medication Reconciliation Form cp - SBAR form cp Signatures: Dispatcher [employer] EDMS Heather Gonzalez RN RN ss González Wood PA PA cp Garcia, Cindy, RN RN cg Arian Kauffman MD MD [email or web address] Kacey Stevenson df1 Corrections: (The following items were deleted from the chart) 05/06 21:25 21:24 PSHx: L shoulder; ss ss 23:02 22:18 CORONAVIRUS ordered. EDMS EDMS 05/07 00:51 05/06 23:46 Normal except: CL 111; BUN 54. cp cp 05/07 01:19 01:13 cp cg
--- NOTE | 2021-05-07 01:14 | ER ---
Nurse's Notes [facility] Name: Sesar Alcantara Age: 66 yrs Sex: Male : 1955 Arrival Date: 05/06/2021 Time: 21:14 Bed 13 Private MD: Diagnosis: Altered mental status, unspecified;UTI/ Urinary tract infection, site not specified Presentation: 05/06 21:21 Chief complaint: Patient states: Seen at [facility] ER yesterday for abd pain. Pt ss has history of Stage IV bile duct CA and recently started chemo. Daughter in law states that they wanted to admit him into the hospital yesterday, but he didn't want to stay and he has not been eating/ drinking and or wanting to take his prescribed antibiotics. Family is concerned because today he seems to be hallucinating and becoming increasingly confused. Coronavirus screen: Client denies travel out of the [place] in the last 14 days. Ebola Screen: Patient denies exposure to infectious person. Patient denies travel to an Ebola-affected area in the 21 days before illness onset. Initial Sepsis Screen: Does the patient meet any 2 criteria? Does the patient have a suspected source of infection? Yes: Other: possible abd infection. Risk Assessment: Do you want to hurt yourself or someone else? Patient reports no desire to harm self or others. Onset of symptoms was May 05, 2021. 21:21 Method Of Arrival: Wheelchair 21:21 Acuity: MARLEEN 3 05/07 01:31 Note 1+ pit edema noted to BLE. df1 Triage Assessment: 05/06 23:04 General: Appears uncomfortable, unkempt, Behavior is calm, cooperative. Pain: Complains df1 of pain in abdomen Pain does not radiate. Pain at worst was 8 out of 10 on a pain scale. Historical: - Allergies: 21:24 No Known Allergies; ss - PMHx: 21:24 Stage IV bile duct CA; Hypertensive disorder; Hypercholesterolemia; ss 05/07 02:01 liver cancer; df1 - PSHx: 02:01 Cholecystectomy; df1 - Immunization history:: Client reports receiving the 2nd dose of the Covid vaccine. - Social history:: Smoking status: Patient denies any tobacco usage or history of. Screenin/27 23:03 Abuse screen: Denies threats or abuse. Nutritional screening: No deficits noted. df1 Tuberculosis screening: No symptoms or risk factors identified. Fall Risk Fall in past 12 months (25 points). Secondary diagnosis (15 points) impaired mobility, IV access (20 points). Ambulatory Aid- None/Bed Rest/Nurse Assist (0 pts). Gait- Impaired (20 pts.). Mental Status- Overestimates/Forgets Limitations (15 pts.). Assessment: 05/07 00:42 General: Appears uncomfortable, ill, unkempt, Behavior is calm, cooperative. Pain: df1 Complains of pain in abdomen Pain does not radiate. Pain at worst was 10 out of 10 on a pain scale. Neuro: Level of Consciousness is confused, Oriented to person, Riverboat Master are equal bilaterally Moves all extremities. Weakness Speech is normal, Facial symmetry appears normal, Reports difficulty swallowing since Pt states difficult to swallow and family states pt unable to swallow pills and chokes on small sips of water. Family states pt not eating. Cardiovascular: No deficits noted. Respiratory: Airway is patent Trachea midline Respiratory effort is even, unlabored, Respiratory pattern is regular, symmetrical. GI: Abdomen is distended, obese, Bowel sounds present X 4 quads. Abd is soft Abdomen is tender to palpation X 4 quads. Reports lower abdominal pain, upper abdominal pain, nausea. : No deficits noted. EENT: No deficits noted. Musculoskeletal: No deficits noted. 01:31 Cardiovascular:. df1 Vital Signs: 05/06 21:21 BP 110 / 74; Pulse 98; Resp 17; Temp 99.0(TE); Pulse Ox 100% on R/A; Weight 72.57 kg; Height 5 ft. 4 in. (162.56 cm); Pain 8/10; 23:02 BP 116 / 63; Pulse 86; Resp 18; Pulse Ox 100% on R/A; df1 05/07 00:03 BP 134 / 65; Pulse 90; Resp 18; Pulse Ox 97% on R/A; Pain 6/10; df1 00:34 Temp 98.3(O); cs8 01:30 BP 143 / 71; Pulse 91; Resp 18; Pulse Ox 100% on R/A; df1 05/06 21:21 Body Mass Index 27.46 (72.57 kg, 162.56 cm) ED Course: 05/06 21:14 Patient arrived in ED. ja2 21:24 Triage completed. ss 21:25 Arm band placed on right wrist. ss 21:47 González Wood PA is PHCP. cp 21:47 Arian Kauffman MD is Attending Physician. cp 22:15 Kacey Stevenson is Primary Nurse. df1 22:37 No provider procedures requiring assistance completed. Inserted saline lock: 22 gauge df1 in right forearm, using aseptic technique. 22:48 XRAY Chest (1 view) In Process Unspecified. EDMS 23:01 COVID-19 (Coronavirus) Document "Date of Onset" if Symptomatic Sent. df1 23:01 Liver (Hepatic) Function Sent. df1 23:01 Basic Metabolic Panel Sent. df1 23:01 CBC with Automated Diff Sent. df1 23:01 AMMONIA Sent. df1 23:01 Ptt, Activated Sent. df1 23:01 Lactate Sent. df1 23:01 Procalcitonin Sent. df1 23:01 Blood Culture Adult (2) Sent. df1 23:01 Basic Metabolic Panel Sent. df1 23:01 CBC with Diff Sent. df1 23:01 LFT's Sent. df1 23:02 Troponin (emerg Dept Use Only) Sent. df1 23:02 PT-INR Sent. df1 23:02 NT PRO-BNP Sent. df1 23:02 Magnesium Sent. df1 23:03 Patient has correct armband on for positive identification. Placed in gown. Bed in low df1 position. Call light in reach. Side rails up X 1. Adult w/ patient. silicator on. Pulse ox on. NIBP on. 23:46 CT Abd/Pelvis - IV Contrast Only Sent. df1 23:46 CT Head Brain wo Cont Sent. df1 23:47 Reyes cath inserted, using sterile technique, 16 Fr., by pr, balloon inflated, to df1 gravity drainage, urine specimen collected. 05/07 00:05 CT Head Brain wo Cont In Process Unspecified. EDMS 00:07 CT Abd/Pelvis - IV Contrast Only In Process Unspecified. EDMS 01:12 Andrew Trivedi MD is Hospitalizing Provider. cp 02:19 Patient admitted, IV remains in place. df1 Administered Medications: 05/06 23:02 Drug: fentaNYL (PF) 25 mcg Route: IVP; Site: right wrist; df1 05/07 00:47 Follow up: Response: No change in condition df1 05/06 23:02 Drug: Zofran (Ondansetron) 4 mg Route: IVP; Site: right wrist; df1 05/07 00:47 Follow up: Response: No change in condition df1 00:02 Drug: Zofran (Ondansetron) 4 mg Route: IVP; Site: right forearm; df1 00:46 Follow up: Response: No change in condition df1 02:00 Follow up: Response: Nausea is decreased df1 00:03 Drug: fentaNYL (PF) 25 mcg Route: IVP; Site: right forearm; df1 00:46 Follow up: Response: No change in condition df1 02:00 Follow up: Response: Pain is decreased df1 01:29 Drug: Rocephin (cefTRIAXone) 1 grams Route: IV; Rate: calculated rate; Site: right df1 forearm; 02:00 Follow up: IV Status: Completed infusion; IV Intake: 50ml df1 Intake: 02:00 IV: 50ml; Total: 50ml. df1 Outcome: 01:13 Decision to Hospitalize by Provider. cp 02:18 Admitted to Med/surg accompanied by tech. df1 02:18 Condition: stable 02:18 Instructed on the need for admit. 02:19 Patient left the ED. df1 Signatures: Dispatcher [employer] EDHeather Reeves, RN RN González Whittington PA PA cp Sundriyal, Christina 8 Robina Milan Dawn df1 Corrections: (The following items were deleted from the chart) 05/06 21:25 21:24 PSHx: L shoulder; [facility] 23:02 23:01 CORONAVIRUS drawn and sent. df1 EDMS
[2021-05-07] MEDS ORDERED: ONDANSETRON 4 MG/2 ML VIAL IV PRN (01:43)
[2021-05-07] MEDS ORDERED: ACETAMINOPHEN 500 MG TAB PO PRN (01:43)
--- NOTE | 2021-05-07 02:26 | P.HP ---
Certification for Inpatient Patient admitted to: Inpatient With expected LOS: >2 Midnights Patient will require the following post-hospital care: None Practitioner: I am a practitioner with admitting privileges, knowledge of patient current condition, hospital course, and medical plan of care. Services: Services provided to patient in accordance with Admission requirements found in Title 42 Section 412.3 of the Code of Federal Regulations <Brandon Wang - Last Filed: 05/07/21 02:20> Patient History Date of Service: 05/07/21 Primary Care Provider: Kiara Reason for admission: UTI, AMS, inability to swallow History of Present Illness: Mr. Alcantara is a 66 yo M with stage IV liver adenocarcinoma, CHF, HLD, HTN who presents with 4 days of 8/10 abdominal pain and back pain. He also reports nausea and vomiting. Denies fever. He was seen yesterday at [place] and discharged on levofloxacin for a UTI. He returns to hospital today for intermittent confusion. He is able to answer all my questions appropriately, albeit slowly. He is oriented to person and place, but not today's date. Family also reports he has had difficulty swallowing pills and fluids beginning yesterday. They called his oncologist and she told him to report to the ED. He began chemo last Saturday. He has been wearing an eye patch due to blurry vision as a side effect of the chemo.WBC 14.3 BNP 3851 procal 1.62. - Past Medical/Surgical History -: stage IV liver adenocarcinoma -: CHF -: HLD -: HTN -: shoulder surgery - Family History Family History: Reviewed- Non-Contributory - Social History Smoking Status: Current every day smoker Alcohol use: No CD- Drugs: No Caffeine use: No Place of Residence: Home <Brandon Wang - Last Filed: 05/07/21 02:20> Date of Service: 05/07/21 <Andrew Trivedi - Last Filed: 05/07/21 12:28> Allergies No Known Allergies Allergy (Verified 05/07/21 01:26) Home Medications: Hydrocodone Bit/Acetaminophen [[place] 10-325 Tablet] 1 each PO Q6HP PRN 05/07/21 Tizanidine [Zanaflex] 4 mg PO DAILY 05/07/21 dexAMETHasone [Dexamethasone] 4 mg PO DAILY 05/07/21 Review of Systems 10-point ROS is otherwise unremarkable General: Unremarkable Eyes: Vision Change ENT: As per HPI Respiratory: Unremarkable Cardiovascular: Unremarkable Gastrointestinal: Nausea, Vomiting, Abdominal Pain Genitourinary: Unremarkable Musculoskeletal: Unremarkable Integumentary: Unremarkable Neurological: Confusion Lymphatics: Unremarkable <Brandon Wang - Last Filed: 05/07/21 02:20> Physical Examination - Physical Exam General: Alert, In no apparent distress, Oriented x2, Cooperative HEENT: Atraumatic, PERRLA, Mucous membr. moist/pink, EOMI Neck: Supple, 2+ carotid pulse no bruit, No LAD, Without JVD or thyroid abnormality Respiratory: Clear to auscultation bilaterally, Normal air movement Cardiovascular: Regular rate/rhythm, Normal S1 S2, Edema (3+ bilaterally) Gastrointestinal: Normal bowel sounds, Soft and benign, Non-distended, No tenderness Musculoskeletal: No tenderness Integumentary: No rashes Neurological: Normal speech, Normal strength at 5/5 x4 extr, Normal tone, Abnormal gait, Abnormal affect Lymphatics: No axilla or inguinal lymphadenopathy - Studies Laboratory Data (last 24 hrs) 05/06/21 22:39: PT 16.0 H, INR 1.39, APTT 27.1 05/06/21 22:39: WBC 14.30 H, Hgb 12.6 L, Hct 39.9, Plt Count 157 05/06/21 22:39: Sodium 141, Potassium 4.7, BUN 54 H, Creatinine 0.83, Glucose 90, Magnesium 2.8 H, Total Bilirubin 1.1 H, AST 74 H, ALT 58, Alkaline Phosphatase 232 H <Brandon Wang - Last Filed: 05/07/21 02:20> - Studies Laboratory Data (last 24 hrs) 05/06/21 22:39: PT 16.0 H, INR 1.39, APTT 27.1 05/06/21 22:39: WBC 14.30 H, Hgb 12.6 L, Hct 39.9, Plt Count 157 05/06/21 22:39: Sodium 141, Potassium 4.7, BUN 54 H, Creatinine 0.83, Glucose 90, Magnesium 2.8 H, Total Bilirubin 1.1 H, AST 74 H, ALT 58, Alkaline Phosphatase 232 H <Andrew Trivedi - Last Filed: 05/07/21 12:28> Assessment and Plan - Problems (Diagnosis) (1) Liver cancer Current Visit: Yes Status: Chronic Qualifiers: Liver malignancy type: unspecified liver malignancy Qualified Code(s): C22.9 - Malignant neoplasm of liver, not specified as primary or secondary (2) CHF (congestive heart failure) Current Visit: Yes Status: Chronic Qualifiers: Heart failure type: unspecified Heart failure chronicity: chronic Qualified Code(s): I50.9 - Heart failure, unspecified (3) HLD (hyperlipidemia) Current Visit: Yes Status: Chronic Qualifiers: Hyperlipidemia type: unspecified Qualified Code(s): E78.5 - Hyperlipidemia, unspecified (4) HTN (hypertension) Current Visit: Yes Status: Chronic Qualifiers: Hypertension type: primary hypertension Qualified Code(s): I10 - Essential (primary) hypertension (5) UTI (urinary tract infection) Current Visit: Yes Status: Acute Qualifiers: Urinary tract infection type: site unspecified Hematuria presence: with hematuria Qualified Code(s): N39.0 - Urinary tract infection, site not specifi ed; R31.9 - Hematuria, unspecified (6) AMS (altered mental status) Current Visit: Yes Status: Acute Qualifiers: Altered mental status type: unspecified Qualified Code(s): R41.82 - Altered mental status, unspecified (7) Difficulty swallowing Current Visit: Yes Status: Acute Qualifiers: Dysphagia type: unspecified Qualified Code(s): R13.10 - Dysphagia, unspecified - Plan continue IV antibiotics continue pain management and antiemetics bedside swallow pending, NPO speech and dietitian consulted ECHO pending, daily weights reconcile and continue home medications DVT ppx Discharge Plan: Home Plan to discharge in: 48 Hours - Advance Directives Does patient have a Living Will: No Does patient have a Durable POA for Healthcare: No - Code Status/Comfort Care Code Status Assessed: Yes (full code ) Critical Care: No Time Spent Managing Pts Care (In Minutes): 70 <Brandon Wang - Last Filed: 05/07/21 02:20> - Plan Patient seen and examined on rounds this morning. He reports some mild improvement in his pain, but continues with upper abdominal discomfort States he has some burping and feeling of pain after he swallows anything, no feeling like he is choking or food/liquids getting stuck Alert and oriented x3 Possible esophagitis/gastritis, gastric ulcer. Patient with upper abdominal tenderness: Epigastric and RUQ. No diffuse tenderness, mild amount of ascites, do not suspect SBP at this time Gentle IV fluids, swallow eval Start Protonix, Carafate If no improvement, may need GI consult, currently unavailable <Andrew Trivedi - Last Filed: 05/07/21 12:28>
[2021-05-07 03:17] VITALS: BMI 26.1
[2021-05-07] MEDS: MORPHINE 2 MG/ML SYR IV PRN (09:14)
[2021-05-07] MEDS: D5 0.45 NS 1,000 ML IV SCH ×2 (11:13→23:49)
[2021-05-07] MEDS ORDERED: SODIUM CHLORIDE 0.9% 10ML INJ IV PRN (11:26)
--- NOTE | 2021-05-07 11:44 | RAD REPORT ---
EXAM DESCRIPTION: RAD - Chest Single View - 05/06/2021 10:48 pm CLINICAL HISTORY: ABDOMINAL DISTENTION Chest pain. COMPARISON: No comparisons FINDINGS: Portable technique limits examination quality. Slight asymmetric interstitial lung markings are present, greatest in the lung bases. The heart is no rmal in size. No displaced fractures.
[2021-05-07] MEDS: SUCRALFATE 1GM/10ML UCUP FT SCH ×3 (12:09→21:59)
[2021-05-07 13:00] LABS: Absolute Lymphocytes (CBC) 0.7 K/uL (0.7-4.9); Basophils % 0.2 % (0-1.3); Hematocrit 37.4 % (39.6-49.0); Lymphocytes % 6.8 % (15.3-44.8); MPV 7.3 fL (7.6-11.3); RBC Red Blood Cell Count 4.46 M/uL (4.33-5.43)
[2021-05-07 13:14] LABS: ALT/SGPT 50 U/L (12-78); AST/SGOT 71 U/L (15-37); Albumin 2.2 g/dL (3.4-5.0); Alkaline Phosphatase 216 U/L (45-117); BUN Blood Urea Nitrogen 52 mg/dL (7-18); Bicarbonate 23 mmol/L (21-32); Bilirubin Total 0.9 mg/dL (0.2-1.0); Glucose Level 106 mg/dL (74-106); Lipase 61 U/L (73-393); Potassium 4.6 mmol/L (3.5-5.1); Protein, Total 6.4 g/dL (6.4-8.2); Sodium Level 142 mmol/L (136-145)
[2021-05-07 13:43] LABS: Blood Morphology Comment NOT SEEN (NOT SEEN); Platelet Estimate ADEQ; White Blood Cell Scan OK (OK)
[2021-05-07] MEDS ORDERED: INFLUENZA VACCINE (for 6+ mo) 0.5 ML DOSE IMVAC ONE (17:00)
[2021-05-07] MEDS: PANTOPRAZOLE 40 MG INJ IVP SCH (21:59)
[2021-05-07] MEDS: CEFTRIAXONE 1000 MG/VIAL ONE ×2 (23:38→23:48)
[2021-05-08] MEDS: MORPHINE 2 MG/ML SYR IV PRN ×2 (04:00→22:03)
[2021-05-08 04:20] LABS: Absolute Lymphocytes (CBC) 0.8 K/uL (0.7-4.9); Basophils % 0.3 % (0-1.3); Hematocrit 34.7 % (39.6-49.0); Lymphocytes % 8.7 % (15.3-44.8); MPV 7.1 fL (7.6-11.3); RBC Red Blood Cell Count 4.13 M/uL (4.33-5.43)
[2021-05-08 04:57] LABS: ALT/SGPT 42 U/L (12-78); AST/SGOT 66 U/L (15-37); Albumin 1.9 g/dL (3.4-5.0); Alkaline Phosphatase 193 U/L (45-117); BUN Blood Urea Nitrogen 43 mg/dL (7-18); Bicarbonate 23 mmol/L (21-32); Bilirubin Total 0.7 mg/dL (0.2-1.0); Glucose Level 109 mg/dL (74-106); HDL Cholesterol 22 mg/dL (40-60); LDL Cholesterol, Calculated 64 (<130); Magnesium 2.6 mg/dL (1.8-2.4); Phosphorus 2.3 mg/dL (2.5-4.9); Potassium 4.6 mmol/L (3.5-5.1); Protein, Total 5.9 g/dL (6.4-8.2); Sodium Level 144 mmol/L (136-145); Thyroid Stimulating Hormone 0.901 uIU/mL (0.360-3.740)
--- NOTE | 2021-05-08 06:08 | P.PN ---
Date of Service: 05/08/21 Subjective: Abdominal pain is mostly resolved Continues with some nausea and burning substernal/epigastric pain after swallowing/eating but this has improved as well No new complaints ROS: 10 point ROS as noted above, otherwise negative Physical exam GEN: Alert, oriented, NAD HEENT: Normal conjunctiva, sclera anicteric CV: Regular rate and rhythm, 1+ edema up to mid tibia bilaterally Pulm: Nonlabored respiration on room air ABD: Soft, hepatomegaly, mild epigastric tenderness MSK: No joint tenderness Integumentary: No rashes Neuro: Normal speech, normal affect Problem List Pain with swallowing, esophagitis versus gastritis/ulcer Stage IV liver cancer Hypertension Hyperlipidemia UTI Continue antibiotics, follow-up urine culture Continue Carafate, continue Protonix. Patient with improvement Okay to advance to full liquids Speech and dietitian consulted Suspect esophagitis/gastritis, no oral candidiasis seen, cannot rule out esophageal. Our patient is improving with Protonix and Carafate Will evaluate patient's p.o. intake today Will not have GI for few days, if shows further improvement/can take some adequate p.o., plan to discharge home, and can follow-up with Dr. Perez in his office - confirmed can be seen this week Will call Dr. Perez's office prior to discharge for appointment Discussed with patient's oncologist, in agreement with plan. To hold off on chemotherapy until evaluated by GI Time Spent Managing Pts Care (In Minutes): 35
[2021-05-08] MEDS: SUCRALFATE 1GM/10ML UCUP FT SCH ×4 (08:06→22:02)
[2021-05-08] MEDS ORDERED: POTASSIUM PHOS IN 0.9 % NACL 15 MMOL/250 ML BAG IV ONE (09:00)
[2021-05-08] MEDS ORDERED: CEFTRIAXONE 1000 MG/VIAL ONE (10:08)
[2021-05-08] MEDS: CEFTRIAXONE 1,000 MG in NA CHLORIDE 0.9% 50 ML IVPB SCH ×3 (10:25)
[2021-05-08] MEDS: PANTOPRAZOLE 40 MG INJ IVP SCH ×2 (10:26→22:02)
--- NOTE | 2021-05-08 12:27 | RAD REPORT ---
EXAM DESCRIPTION: Head Brain Wo Cont 05/07/2021 12:14 AM PROFESSIONAL DEVELOPMENT DIRECTOR CLINICAL HISTORY: 66 years, Male, MENTAL STATUS CHANGE COMPARISON: None. FINDINGS: Multiple transaxial tomograms of the brain were obtained from the base of the skull to the vertex without contrast. 2-D multiplanar reformats and the coronal and sagittal plane were performed and reviewed. This exam was performed according to our departmental dose-optimization protocol, which includes auto mated exposure control, adjustment of the mA and/or kV according to patient size and/or use of iterat elsa reconstruction technique. Brain parenchyma demonstrate mild prominence of the sulci and gyri are corresponding to mild brain at rophy. There is no midline shift and/or mass effect. There is no evidence for acute intracranial hemo rrhage. Lateral ventricles and cisterns displace normal appearance. No intra or extra axial fluid collections were seen. The calvarium is intact with no evidence for fracture. The visualized portion s of the paranasal sinuses and orbits demonstrate to be clear. IMPRESSION: MILD BRAIN ATROPHY. NO ACUTE INTRACRANIAL HEMORRHAGE. Electronically signed by: Anastacio Sepulveda MD 05/07/2021 12:15 AM PROFESSIONAL DEVELOPMENT DIRECTOR Due to temporary technical issues with the PACS/Fluency reporting system, reports are being signed by the in house radiologist without review as a courtesy to ensure prompt reporting. The interpreting r adiologist is fully responsible for the content of the report.
--- NOTE | 2021-05-08 12:35 | RAD REPORT ---
EXAM DESCRIPTION: Abdomen Pelvis W Contrast 05/07/2021 12:15 AM INTERNATIONAL PROJECT ENGINEER CLINICAL HISTORY: 66 years, Male, Abd pain;Abdominal distention COMPARISON: None. TECHNIQUE: Contrast-enhanced images of the abdomen and pelvis were performed utilizing 5 mm slice th ickness at 5 mm interval reconstruction from the lung bases to the ischial tuberosities after the adm inistration of 100 cc of Omnipaque 350 at the rate of 3.0 cc/sec. In addition multiplanar reformats in the coronal and sagittal plane were obtained and reviewed. This exam was performed according to our departmental dose-optimization protocol, which includes auto mated exposure control, adjustment of the mA and/or kV according to patient size and/or use of iterat elsa reconstruction technique. FINDINGS: The lung bases demonstrate presence of small trace of right pleural effusion with minimal compressive atelectatic changes. There is a pleural bases right lower lobe pulmonary nodule measuring 7 mm on image 1. The liver demonstrated presence of heterogeneous focal areas of hypodensities throughout the right an d left hepatic lobe measuring the along the posterior segment right hepatic lobe with the greatest bu lk measuring approximately 12.3 x 8.4 cm on image 21 2 suspicious for metastatic disease. There is tr jean of subcapsular hepatic fluid. The gallbladder, pancreas, spleen and adrenal glands demonstrate to be unremarkable, no focal lesions are noted. The kidneys demonstrate normal uptake of contrast media. No evidence for nephrolithiasis and/or hydro nephrosis. Grossly the unopacified stomach, small bowel and large bowel demonstrate to be within normal limits. There is no evidence for bowel dilatation/or free air. There is suboptimal distention of the large bowel with no definitive significant large apple core lesions. The appendix is normal. The urinary bladder demonstrate the presence of a Reyes catheter. The prostate gland is slightly pr ominent. The aorta demonstrate atherosclerotic disease. There is a prominent left the high periaort ic lymph node measuring 1.1 cm on image 28. There is small amount of ascites within the pelvis. The bone windows demonstrated presence of several lytic lesions throughout the visualized axial skele ton with the largest one at the level of the L2 vertebral body measuring approximately 1.7 cm on sagi ttal image 74. Lytic lesions within the right and left iliac bone, largest one posterior aspect measu ring 1.2 cm on image 61/93. IMPRESSION: Multiple heterogeneous focal areas of hypodensities throughout the right and left hepati c lobe with the greatest bulk measuring approximately 12.3 x 8.4 cm suspicious for metastatic disease . Multiple lytic lesions throughout the visualized axial skeleton with the largest one at the level of the L2 vertebral body measuring approximately 1.7 cm. 7 mm pleural-based right lower lobe pulmonary nodule perhaps corresponding to metastatic disease. Rec ommend a non-contrast Chest CT at 6-12 months. If patient is high risk for malignancy, recommend an a dditional non-contrast Chest CT at 18-24 months; if patient is low risk for malignancy a non-contrast Chest CT at 18-24 months is optional. These guidelines do not apply to immunocompromised patients and patients with cancer. Follow up in pa tients with significant comorbidities as clinically warranted. For lung cancer screening, adhere to L [place]-RADS guidelines. Reference: Radiology. 2017; 284(1):228-43. Small amount of ascites within the pelvis. Small trace of right pleural effusion with minimal compressive atelectatic changes. Electronically signed by: Anastacio Sepulveda MD 05/07/2021 12:23 AM INTERNATIONAL PROJECT ENGINEER Due to temporary technical issues with the PACS/Fluency reporting system, reports are being signed by the in house radiologist without review as a courtesy to ensure prompt reporting. The interpreting r adiologist is fully responsible for the content of the report.
[2021-05-08] MEDS: D5 0.45 NS 1,000 ML IV SCH ×2 (12:40→15:17)
[2021-05-08] MEDS: HYDROCODONE/APAP 10/325 TAB PO PRN ×2 (15:17→22:03)
[2021-05-09] MEDS: D5 0.45 NS 1,000 ML IV SCH (02:17)
[2021-05-09 05:42] LABS: Absolute Lymphocytes (CBC) 0.9 K/uL (0.7-4.9); Basophils % 0.3 % (0-1.3); Hematocrit 34.1 % (39.6-49.0); Lymphocytes % 9.4 % (15.3-44.8); MPV 7.1 fL (7.6-11.3); RBC Red Blood Cell Count 4.08 M/uL (4.33-5.43)
[2021-05-09 05:57] LABS: ALT/SGPT 35 U/L (12-78); AST/SGOT 66 U/L (15-37); Albumin 1.8 g/dL (3.4-5.0); Alkaline Phosphatase 218 U/L (45-117); BUN Blood Urea Nitrogen 30 mg/dL (7-18); Bicarbonate 23 mmol/L (21-32); Bilirubin Direct 0.4 mg/dL (0-0.2); Bilirubin Total 0.7 mg/dL (0.2-1.0); Glucose Level 99 mg/dL (74-106); Phosphorus 2.4 mg/dL (2.5-4.9); Potassium 4.2 mmol/L (3.5-5.1); Protein, Total 5.8 g/dL (6.4-8.2); Sodium Level 141 mmol/L (136-145)
--- NOTE | 2021-05-09 08:22 | ECHO ---
HEIGHT: 5 ft 4 in WEIGHT: 152 lb 3.2 oz DATE OF STUDY: 05/08/[address]: Brandon Wagn 2-DIMENSIONAL: YES M.MODE: YES DOPPLER: YES COLOR FLOW: YES TDS: NO PORTABLE: NO DEFINITY: NO BUBBLE STUDY: NO DIAGNOSIS: VOLUME OVERLOAD CARDIAC HISTORY: CATHERIZATION: SURGERY: PROSTHETIC VALVE: PACEMAKER: MEASUREMENTS (cm) DIASTOLIC (NORMALS) SYSTOLIC (NORMALS) IVSd 1.0 (0.6-1.2) LA Diam 3.3 (1.9-4.0) LVEF 59% LVIDd 4.5 (3.5-5.7) LVIDs 3.1 (2.0-3.5) %FS 31% LVPWd 0.9 (0.6-1.2) Ao Diam 2.9 (2.0-3.7) 2 DIMENSIONAL ASSESSMENT: RIGHT ATRIUM: NORMAL LEFT ATRIUM: NORMAL RIGHT VENTRICLE: NORMAL LEFT VENTRICLE: NORMAL TRICUSPID VALVE: NORMAL MITRAL VALVE: NORMAL PULMONIC VALVE: NORMAL AORTIC VALVE: NORMAL PERICARDIAL EFFUSION: NONE AORTIC ROOT: NORMAL LEFT VENTRICULAR WALL MOTION: NORMAL DOPPLER/COLOR FLOW: NORMAL COMMENTS: NORMAL 2D ECHOCARDIOGRAM WITH DOPPLER. NO WALL MOTION ABNORMALITY. NO EFFUSION. TECHNOLOGIST: Marlen HEMPHILL
[2021-05-09] MEDS: HYDROCODONE/APAP 10/325 TAB PO PRN (08:48)
[2021-05-09] MEDS: SUCRALFATE 1GM/10ML UCUP FT SCH ×2 (08:48→12:09)
[2021-05-09] MEDS: PANTOPRAZOLE 40 MG INJ IVP SCH (08:48)
[2021-05-09] MEDS ORDERED: POTASSIUM PHOS IN 0.9 % NACL 15 MMOL/250 ML BAG IV ONE (09:00)
[2021-05-09] MEDS ORDERED: NA CHLORIDE 0.9% 100 ML ONE (11:23)
[2021-05-09] MEDS ORDERED: CEFTRIAXONE 1000 MG/VIAL ONE (11:23)
[2021-05-09] MEDS: CEFTRIAXONE 1,000 MG in NA CHLORIDE 0.9% 50 ML IVPB SCH (12:09)
[2021-05-09] MEDS ORDERED: NA CHLORIDE 0.9% 50 ML ONE (12:10)
--- NOTE | 2021-05-09 12:18 | P.DS ---
Admission Date: 05/07/21 Discharge Date: 05/09/21 Primary Care Provider: Kiara Disposition: ROUTINE DISCHARGE Discharge Condition: FAIR Reason for Admission: UTI, AMS, inability to swallow - Problems (1) Metabolic encephalopathy Current Visit: Yes Status: Acute (2) Esophagitis Current Visit: Yes Status: Acute (3) Thrombocytopenia Current Visit: Yes Status: Acute (4) Difficulty swallowing Current Visit: Yes Status: Acute Qualifiers: Dysphagia type: unspecified Qualified Code(s): R13.10 - Dysphagia, unspecified (5) HLD (hyperlipidemia) Current Visit: Yes Status: Chronic Qualifiers: Hyperlipidemia type: unspecified Qualified Code(s): E78.5 - Hyperlipidemia, unspecified (6) HTN (hypertension) Current Visit: Yes Status: Chronic Qualifiers: Hypertension type: primary hypertension Qualified Code(s): I10 - Essential (primary) hypertension (7) Liver cancer Current Visit: Yes Status: Chronic Qualifiers: Liver malignancy type: unspecified liver malignancy Qualified Code(s): C22.9 - Malignant neoplasm of liver, not specified as primary or secondary Brief History of Present Illness: Mr. Alcantara is a 66 yo M with stage IV liver adenocarcinoma, CHF, HLD, HTN who presents with 4 days of 8/10 abdominal pain and back pain. He also reported nausea and vomiting. He was seen at [facility] and discharged on levofloxacin for a UTI. He returns to hospital for intermittent confusion. He was oriented to person and place, but not today's date. Family also reported he has had diffic ulty swallowing pills and fluids. They called his oncologist and she told him to report to the ED. He began chemo last Saturday. He has been wearing an eye patch due to blurry vision as a side effect of the chemo. WBC 14.3 BNP 3851 procal 1.62. Patient hospitalized for further management. Hospital Course: Patient symptoms suspected to related to esophagitis/GERD given that he is receiving chemotherapy. He was treated with IV Protonix and Carafate. His symptoms responded to treatment and patient was able to tolerate full liquid diet and able to swallow his pills. Dr. Francois supervisor fabrication contacted for endoscopy to determine cause of patient's symptoms-differential diagnosis include viral esophagitis, esophageal candidiasis or erosions/inflammation as a result of chemo. Patient to see Dr. Francois within the next couple of days. He is discharged with Carafate and Protonix to continue treatment for esophagitis. Vital Signs/Physical Exam: Temp Pulse Resp BP Pulse Ox 97 F 84 18 134/80 96 05/09/21 04:00 05/09/21 04:00 05/09/21 09:48 05/09/21 04:00 05/09/21 09:48 General: Alert, In no apparent distress, Oriented x3 HEENT: Normocephalic, Mucous membr. moist/pink Neck: JVD not distended Respiratory: Clear to auscultation bilaterally, Normal air movement Cardiovascular: No edema, Regular rate/rhythm, Normal S1 S2 Capillary refill: <2 Seconds Gastrointestinal: Normal bowel sounds, Soft and benign, Non-distended, No tenderness Musculoskeletal: No swelling Integumentary: No rashes Neurological: Normal strength at 5/5 x4 extr Laboratory Data at Discharge: WBC 9.90 K/uL (4.3-10.9) 05/09/21 05:20 Hgb 11.1 g/dL (13.6-17.9) L 05/09/21 05:20 Hct 34.1 % (39.6-49.0) L 05/09/21 05:20 Plt Count 53 K/uL (152-406) L D 05/09/21 05:20 PT 16.0 SECONDS (9.5-12.5) H 05/06/21 22:39 INR 1.39 05/06/21 22:39 APTT 27.1 SECONDS (24.3-36.9) 05/06/21 22:39 Sodium 141 mmol/L (136-145) 05/09/21 05:20 Potassium 4.2 mmol/L (3.5-5.1) 05/09/21 05:20 BUN 30 mg/dL (7-18) H 05/09/21 05:20 Creatinine 0.70 mg/dL (0.55-1.3) 05/09/21 05:20 Glucose 99 mg/dL (74-106) 05/09/21 05:20 Phosphorus 2.4 mg/dL (2.5-4.9) L 05/09/21 05:20 Magnesium 2.6 mg/dL (1.8-2.4) H 05/08/21 03:48 Total Bilirubin 0.7 mg/dL (0.2-1.0) 05/09/21 05:20 AST 66 U/L (15-37) H 05/09/21 05:20 ALT 35 U/L (12-78) 05/09/21 05:20 Alkaline Phosphatase 218 U/L (45-117) H 05/09/21 05:20 Triglycerides 138 mg/dL (<150) 05/08/21 03:48 Cholesterol 114 mg/dL (<200) 05/08/21 03:48 HDL Cholesterol 22 mg/dL (40-60) L 05/08/21 03:48 Cholesterol/HDL Ratio 5.18 05/08/21 03:48 Lipase 61 U/L (73-393) L 05/07/21 12:46 Home Medications: Hydrocodone Bit/Acetaminophen [Barling 10-325 Tablet] 1 each PO Q6HP PRN 05/07/21 Tizanidine [Zanaflex*] 4 mg PO DAILY 05/07/21 dexAMETHasone [Dexamethasone] 4 mg PO DAILY 05/07/21 Pantoprazole [Protonix Tab] 40 mg PO Q12H #60 tab 05/09/21 Sucralfate [Carafate*] 10 ml PO ACHS #420 ml 05/09/21 New Medications: Sucralfate [Carafate*] 10 ml PO ACHS #420 ml Pantoprazole [Protonix Tab] 40 mg PO Q12H #60 tab Diet: Soft diet Activity: Ad delfino Followup: Sheng Francois MD [ACTIVE - CAN ADMIT] - 1 Week Duong Laureano RN [Primary Care Provider] - Physician Review: Patient Assessed, Agree with Above Assessment and Plan Time spent managing pt's care (in minutes): 33
[2021-05-09 13:47] VITALS: BP 132/62; TEMP 97.7
[2021-05-09 21:41] VITALS: O2SAT 96
== END 2021-05-09 15:51 | disposition home or self-care (01) | DRG 391 ==
LOC: ER 21:10 → ERHOLD 05-07 01:18 → 2ND 05-07 01:37
PROVIDERS: ADMIT Hospitalist; ATTEND Internal Medicine
DX: K21.00 Gastro-esophageal reflux disease with esophagitis, without bleeding (principal); G93.41 Metabolic encephalopathy; N39.0 Urinary tract infection, site not specified; C22.9 Malignant neoplasm of liver, not specified as primary or secondary; E78.5 Hyperlipidemia, unspecified; D69.6 Thrombocytopenia, unspecified; I11.0 Hypertensive heart disease with heart failure; I50.9 Heart failure, unspecified; F17.200 Nicotine dependence, unspecified, uncomplicated; R31.9 Hematuria, unspecified; R13.10 Dysphagia, unspecified; Z90.49 Acquired absence of other specified parts of digestive tract; Z79.899 Other long term (current) drug therapy; Z85.05 Personal history of malignant neoplasm of liver; Z20.822 Contact with and (suspected) exposure to COVID-19
CPT/HCPCS: 36415; 51702; 70450; 71045; 74177; 80048; 80053; 80061; 80076; 81003; 81015; 82140; 83605; 83690; 83735; 83880; 84100; 84145; 84439; 84443; 84484; 85025; 85610; 85730; 86140; 87040; 87086; 87088; 92610; 93005; 93306; 94760; 99285; C9113; J2270; J2405; J3010; J7799; Q9967; U0003

== ENCOUNTER 2021-05-20 11:46 | Emergency (ER) | payer BC ==
--- OUTSIDE RECORDS SUMMARY | 2021-05-20 11:52 | XMS REPORT | Continuity of Care Document ---
:1955 Author Organization [facility] t Address [address] [place] [address] Support Name Relationship Address Phone Nahid Allen Spouse [address] [place] [address] L Bianca Relative [address] [place] [address] NAHID ALLEN X [address] [place] [address] Moy ALLEN Relative [address] [place] [place] [address] Care Team Providers Name Role Phone Brian Barahona MD Primary Care Physician TK Attending Clinician Unavailable Tk LESTER Attending Clinician Shameka SIMS Attending Clinician Unavailable Shameka Sims MD Attending Clinician Brian Barahona MD Attending Clinician Vaccine, Db Cbc Fam Attending Clinician Unavailable Chu LESTER Attending Clinician CHU Attending Clinician Unavailable Doctor Unassigned, Name Attending Clinician Unavailable Sammi Amador DO Attending Clinician BRIAN BARAHONA Attending Clinician Unavailable MAHESH Attending Clinician Unavailable MAHESH Attending Clinician Unavailable Lawrence VARGAS Attending Clinician Unavailable Shameka SIMS Admitting Clinician Unavailable Payers Payer Name Policy Type Policy Number Effective Date Expiration Date S avni [facility] [id number] 2009 00:00:00 Problems Condition Condition Condition Status [...] (BMI 0-10 ity of 30-39.9) 30-39.9) 00:00: [place] [facility] Fluid Fluid Disease Active 2019-06 Univers overload overload 0-09 ity of 00:00: [place] [facility] ANN-MARIE ANN-MARIE Disease Active Univers (obstructi (obstructi 4-15 it y of ve sleep ve sleep 00:00: [place] apnea) apnea) 00 [facility] HLD HLD Disease Active Univers (hyperlipi (hyperlipi 5-09 it y of demia) demia) 00:00: [facility] Ischemic Ischemic Disease Active Unive rs cardiomyop cardiomyop 3-07 it y of athy athy 00:00: [place] [facility] Essential Essential Disease Active 2014-06 Uni vers hypertensi hypertensi 0-27 it y of on on 00:00: [place] [facility] Allergies, Adverse Reactions, Alerts Allergy Allergy Status Severity Reaction(s) Onset Inactive Treating Comm ents Source Name Type Date Date Clinician NO KNOWN Drug Active Univers ALLERGIE Class ity of S [facility] Social History Social Habit Start Date Stop Date Quantity Comments Source History of tobacco Cigarette Smoker University of use [facility] Exposure to Not sure [place] of SARS-CoV-2 (event) [facility] Alcohol intake 2021-05-06 2021-05-06 0 /d University of 00:00:00 00:00:00 [facility] Tobacco Comment 2020-03-19 2020-03-19 1pk a day. Universit y of 00:00:00 00:00:00 [facility] Cigarettes smoked 2015-04-05 2015-04-05 Univers ity of current (pack per 00:00:00 00:00:00 ) - Reported Branch Cigarette 2015-04-05 2015-04-05 University of pack-years 00:00:00 00:00:00 [facility] Tobacco use and 2015-04-05 2015-04-05 Never used Universit y of exposure 00:00:00 00:00:00 [facility] Sex [birth year] Universit y of 00:00:00 00:00:00 [facility] Smoking Status Start Date Stop Date Source Current every day smoker 2015-04-05 00:00:00 Uni versity of [facility] Medications Ordered Filled Start Stop Current Ordering Indication Dosage Frequency Signature Comments Components Source Medication Medication Date Date Medication? Clinician (SIG) Name Name furosemide 2020-06 Yes [id number] 40mg Take 1 Univers 40 mg 2-10 tablet by ity of tablet 00:00: mouth [place] 00 daily. Medical Branch ondansetron 2020-06 No 4mg 4 mg, Slow Univers (ZOFRAN 07-06 IV Push, ity of (PF)) 10:30: 09:26 ONCE, 1 [place] injection 4 00 :00 dose, On Medi janell mg [facility] 05/06/21 at 0430, MARIE morpHINE 2020-06 No 4mg 4 mg, Slow Un monse injection 4 07-06 IV Push, ity of mg 10:30: 09:27 ONCE, 1 [place] 00 :00 dose, On Medical [facility] 05/06/21 at 0430, STAT ciprofloxac 2020-06 Yes 500mg 500 mg, Un monse in HCl 07-06 Oral, ity of (CIPRO) 10:00: Q12HA2, [place] tablet 500 00 First dose Med ical mg on [facility] 05/06/21 at 0400, Until Discontinu ed, MARIE
Re ason for Anti-Infec tive: Empiric Therapy for Suspected Infection< br>Empiric Therapy Site: Abdominal& lt;br>Dura tion of therapy: 72 hours NaCl 0.9% 2020-06 No 500mL at 999 Univ ers (NS) bolus 07-06 mL/hr, 500 it y of infusion 07:30: 08:59 mL, IV [place] 500 mL 00 :00 Infusion, Medical ONCE, 1 Branch dose, On [facility] 05/06/21 at 0130, STAT ondansetron 2020-06 No 4mg 4 mg, Slow Univers (ZOFRAN 07-06 IV Push, ity of (PF)) 07:30: 06:38 ONCE, 1 [place] injection 4 00 :00 dose, On Medi janell mg [facility] 05/06/21 at 0130, MARIE morpHINE 2020-06- No 4mg 4 mg, Slow Un monse injection 4 07-06 IV Push, ity of mg 07:30: 06:38 ONCE, 1 [place] 00 :00 dose, On Medical Sat Branch 05/06/21 at 0130, STAT iohexol 2020-06- No [id number] 120mL 120 mL, Univers (OMNIPAQUE 07-06 Intravenou it y of 350 07:15: 07:06 s, ONCE, 1 [place] BULK-100 00 :00 dose, On Medical mL) Sat Branch injection 05/06/21 120 mL at 0115, Routine ciprofloxac 2020-06 Yes [id number] 500mg Take 1 Univers in HCl 500 -27 tablet by ity of mg tablet 00:00: mouth 2 [place] 00 (two) Medical times Branch daily. ondansetron 2020-06 Yes [id number] 4mg Take 1 Univers (ZOFRAN) 4 -27 tablet by ity of mg tablet 00:00: mouth [place] 00 every 8 Medical (eight) Branch hours as needed for Nausea and Vomiting (N/V). ciprofloxac 2020-06 Yes [id number] 500mg Take 1 Univers in HCl 500 -27 tablet by ity of mg tablet 00:00: mouth 2 [place] 00 (two) Medical times Branch daily. ondansetron 2020-06 Yes [id number] 4mg Take 1 Univers (ZOFRAN) 4 -27 tablet by ity of mg tablet 00:00: mouth [place] 00 every 8 Medical (eight) Branch hours as needed for Nausea and Vomiting (N/V). iopamidol 2020-06- No [id number] 120mL 120 mL, Univers (ISOVUE 0-13 10- Intravenou ity o f 300-500 mL) 04:30: 04:30 s, ONCE, 1 [place] injection 00 :00 dose, On Medica l 120 mL e Branch 03/21/21 at 2330, Routine acetaminoph 2020-06- No 650mg 650 mg, U nivers en 0-13 10-13 Oral, ity of (TYLENOL) 03:15: 02:40 ONCE, 1 [place] tablet 650 00 :00 dose, On Medic al mg e 03/21/21 at 2215, MARIE FENTanyl PF 2020-06- No 50ug 50 mcg, Un monse (SUBLIMAZE 0- Slow IV ity o f (PF)) 03:15: 02:40 Push, [place] injection 00 :00 ONCE, 1 Medical 50 mcg dose, On Branch Sat03/21/21 at 2215, Routine NaCl 0.9% 2020-06- No 1000mL at 999 Uni vers (NS) bolus 0-13 10-13 mL/hr, ity of infusion 03:15: 04:37 1,000 mL, Rubén as 1,000 mL 00 :00 IV Medical Infusion, Branch ONCE, 1 dose, On Sat03/21/21 at 2215, MARIE Regadenoson 2020-06- No [id number] .4mg 0.4 mg, IV Univers (LEXISCAN) 0- Push, ity of injection 15:00: 14:55 ONCE, 1 [place] 0.4 mg 00 :00 dose, On Sat03/15/21 at 1000, Routine
member of technical staff approving Restricted medication : DAVID PHILLIPS tc 2020-06- No [id number] 43.2mCi 43.2 Unive rs 99m-tetrofo 0-03-15 millicurie i ty of smin 15:00: 14:55 , [place] (MYOVIEW) 00 :00 Intravenou Medi janell injection s, ONCE, 1 Bran ch 43.2 [facility], Routine tc 2020-06- No [id number] 15.2mCi 15.2 Unive rs 99m-tetrofo 0-11 17- millicurie i ty of smin 13:30: 13:19 , [place] (MYOVIEW) 00 :00 Intravenou Medi janell injection s, ONCE, 1 Bran ch 15.2 dose, On sat03/15/21 at 0830, Routine aspirin 2020-06- No 324mg 324 mg, Unive rs chewable 0-03-11 Oral, ity of tablet 324 15:00: 14:06 ONCE, 1 [place] as mg 00 :00 dose, On [facility] 03/11/21 at 1000, Routine ketorolac 2020-06- No 30mg 30 mg, Unive rs (TORADOL) 0-02 03-11 Slow IV ity of injection 15:00: 14:06 Push, [place] 30 mg 00 :00 ONCE, 1 Medical dose, On Branch 03/11/21 at 1000, [facility] : KAELA AMADOR acetaminoph Yes 4647 1{tbl} Take 1 Un monse en-codeine 9-29 tablet by ity of 300-30 mg 00:00: mouth [place] tablet 00 every 4 Medical (four) Branch hours as needed for Pain (scale 4-6). Indication s: acute pain acetaminoph Yes 4647 1{tbl} Take 1 Un monse en-codeine 9-29 tablet by ity of 300-30 mg 00:00: mouth [place] tablet 00 every 4 Medical (four) Branch hours as needed for Pain (scale 4-6). Indication s: acute pain acetaminoph Yes 4647 1{tbl} Take 1 Un monse en-codeine 9-29 tablet by ity of 300-30 mg 00:00: mouth [place] tablet 00 every 4 Medical (four) Branch hours as needed for Pain (scale 4-6). Indication s: acute pain acetaminoph 0 Yes 4647 1{tbl} Take 1 Un monse en-codeine 9-29 tablet by ity of 300-30 mg 00:00: mouth [place] tablet 00 every 4 Medical (four) Branch hours as needed for Pain (scale 4-6). Indication s: acute pain acetaminoph Yes 4647 1{tbl} Take 1 Un monse en-codeine 9-29 tablet by ity of 300-30 mg 00:00: mouth [place] tablet 00 every 4 Medical (four) Branch hours as needed for Pain (scale 4-6). Indication s: acute pain acetaminoph 0 Yes 4647 1{tbl} Take 1 Un monse [...] (scale 4-6). Indication s: acute pain etodolac 2021-0 Yes [id number] 400mg Take 1 U nivers (LODINE) 8-31 tablet by ity of 400 mg 00:00: mouth 2 [place] tablet 00 (two) Medical times Branch daily. etodolac 2021-0 Yes [id number] 400mg Take 1 U nivers (LODINE) 8-31 tablet by ity of 400 mg 00:00: mouth 2 [place] tablet 00 (two) Medical times Branch daily. etodolac 2021-0 Yes [id number] 400mg Take 1 U nivers (LODINE) 8-31 tablet by ity of 400 mg 00:00: mouth 2 [place] tablet 00 (two) Medical times Branch daily. etodolac 0 Yes [id number] 400mg Take 1 U nivers (LODINE) 8-31 tablet by ity of 400 mg 00:00: mouth 2 [place] tablet 00 (two) Medical times Branch daily. etodolac 0 Yes [id number] 400mg Take 1 U nivers (LODINE) 8-31 tablet by ity of 400 mg 00:00: mouth 2 [place] tablet 00 (two) Medical times Branch daily. etodolac 0 Yes [id number] 400mg Take 1 U nivers (LODINE) 8-31 tablet by ity of 400 mg 00:00: mouth 2 [place] tablet 00 (two) Medical times Branch daily. etodolac Yes [id number] 400mg Take 1 U nivers (LODINE) 8-31 tablet by ity of 400 mg 00:00: mouth 2 [place] tablet 00 (two) Medical times Branch daily. etodolac 0 Yes [id number] 400mg Take 1 U nivers (LODINE) 8-31 tablet by ity of 400 mg 00:00: mouth 2 [place] tablet 00 (two) Medical times Branch daily. etodolac 0 Yes [id number] 400mg Take 1 U nivers (LODINE) 8-31 tablet by ity of 400 mg 00:00: mouth 2 [place] tablet 00 (two) Medical times Branch daily. etodolac 0 Yes [id number] 400mg Take 1 U nivers (LODINE) 8-31 tablet by ity of 400 mg 00:00: mouth 2 [place] tablet 00 (two) Medical times Branch daily. etodolac 0 Yes [id number] 400mg Take 1 U nivers (LODINE) 8-31 tablet by ity of 400 mg 00:00: mouth 2 [place] tablet 00 (two) Medical times Branch daily. etodolac 0 Yes [id number] 400mg Take 1 U nivers (LODINE) 8-31 tablet by ity of 400 mg 00:00: mouth 2 [place] tablet 00 (two) Medical times Branch daily. etodolac Yes [id number] 400mg Take 1 U nivers (LODINE) 8-31 tablet by ity of 400 mg 00:00: mouth 2 [place] tablet 00 (two) Medical times Branch daily. etodolac 0 Yes [id number] 400mg Take 1 U nivers (LODINE) 8-31 tablet by ity of 400 mg 00:00: mouth 2 [place] tablet 00 (two) Medical times Branch daily. etodolac 0 Yes [id number] 400mg Take 1 U nivers (LODINE) 8-31 tablet by ity of 400 mg 00:00: mouth 2 [place] tablet 00 (two) Medical times Branch daily. etodolac Yes [id number] 400mg Take 1 U nivers (LODINE) 8-31 tablet by ity of 400 mg 00:00: mouth 2 [place] tablet 00 (two) Medical times Branch daily. etodolac Yes [id number] 400mg Take 1 U nivers (LODINE) 8-31 tablet by ity of 400 mg 00:00: mouth 2 [place] tablet 00 (two) Medical times Branch daily. etodolac Yes [id number] 400mg Take 1 U nivers (LODINE) 8-31 tablet by ity of 400 mg 00:00: mouth 2 [place] tablet 00 (two) Medical times Branch daily. etodolac Yes [id number] 400mg Take 1 U nivers (LODINE) 8-31 tablet by ity of 400 mg 00:00: mouth 2 [place] tablet 00 (two) Medical times Branch daily. etodolac Yes [id number] 400mg Take 1 U nivers (LODINE) 8-31 tablet by ity of 400 mg 00:00: mouth 2 [place] tablet 00 (two) Medical times Branch daily. atorvastati Yes [id number] 80mg Take 1 Univers n 80 mg 8-16 tablet by ity of tablet 00:00: mouth [place] 00 daily. Medical Branch atorvastati Yes [id number] 80mg Take 1 Univers n 80 mg 8-16 tablet by ity of tablet 00:00: mouth [place] 00 daily. Medical Branch atorvastati 2021-0 Yes [id number] 80mg Take 1 Univers n 80 mg 8-16 tablet by ity of tablet 00:00: mouth [place] 00 daily. Medical Branch atorvasta 2020-0 Yes [id number] 80mg Take 1 Univers n 80 mg 8-16 tablet by ity of tablet 00:00: mouth [place] 00 daily. Medical Branch atorvasta 2020-0 Yes [id number] 80mg Take 1 Univers n 80 mg 8-16 tablet by ity of tablet 00:00: mouth [place] 00 daily. Medical Branch atorvasta 2020-0 Yes [id number] 80mg Take 1 Univers n 80 mg 8-16 tablet by ity of tablet 00:00: mouth [place] 00 daily. Medical Branch atorvasta 0 Yes [id number] 80mg Take 1 Univers n 80 mg 8-16 tablet by ity of tablet 00:00: mouth [place] 00 daily. Medical Branch atorvasta 0 Yes [id number] 80mg Take 1 Univers n 80 mg 8-16 tablet by ity of tablet 00:00: mouth [place] 00 daily. Medical Branch atorvasta Yes [id number] 80mg Take 1 Univers n 80 mg 8-16 tablet by ity of tablet 00:00: mouth [place] 00 daily. Medical Branch atorvasta 0 Yes [id number] 80mg Take 1 Univers n 80 mg 8-16 tablet by ity of tablet 00:00: mouth [place] 00 daily. Medical Branch atorvastati 0 Yes [id number] 80mg Take 1 Univers n 80 mg 8-16 tablet by ity of tablet 00:00: mouth [place] 00 daily. Medical Branch atorvasta 0 Yes [id number] 80mg Take 1 Univers n 80 mg 8-16 tablet by ity of tablet 00:00: mouth [place] 00 daily. Medical Branch atorvasta 0 Yes [id number] 80mg Take 1 Univers n 80 mg 8-16 tablet by ity of tablet 00:00: mouth [place] 00 daily. Medical Branch atorvastati 0 Yes [id number] 80mg Take 1 Univers n 80 mg 8-16 tablet by ity of tablet 00:00: mouth [place] 00 daily. Medical Branch atorvasta 0 Yes [id number] 80mg Take 1 Univers n 80 mg 8-16 tablet by ity of tablet 00:00: mouth [place] 00 daily. Medical Branch atorvastati 2020-0 Yes [id number] 80mg Take 1 Univers n 80 mg 8-16 tablet by ity of tablet 00:00: mouth [place] 00 daily. Medical Branch atorvastati 2020-0 Yes [id number] 80mg Take 1 Univers n 80 mg 8-16 tablet by ity of tablet 00:00: mouth [place] 00 daily. Medical Branch atorvastati 2020-0 Yes [id number] 80mg Take 1 Univers n 80 mg 8-16 tablet by ity of tablet 00:00: mouth [place] 00 daily. Medical Branch atorvastati 2020-0 Yes [id number] 80mg Take 1 Univers n 80 mg 8-16 tablet by ity of tablet 00:00: mouth [place] 00 daily. Medical Branch atorvastati 0 Yes [id number] 80mg Take 1 Univers n 80 mg 8-16 tablet by ity of tablet 00:00: mouth [place] 00 daily. Medical Branch nitroglycer Yes [id number] .4mg Place 1 Univers in 01-10 tablet ity of (NITROSTAT) 00:00: under the [place] 0.4 mg 00 tongue Medical sublingual every 5 Branc h tablet (five) minutes as needed for Chest pain. nitroglycer Yes [id number] .4mg Place 1 Univers in 01-10 tablet ity of (NITROSTAT) 00:00: under the [place] 0.4 mg 00 tongue Medical sublingual every 5 Branc h tablet (five) minutes as needed for Chest pain. nitroglycer [id number] 1 Univers in 01-10 tablet ity of (NITROSTAT) 00:00: under the [place] 0.4 mg 00 tongue Medical sublingual every 5 Branc h tablet (five) minutes as needed for Chest pain. nitroglycer [id number] 1 Univers in 01-10 tablet ity of (NITROSTAT) 00:00: under the [place] 0.4 mg 00 tongue Medical sublingual every 5 Branc h tablet (five) minutes as needed for Chest pain. nitroglycer [id number] 1 Univers in 03 tablet ity of (NITROSTAT) 00:00: under the [place] 0.4 mg 00 tongue Medical sublingual every 5 Branc h tablet (five) minutes as needed for Chest pain. nitroglycer 2021-[id number] 1 Univers in 01-10 tablet ity of (NITROSTAT) 00:00: under the [place] 0.4 mg 00 tongue Medical sublingual every 5 Branc h tablet (five) minutes as needed for Chest pain. nitroglycer 2021-[id number] 1 Univers in 01-10 tablet ity of (NITROSTAT) 00:00: under the [place] 0.4 mg 00 tongue Medical sublingual every 5 Branc h tablet (five) minutes as needed for Chest pain. nitroglycer 2021-[id number] 1 Univers in 01-10 tablet ity of (NITROSTAT) 00:00: under the [place] 0.4 mg 00 tongue Medical sublingual every 5 Branc h tablet (five) minutes as needed for Chest pain. nitroglycer 2021-[id number] 1 Univers in 01-10 tablet ity of (NITROSTAT) 00:00: under the [place] 0.4 mg 00 tongue Medical sublingual every 5 Branc h tablet (five) minutes as needed for Chest pain. nitroglycer 2021-[id number] 1 Univers in 01-10 tablet ity of (NITROSTAT) 00:00: under the [place] 0.4 mg 00 tongue Medical sublingual every 5 Branc h tablet (five) minutes as needed for Chest pain. nitroglycer 2021-[id number] 1 Univers in 01-10 tablet ity of (NITROSTAT) 00:00: under the [place] 0.4 mg 00 tongue Medical sublingual every 5 Branc h tablet (five) minutes as needed for Chest pain. nitroglycer 2021-[id number] 1 Univers in 01-10 tablet ity of (NITROSTAT) 00:00: under the [place] 0.4 mg 00 tongue Medical sublingual every 5 Branc h tablet (five) minutes as needed for Chest pain. nitroglycer 2021-[id number] 1 Univers in 01-10 tablet ity of (NITROSTAT) 00:00: under the [place] 0.4 mg 00 tongue Medical sublingual every 5 Branc h tablet (five) minutes as needed for Chest pain. nitroglycer 2020-[id number] 1 Univers in 01-10 tablet ity of (NITROSTAT) 00:00: under the [place] 0.4 mg 00 tongue Medical sublingual every 5 Branc h tablet (five) minutes as needed for Chest pain. nitroglycer 2020-[id number] 1 Univers in 01-10 tablet ity of (NITROSTAT) 00:00: under the [place] 0.4 mg 00 tongue Medical sublingual every 5 Branc h tablet (five) minutes as needed for Chest pain. nitroglycer 2020-[id number] 1 Univers in 01-10 tablet ity of (NITROSTAT) 00:00: under the [place] 0.4 mg 00 tongue Medical sublingual every 5 Branc h tablet (five) minutes as needed for Chest pain. nitroglycer 2020-[id number] 1 Univers in 01-10 tablet ity of (NITROSTAT) 00:00: under the [place] 0.4 mg 00 tongue Medical sublingual every 5 Branc h tablet (five) minutes as needed for Chest pain. nitroglycer 2020-[id number] 1 Univers in 01-10 tablet ity of (NITROSTAT) 00:00: under the [place] 0.4 mg 00 tongue Medical sublingual every 5 Branc h tablet (five) minutes as needed for Chest pain. nitroglycer 2020-[id number] 1 Univers in 01-10 tablet ity of (NITROSTAT) 00:00: under the [place] 0.4 mg 00 tongue Medical sublingual every 5 Branc h tablet (five) minutes as needed for Chest pain. nitroglycer 2020-[id number] 1 Univers in 8- tablet ity of (NITROSTAT) 00:00: under the [place] 0.4 mg 00 tongue Medical sublingual every 5 Branc h tablet (five) minutes as needed for Chest pain. carvediloL 2020-0 Yes [id number] 25mg Take 1 U nivers 25 mg 2-03 tablet by ity of tablet 00:00: mouth 2 [place] 00 (two) Medical times Branch daily with meals. hydroCHLORO 2020-0 Yes [id number] 25mg Take 1 Univers thiazide 25 2-03 tablet by ity of mg tablet 00:00: mouth [place] 00 daily. Medical Branch losartan 2020-0 Yes [id number] 100mg Take 1 Un monse 100 mg 2-03 tablet by ity of tablet 00:00: mouth [place] 00 daily. Medical Branch carvediloL 2020-0 Yes [id number] 25mg Take 1 U nivers 25 mg 2-03 tablet by ity of tablet 00:00: mouth 2 [place] 00 (two) Medical times Branch daily with meals. hydroCHLORO 2020-0 Yes [id number] 25mg Take 1 Univers thiazide 25 2-03 tablet by ity of mg tablet 00:00: mouth [place] 00 daily. Medical Branch losartan 0 Yes [id number] 100mg Take 1 Un monse 100 mg 2-03 tablet by ity of tablet 00:00: mouth [place] 00 daily. Medical Branch carvediloL 0 Yes [id number] 25mg Take 1 U nivers 25 mg 2-03 tablet by ity of tablet 00:00: mouth 2 [place] 00 (two) Medical times Branch daily with meals. hydroCHLORO 2020-0 Yes [id number] 25mg Take 1 Univers thiazide 25 2-03 tablet by ity of mg tablet 00:00: mouth [place] 00 daily. Medical Branch losartan 0 Yes [id number] 100mg Take 1 Un monse 100 mg 2-03 tablet by ity of tablet 00:00: mouth [place] 00 daily. Medical Branch carvediloL 2020-0 Yes [id number] 25mg Take 1 U nivers 25 mg 2-03 tablet by ity of tablet 00:00: mouth 2 [place] 00 (two) Medical times Branch daily with meals. hydroCHLORO 2020-0 Yes [id number] 25mg Take 1 Univers thiazide 25 2-03 tablet by ity of mg tablet 00:00: mouth [place] 00 daily. Medical Branch losartan 2020-0 Yes [id number] 100mg Take 1 Un monse 100 mg 2-03 tablet by ity of tablet 00:00: mouth [place] 00 daily. Medical Branch carvediloL 2020-0 Yes [id number] 25mg Take 1 U nivers 25 mg 2-03 tablet by ity of tablet 00:00: mouth 2 [place] 00 (two) Medical times Branch daily with meals. hydroCHLORO 2020-0 Yes [id number] 25mg Take 1 Univers thiazide 25 2-03 tablet by ity of mg tablet 00:00: mouth [place] 00 daily. Medical Branch losartan 2020-0 Yes [id number] 100mg Take 1 Un monse 100 mg 2-03 tablet by ity of tablet 00:00: mouth [place] 00 daily. Medical Branch carvediloL 2020-0 Yes [id number] 25mg Take 1 U nivers 25 mg 2-03 tablet by ity of tablet 00:00: mouth 2 [place] 00 (two) Medical times Branch daily with meals. hydroCHLORO 2020-0 Yes [id number] 25mg Take 1 Univers thiazide 25 2-03 tablet by ity of mg tablet 00:00: mouth [place] 00 daily. Medical Branch losartan 0 Yes [id number] 100mg Take 1 Un monse 100 mg 2-03 tablet by ity of tablet 00:00: mouth [place] 00 daily. Medical Branch carvediloL 0 Yes [id number] 25mg Take 1 U nivers 25 mg 2-03 tablet by ity of tablet 00:00: mouth 2 [place] 00 (two) Medical times Branch daily with meals. hydroCHLORO 2020-0 Yes [id number] 25mg Take 1 Univers thiazide 25 2-03 tablet by ity of mg tablet 00:00: mouth [place] 00 daily. Medical Branch losartan 0 Yes [id number] 100mg Take 1 Un monse 100 mg 2-03 tablet by ity of tablet 00:00: mouth [place] 00 daily. Medical Branch carvediloL 2020-0 Yes [id number] 25mg Take 1 U nivers 25 mg 2-03 tablet by ity of tablet 00:00: mouth 2 [place] 00 (two) Medical times Branch daily with meals. hydroCHLORO 2020-0 Yes [id number] 25mg Take 1 Univers thiazide 25 2-03 tablet by ity of mg tablet 00:00: mouth [place] 00 daily. Medical Branch losartan 2020-0 Yes [id number] 100mg Take 1 Un monse 100 mg 2-03 tablet by ity of tablet 00:00: mouth [place] 00 daily. Medical Branch carvediloL 2020-0 Yes [id number] 25mg Take 1 U nivers 25 mg 2-03 tablet by ity of tablet 00:00: mouth 2 [place] 00 (two) Medical times Branch daily with meals. hydroCHLORO 2020-0 Yes [id number] 25mg Take 1 Univers thiazide 25 2-03 tablet by ity of mg tablet 00:00: mouth [place] 00 daily. Medical Branch losartan 2020-0 Yes [id number] 100mg Take 1 Un monse 100 mg 2-03 tablet by ity of tablet 00:00: mouth [place] 00 daily. Medical Branch carvediloL 2020-0 Yes [id number] 25mg Take 1 U nivers 25 mg 2-03 tablet by ity of tablet 00:00: mouth 2 [place] 00 (two) Medical times Branch daily with meals. hydroCHLORO 2020-0 Yes [id number] 25mg Take 1 Univers thiazide 25 2-03 tablet by ity of mg tablet 00:00: mouth [place] 00 daily. Medical Branch losartan 0 Yes [id number] 100mg Take 1 Un monse 100 mg 2-03 tablet by ity of tablet 00:00: mouth [place] 00 daily. Medical Branch carvediloL 0 Yes [id number] 25mg Take 1 U nivers 25 mg 2-03 tablet by ity of tablet 00:00: mouth 2 [place] 00 (two) Medical times Branch daily with meals. hydroCHLORO 2020-0 Yes [id number] 25mg Take 1 Univers thiazide 25 2-03 tablet by ity of mg tablet 00:00: mouth [place] 00 daily. Medical Branch losartan 0 Yes [id number] 100mg Take 1 Un monse 100 mg 2-03 tablet by ity of tablet 00:00: mouth [place] 00 daily. Medical Branch carvediloL 2020-0 Yes [id number] 25mg Take 1 U nivers 25 mg 2-03 tablet by ity of tablet 00:00: mouth 2 [place] 00 (two) Medical times Branch daily with meals. hydroCHLORO 2020-0 Yes [id number] 25mg Take 1 Univers thiazide 25 2-03 tablet by ity of mg tablet 00:00: mouth [place] 00 daily. Medical Branch losartan 2020-0 Yes [id number] 100mg Take 1 Un monse 100 mg 2-03 tablet by ity of tablet 00:00: mouth [place] 00 daily. Medical Branch carvediloL 2020-0 Yes [id number] 25mg Take 1 U nivers 25 mg 2-03 tablet by ity of tablet 00:00: mouth 2 [place] 00 (two) Medical times Branch daily with meals. hydroCHLORO 2020-0 Yes [id number] 25mg Take 1 Univers thiazide 25 2-03 tablet by ity of mg tablet 00:00: mouth [place] 00 daily. Medical Branch losartan 2020-0 Yes [id number] 100mg Take 1 Un monse 100 mg 2-03 tablet by ity of tablet 00:00: mouth [place] 00 daily. Medical Branch carvediloL 2020-0 Yes [id number] 25mg Take 1 U nivers 25 mg 2-03 tablet by ity of tablet 00:00: mouth 2 [place] 00 (two) Medical times Branch daily with meals. hydroCHLORO 2020-0 Yes [id number] 25mg Take 1 Univers thiazide 25 2-03 tablet by ity of mg tablet 00:00: mouth [place] 00 daily. Medical Branch losartan 0 Yes [id number] 100mg Take 1 Un monse 100 mg 2-03 tablet by ity of tablet 00:00: mouth [place] 00 daily. Medical Branch carvediloL 0 Yes [id number] 25mg Take 1 U nivers 25 mg 2-03 tablet by ity of tablet 00:00: mouth 2 [place] 00 (two) Medical times Branch daily with meals. hydroCHLORO 2020-0 Yes [id number] 25mg Take 1 Univers thiazide 25 2-03 tablet by ity of mg tablet 00:00: mouth [place] 00 daily. Medical Branch losartan 0 Yes [id number] 100mg Take 1 Un monse 100 mg 2-03 tablet by ity of tablet 00:00: mouth [place] 00 daily. Medical Branch carvediloL 2020-0 Yes [id number] 25mg Take 1 U nivers 25 mg 2-03 tablet by ity of tablet 00:00: mouth 2 [place] 00 (two) Medical times Branch daily with meals. hydroCHLORO 2020-0 Yes [id number] 25mg Take 1 Univers thiazide 25 2-03 tablet by ity of mg tablet 00:00: mouth [place] 00 daily. Medical Branch losartan 2020-0 Yes [id number] 100mg Take 1 Un monse 100 mg 2-03 tablet by ity of tablet 00:00: mouth [place] 00 daily. Medical Branch carvediloL 2020-0 Yes [id number] 25mg Take 1 U nivers 25 mg 2-03 tablet by ity of tablet 00:00: mouth 2 (two) Medical times Branch daily with meals. hydroCHLORO 0 Yes [id number] 25mg Take 1 Univers thiazide 25 2-03 tablet by ity of mg tablet 00:00: mouth 00 daily. Medical Branch losartan 0 Yes [id number] 100mg Take 1 Un monse 100 mg 2-03 tablet by ity of tablet 00:00: mouth 00 daily. Medical Branch carvediloL 0 Yes [id number] 25mg Take 1 U nivers 25 mg 2-03 tablet by ity of tablet 00:00: mouth 2 00 (two) Medical times Branch daily with meals. hydroCHLORO 0 Yes [id number] 25mg Take 1 Univers thiazide 25 2-03 tablet by ity of mg tablet 00:00: mouth 00 daily. Medical Branch losartan Yes [id number] 100mg Take 1 Un monse 100 mg 2-03 tablet by ity of tablet 00:00: mouth 00 daily. Medical Branch carvediloL Yes [id number] 25mg Take 1 U nivers 25 mg 2-03 tablet by ity of tablet 00:00: mouth 2 (two) Medical times Branch daily with meals. hydroCHLORO 0 Yes [id number] 25mg Take 1 Univers thiazide 25 2-03 tablet by ity of mg tablet 00:00: mouth 00 daily. Medical Branch losartan Yes [id number] 100mg Take 1 Un monse 100 mg 2-03 tablet by ity of tablet 00:00: mouth 00 daily. Medical Branch carvediloL 0 Yes [id number] 25mg Take 1 U nivers 25 mg 2-03 tablet by ity of tablet 00:00: mouth 2 00 (two) Medical times Branch daily with meals. hydroCHLORO 0 Yes [id number] 25mg Take 1 Univers thiazide 25 2-03 tablet by ity of mg tablet 00:00: mouth 00 daily. Medical Branch losartan 0 Yes [id number] 100mg Take 1 Un monse 100 mg 2-03 tablet by ity of tablet 00:00: mouth [place] 00 daily. Medical Branch aspirin 81 2016-0 Yes 81mg Take 1 Tab U nivers mg EC 2-08 by mouth ity of tablet 00:00: daily. [place] 00 Medical Branch aspirin 81 2016-0 Yes 81mg Take 1 Tab U nivers mg EC 2-08 by mouth ity of tablet 00:00: daily. [place] [facility] aspirin 81 2016-0 Yes 81mg Take 1 Tab U nivers mg EC 2-08 by mouth ity of tablet 00:00: daily. [place] [facility] Branch aspirin 81 2016-0 Yes 81mg Take 1 Tab U nivers mg EC 2-08 by mouth ity of tablet 00:00: daily. [place] [facility] Branch aspirin 81 2016-0 Yes 81mg Take 1 Tab U nivers mg EC 2-08 by mouth ity of tablet 00:00: daily. [place] [facility] Branch aspirin 81 2016-0 Yes 81mg Take 1 Tab U nivers mg EC 2-08 by mouth ity of tablet 00:00: daily. [place] [facility] Branch aspirin 81 2016-0 Yes 81mg Take 1 Tab U nivers mg EC 2-08 by mouth ity of tablet 00:00: daily. [place] [facility] aspirin 81 2016-0 Yes 81mg Take 1 Tab U nivers mg EC 2-08 by mouth ity of tablet 00:00: daily. [place] [facility] Branch aspirin 81 2016-0 Yes 81mg Take 1 Tab U nivers mg EC 2-08 by mouth ity of tablet 00:00: daily. [place] [facility] Branch aspirin 81 2016-0 Yes 81mg Take 1 Tab U nivers mg EC 2-08 by mouth ity of tablet 00:00: daily. [place] [facility] aspirin 81 2016-0 Yes 81mg Take 1 Tab U nivers mg EC 2-08 by mouth ity of tablet 00:00: daily. [place] [facility] aspirin 81 2016-0 Yes 81mg Take 1 Tab U nivers mg EC 2-08 by mouth ity of tablet 00:00: daily. [place] [facility] aspirin 81 2016-0 Yes 81mg Take 1 Tab U nivers mg EC 2-08 by mouth ity of tablet 00:00: daily. [address] Branch aspirin 81 2016-0 Yes 81mg Take 1 Tab U nivers mg EC 2-08 by mouth ity of tablet 00:00: daily. [address] aspirin 81 2016-0 Yes 81mg Take 1 Tab U nivers mg EC 2-08 by mouth ity of tablet 00:00: daily. [address] aspirin 81 2016-0 Yes 81mg Take 1 Tab U nivers mg EC 2-08 by mouth ity of tablet 00:00: daily. [place] [facility] aspirin 81 2016-0 Yes 81mg Take 1 Tab U nivers mg EC 2-08 by mouth ity of tablet 00:00: daily. [place] [facility] [place] aspirin 81 2016-0 Yes 81mg Take 1 Tab U nivers mg EC 2-08 by mouth ity of tablet 00:00: daily. [place] [facility] aspirin 81 2016-0 Yes 81mg Take 1 Tab U nivers mg EC 2-08 by mouth ity of tablet 00:00: daily. [place] [facility] aspirin 81 2016-0 Yes 81mg Take 1 Tab U nivers mg EC 2-08 by mouth ity of tablet 00:00: daily. [address] Immunizations Ordered Filled Immunization Date Status Comments [facility] e Immunization Name Name SARS-COV-2 COVID-19 2021-04-21 Completed Unive rsity of MODERNA VACCINE 00:00:00 [facility] SARS-COV-2 COVID-19 2021-04-21 Completed Unive rsity of MODERNA VACCINE 00:00:00 [facility] SARS-COV-2 COVID-19 2021-04-21 Completed Unive rsity of MODERNA VACCINE 00:00:00 [facility] SARS-COV-2 COVID-19 2021-04-21 Completed Unive rsity of MODERNA VACCINE 00:00:00 [facility] SARS-COV-2 COVID-19 2021-04-21 Completed Unive rsity of MODERNA VACCINE 00:00:00 [facility] SARS-COV-2 COVID-19 2020-09-12 Completed Unive rsity of MODERNA VACCINE 00:00:00 [facility] SARS-COV-2 COVID-19 2020-09-12 Completed Unive rsity of MODERNA VACCINE 00:00:00 [facility] SARS-COV-2 COVID-19 2020-09-12 Completed Unive rsity of MODERNA VACCINE 00:00:00 [facility] SARS-COV-2 COVID-19 2020-09-12 Completed Unive rsity of MODERNA VACCINE 00:00:00 [facility] SARS-COV-2 COVID-19 2020-09-12 Completed Unive rsity of MODERNA VACCINE 00:00:00 [facility] SARS-COV-2 COVID-19 2020-09-12 Completed Unive rsity of MODERNA VACCINE 00:00:00 [facility] SARS-COV-2 COVID-19 2020-08-16 Completed Unive rsity of MODERNA VACCINE 00:00:00 [facility] SARS-COV-2 COVID-19 2020-08-16 Completed Unive rsity of MODERNA VACCINE 00:00:00 [facility] SARS-COV-2 COVID-19 2020-08-16 Completed Unive rsity of MODERNA VACCINE 00:00:00 [facility] SARS-COV-2 COVID-19 2020-08-16 Completed Unive rsity of MODERNA VACCINE 00:00:00 [facility] SARS-COV-2 COVID-19 2020-08-16 Completed Unive rsity of MODERNA VACCINE 00:00:00 [facility] SARS-COV-2 COVID-19 2020-08-16 Completed Unive rsity of MODERNA VACCINE 00:00:00 [facility] Zoster Vaccine 2020-01-12 Completed University of Recombinant 00:00:00 [facility] Zoster Vaccine 2020-01-12 Completed University of Recombinant 00:00:00 [facility] Zoster Vaccine 2020-01-12 Completed University of Recombinant 00:00:00 [facility] Zoster Vaccine 2020-01-12 Completed University of Recombinant 00:00:00 [facility] Zoster Vaccine 2020-01-12 Completed University of Recombinant 00:00:00 [facility] Zoster Vaccine 2020-01-12 Completed University of Recombinant 00:00:00 [facility] Zoster Vaccine 2020-01-12 Completed University of Recombinant 00:00:00 [facility] Zoster Vaccine 2020-01-12 Completed University of Recombinant 00:00:00 [facility] Zoster Vaccine 2020-01-12 Completed University of Recombinant 00:00:00 [facility] Zoster Vaccine 2020-01-12 Completed University of Recombinant 00:00:00 [facility] Zoster Vaccine 2020-01-12 Completed University of Recombinant 00:00:00 [facility] Zoster Vaccine 2020-01-12 Completed University of Recombinant 00:00:00 [facility] Zoster Vaccine 2020-01-12 Completed University of Recombinant 00:00:00 [facility] Zoster Vaccine 2020-01-12 Completed University of Recombinant 00:00:00 [facility] Zoster Vaccine 2020-01-12 Completed University of Recombinant 00:00:00 [facility] Zoster Vaccine 2020-01-12 Completed University of Recombinant 00:00:00 [facility] Zoster Vaccine 2020-01-12 Completed University of Recombinant 00:00:00 [facility] Zoster Vaccine 2020-01-12 Completed University of Recombinant 00:00:00 [facility] Zoster Vaccine 2020-01-12 Completed University of Recombinant 00:00:00 [facility] Zoster Vaccine 2020-01-12 Completed University of Recombinant 00:00:00 [facility] Vital Signs Vital Name Observation Time Observation Value Comments Source Systolic blood 2021-05-06 09:30:00 128 mm[Hg] Univer sity of pressure [facility] Diastolic blood 2021-05-06 09:30:00 96 mm[Hg] Unive rsity of pressure [facility] Heart rate 2021-05-06 09:30:00 62 /min Universi ty [facility] Respiratory rate 2021-05-06 09:30:00 15 /min [facility] saturation in 2021-05-06 08:00:00 94 /min University of Arterial blood by [place] [facility] Pulse oximetry Branch Body temperature 2021-05-06 06:04:00 36.17 Shivani [facility] Body height 2021-05-06 06:04:00 162.6 cm [facility] Body weight 2021-05-06 06:04:00 72.576 kg [facility] BMI 2021-05-06 06:04:00 27.46 kg/m2 [facility] Systolic blood 2021-03-22 04:30:00 147 mm[Hg] Univer sity of pressure [facility] Diastolic blood 2021-03-22 04:30:00 77 mm[Hg] Unive rsity of pressure [facility] Heart rate 2021-03-22 04:30:00 101 /min Universi [facility] Respiratory rate 2021-03-22 04:30:00 20 /min [facility] O[facility] saturation in 2021-03-22 04:30:00 95 /min University of Arterial blood by [facility] Pulse oximetry Branch Body temperature 2021-03-22 04:00:00 37.17 Shivani [facility] Body weight 2021-03-22 01:57:00 79.243 kg Universi ty [facility] BMI 2021-03-22 01:57:00 29.99 kg/m2 Universi ty [facility] Systolic blood 2021-03-11 17:00:00 160 mm[Hg] Univer sity of pressure [facility] Diastolic blood 2021-03-11 17:00:00 93 mm[Hg] Unive rsity of [facility] Heart rate 2021-03-11 17:00:00 79 [facility] Respiratory rate 2021-03-11 17:00:00 16 /min [facility] Oxygen saturation in 2021-03-11 17:00:00 97 /min University of Arterial blood by [facility] Pulse oximetry Branch Body temperature 2021-03-11 13:51:00 37.22 Shivani [facility] Body weight 2021-03-11 13:51:00 80.74 kg Universi ty [facility] BMI 2021-03-11 13:51:00 30.55 kg/m2 Univers ty [facility] Systolic blood 2021-03-10 15:59:00 155 mm[Hg] Univer sity of [facility] Diastolic blood 2021-03-10 15:59:00 87 mm[Hg] Unive rsity of [facility] Heart rate 2021-03-10 15:54:00 90 /min Univers ty [facility] Body weight 2021-03-10 15:54:00 80.74 kg Universi [facility] BMI 2021-03-10 15:54:00 30.55 kg/m2 [facility] Procedures Procedure Date / Time Performing Clinician Source Performed CT ABDOMEN PELVIS W 2021-05-06 07:11:03 Swetha Sims [facility] CONTRAST [facility] LIPASE 2021-05-06 06:42:00 Swetha Sims [facility] COMP. METABOLIC PANEL 2021-05-06 06:42:00 Swetha Sims [facility] ([id number]) Medical Branch CBC WITH DIFF 2021-05-06 06:42:00 Swetha Sims [facility] URINALYSIS 2021-05-06 06:42:00 Swetha Sims [facility] NOTICE OF PRIVACY 2021-05-06 05:58:33 Doctor Unassigned, No [facility] PRACTICES Name Medical Branch CONSENT/REFUSAL FOR 2021-05-06 05:58:02 Doctor Unassigned, No [facility] Name Medical Branch SARS-COV-2 COVID-19 2021-04-21 15:54:04 [facility],IM Name Medical Branch (MODERNA) AUTHORIZATION FOR 2021-04-14 05:01:00 Doctor Unassigned, No [facility] RELEASE OF PHI Name Medical Branch URINALYSIS 2021-03-22 04:37:00 Kaela Amador [facility] CT ABDOMEN PELVIS W 2021-03-22 03:21:23 Kaela Amador [facility] CONTRAST [facility] CT CHEST PULMONARY 2021-03-22 03:21:23 Kaela Amador [facility] ANGIOGRAM Medical Branch COVID-19 (ID NOW RAPID 2021-03-22 02:23:00 Kaela Amador [facility] TESTING) Medical Branch TROPONIN I 2021-03-22 02:21:00 Kaela Amador [facility] HEPATIC FUNCTION PANEL 2021-03-22 02:21:00 [id number] (ALB,T.PRO,BILI Medical Branch T,BU/BC,ALT,AST,ALK PHOS) BASIC METABOLIC PANEL 2021-03-22 02:21:00 Kaela Amador [facility] (NA, K, CL, CO2, Medical Branch GLUCOSE, BUN, CREATININE, CA) CBC WITH DIFF 2021-03-22 02:21:00 Kaela Amador [facility] LACTIC ACID WHOLE BLOOD 2021-03-22 02:20:00 [facility] OF [facility]IVACY 2021-03-22 01:52:49 Doctor Unassigned, No [facility] PRACTICES Name Medical Branch CONSENT/REFUSAL FOR 2021-03-22 01:51:07 Doctor Un[facility]igned, [facility] Name Medical Branch REFERRAL- 2021-03-16 05:01:00 Doctor Unassigned, No [facility] REQUEST/RESPONSE Name Medical Branch NM MYOCARDIUM PERFUSION 2021-03-15 15:40:00 Tk, [facility] STRESS AND REST Medical Branch NUCLEAR STRESS TEST 2021-03-15 15:40:00 Tk, [facility] CARDIOLOGY (DO NOT Medical Branc h SCHED) NUCLEAR STRESS TEST 2021-03-15 15:40:00 Tk, [facility] CARDIOLOGY (DO NOT Medical Branc h SCHED) NM MYOCARDIUM PERFUSION 2021-03-15 15:40:00 Tk, [facility] STRESS AND REST Medical Branch NM MYOCARDIUM PERFUSION 2021-03-15 15:40:00 Tk, [facility] STRESS AND REST Medical Branch NUCLEAR STRESS TEST 2021-03-15 15:40:00 Tk, [facility] CARDIOLOGY (DO NOT Medical Branc h SCHED) NM MYOCARDIUM PERFUSION 2021-03-15 15:40:00 Tk, [facility] STRESS AND REST Medical Branch NUCLEAR STRESS TEST 2021-03-15 15:40:00 Tk, [facility] CARDIOLOGY (DO NOT Medical Branc h SCHED) TROPONIN I 2021-03-11 15:32:00 Kaela Amador [facility] XR CHEST 1 VW 2021-03-11 14:12:57 Kaela Amador [facility] TROPONIN I 2021-03-11 14:01:00 Kaela Amador [facility] COMP. METABOLIC PANEL 2021-03-11 14:01:00 Kaela Amador [facility] ([id number]) [facility] CBC WITH DIFF 2021-03-11 14:01:00 Kaela Amador [facility] N-TERMINAL PRO-BNP 2021-03-11 14:01:00 Kaela Amador [facility] COVID-19 (ID NOW RAPID 2021-03-11 14:01:00 Kaela Amador Un [facility] TESTING) [facility] CONSENT/REFUSAL FOR 2021-03-11 13:48:12 Doctor Unassigned, No [facility] [place] DIAGNOSIS AND TREATMENT Name [facility] PATIENT QUESTIONNAIRE 2021-03-02 05:01:00 Doctor Unassigned, No [facility] Name [facility] Encounters Start End Encounter Admission Attending Care Care Encounter Source Date/Time Date/Time Type Type Clinicians Facility Department ID 2021-04-11 Emergency [facility] [id number] Univers 06:18:23 ity [facility] 2021-04-11 Emergency [facility] [id number] Univers 03:17:55 ity [facility] 2021-04-11 [facility] [id number] Univers 02:25:43 ity [facility] 2021-04-07 Emergency [facility] [id number] Univers 22:11:45 ity [facility] 2021-07-21 2021-07-21 Outpatient R TK, [facility] [id number] Univers 09:40:00 09:40:00 MARLI [id number] ity o f [facility] 2021-06-12 2021-06-12 Outpatient [facility] [place] [id number] Univers 10:40:00 10:40:00 MARLI [id number] ity o f [facility] 2021-05-19 2021-05-19 [facility] [id number] Univers 00:00:00 00:00:00 Marli OSHEA [id number] ity [facility] [id number] [place] [phone] Oh dical NAL 059 Branch BUILDING 2021-05-05 2021-05-06 Emergency X [facility] ERT [id number] Univers 23:59:00 04:35:00 SWETHA anguloy [facility] 2021-05-05 2021-05-06 [facility] [id number] Univers 23:59:00 04:35:00 [facility] [id number] ity of [place] [id number] [place] [id number] [address] 2021-05-02 2021-05-02 Telephone [facility] [id number] Univers 00:00:00 00:00:00 [facility] [id number] it y of [place] [id number] Rubén as CM?BLEA [id number] [address] MEDICAL OFFICE [facility] 2021-05-01 2021-05-01 Telephone [facility] [id number] Univers 00:00:00 00:00:00 [facility] [id number] it y [facility] [place] [facility] [id number] Rubén as CM?BLEA [id number] [address] OFFICE [facility] 2021-04-21 2021-04-21 Imm/Inj Vaccine, Ang Db Cbc [facility] 1. [id number] Univers 09:25:25 09:35:25 Visit Chu Marli [facility] [id number] ity [facility] [id number] Rubén as CM?BLEA [id number] [address] 2021-04-21 2021-04-21 Outpatient R [facility] [id number] Univers 09:20:00 09:20:00 [id number] ity [facility] 2021-04-21 2021-04-21 Outpatient [facility] [place] [id number] Univers 09:20:00 09:20:00 MARLI [facility] 2021-04-18 2021-04-18 Telephone [facility] 1.2.840.114 [id number] Univers 00:00:00 00:00:00 [facility] [id number] it y of [place] [id number] Rubén as CM?BLEA [id number] [address] OFFICE [facility] 2021-04-14 2021-04-14 Telephone [facility] [id number] Univers 00:00:00 00:00:00 [facility] [id number] it y of [place] [id number] Rubén as CM?BLEA [id number] [address] OFFICE [facility] 2021-04-14 2021-04-14 Orders Doctor DIONI [id number] Univers 00:00:00 00:00:00 Only Unassigned, MYRNA [id number] ity of [place] [facility] [id number] Rubén as [id number] [facility] [address] [place] 2021-04-13 2021-04-13 Telephone [facility] 1.2.840.114 [id number] [facility] 00:00:00 00:00:00 [facility] [id number] it y of [place] [id number] Rubén as CM?BLEA [id number] [address] 2021-03-24 2021-03-24 Telephone [facility] 1.2.840.114 [id number] Univers 00:00:00 00:00:00 [facility] [id number] it y of [place] [id number] Rubén as Cm?Blea [id number] [address] 2021-03-21 2021-03-22 Emergency [facility] 1.2.840.114 [id number] Univers 21:04:00 00:31:00 Kaela O[place] [id number] ity of [place] [id number] [place] [id number] [facility] [address] [place] 2021-03-22 2021-03-22 Telephone [facility] [id number] Univers 00:00:00 00:00:00 Marli [place] [id number] ity [id number] Profess[place] [id number] Me dical nal 059 Branch [facility] 2021-03-16 2021-03-16 Orders Doctor DIONI 1.2.840.114 [id number] Univers 00:00:00 00:00:00 Only Unassigned, MYRNA [id number] ity of [place] [facility] [id number] Rubén as [phone] [facility] [address] [place] 2021-03-15 2021-03-15 [facility] 1.2.840.114 [id number] Univers 07:58:08 23:59:00 Encounter Marli [place] [id number] ity of [place] 4[place]2.7.2.686 [place] [id number] [facility] [address] [place] 2021-03-15 2021-03-15 [facility] [id number] Univers 08:00:00 08:00:00 MARLI [id number] ity o f [facility] 2021-03-15 2021-03-15 [facility] 1.2.840.114 [id number] Univers 07:57:44 07:57:44 Encounter Marli [place] [id number] ity of [place] 4.2.7.2.686 [facility] [place] [id number] [facility] [address] [place] 2021-03-15 2021-03-15 [facility] 1.2.840.114 [id number] Univers 07:57:17 07:57:17 Encounter Qiangheavenly [place] [id number] ity of [place] [id number] [place] [id number] [facility] [address] [place] 2021-03-15 2021-03-15 [facility] 1.2.840.114 [id number] Univers 07:55:23 07:56:00 Encounter Qiangheavenly [place] [id number] ity of [place] [id number] [place] [id number] [facility] [address] [place] 2021-03-15 2021-03-15 Outpatient [facility] [id number] Univers 00:00:00 00:00:00 QIANGHEAVENLY ity o f [facility] 2021-03-11 2021-03-11 Emergency [facility] 1.2.840.114 [id number] Univers 08:48:00 12:29:00 Kaela [place] [id number] ity of [place] [id number] [place] [id number] [facility] [address] [place] 2021-03-10 2021-03-10 Outpatient [facility] [id number] Univers 17:30:00 17:30:00 PAUL [id number] [facility] 2021-03-10 2021-03-10 Office [facility] 1.2.840.114 [id number] Univers 10:50:01 11:15:43 Visit [facility] [id number] it y of [place] 4.2.7.2.686 Rubén as Cm?Blea [id number] Oh opal [address] Medical Office Building 2021-03-10 2021-03-10 Outpatient R [facility] [facility] [id number] Univers 11:00:00 11:00:00 PAUL [facility] 2021-03-07 2021-03-07 [facility] [id number] Univers 08:00:00 08:00:00 PAUL [id number] [facility] 2021-03-07 2021-03-07 [facility] [id number] Univers 08:00:00 08:00:00 PAUL [facility] 2021-03-02 2021-03-02 Outpatient R [facility] [id number] Univers 08:30:00 08:30:00 [id number] y [facility] 2021-03-02 2021-03-02 Outpatient R [facility] [id number] Univers 08:30:00 08:30:00 ity [facility] 2021-03-02 2021-03-02 Darius WHEATLEY [id number] Univers 00:00:00 00:00:00 Only Unassigned, MYRNA [id number] [facility] [id number] Rubén as [phone] [address] 2021-02-27 2021-02-27 Outpatient R TK, [facility] [id number] Univers 08:40:00 08:40:00 MARLI [id number] ity o [facility] 2021-02-27 2021-02-27 Outpatient R TK, [facility] [id number] Univers 08:40:00 08:40:00 MARLI y o [facility] 2021-02-07 2021-02-07 Outpatient VESDEBRAADILSON, [facility] [id number] Univers 10:00:00 10:00:00 PAUL [id number] [facility] 2021-02-07 2021-02-07 Outpatient R JUN, [facility] [id number] Univers 10:00:00 10:00:00 PAUL [facility] 2021-01-31 2021-01-31 Outpatient R JUN, [facility] [id number] Univers 10:45:00 10:45:00 PAUL [id number] [facility] 2021-01-31 2021-01-31 Outpatient R JUN, [facility] [id number] Univers 10:45:00 10:45:00 PAUL [facility] 2021-01-10 2021-01-10 Outpatient R TK, [facility] [id number] Univers 10:40:00 10:40:[id number] [facility] o [facility] 2021-01-10 2021-01-10 Outpatient R TK, [facility] [id number] Univers 10:40:00 10:40:[address] [facility] o [facility] 2020-12-16 2020-12-16 Outpatient R SUMITKA, [facility] [id number] Univers 16:15:00 16:15:00 PAUL [id number] [facility] 2020-12-16 2020-12-16 Outpatient R JUN, [facility] [id number] Univers 16:15:00 16:15:00 PAUL [facility] 2020-09-26 2020-09-26 Outpatient R TK, [facility] [id number] Univers 09:20:00 09:20:00 MARLI [id number] ity o f [facility] 2020-07-13 2020-07-13 Outpatient R TK, [facility] [id number] Univers 11:20:00 11:20:00 MARLI ity o f [facility] 2020-07-13 2020-07-13 Outpatient R TK, [facility] [id number] Univers 11:20:00 11:20:00 MARLI [id number] ity o f [facility] 2020-07-08 2020-07-08 Outpatient R JERAMY ARAGONWVJayson [facility] [id number] Univers 09:00:00 09:00:00 NICHELLE ARAGON [id number] i ty of [facility] 2020-07-08 2020-07-08 Outpatient R NICHELLE ARAGON [facility] [id number] Univers 09:00:00 09:00:00 NICHELLE ARAGON i ty of [facility] 2020-05-19 2020-05-19 Outpatient R [facility] [id number] Univers 08:00:00 08:00:00 [id number] ity [facility] 2020-05-19 2020-05-19 Outpatient R ALICIA, [facility] [id number] Univers 08:00:00 08:00:00 SONI ity [facility] 2020-05-16 2020-05-16 Outpatient R [facility] [id number] Univers 08:45:00 08:45:00 [id number] ity [facility] 2020-05-16 2020-05-16 Outpatient R [facility] [id number] Univers 08:45:00 08:45:00 ity [facility] 2020-04-22 2020-04-22 Outpatient R [facility] [id number] Univers 09:00:00 09:00:00 [id number] ity [facility] 2020-04-22 2020-04-22 Outpatient R [facility] [id number] Univers 09:00:00 09:00:00 ity [facility] 2020-04-20 2020-04-20 Outpatient R JUN [facility] [id number] Univers 09:15:00 09:15:00 PAUL [id number] [facility] 2020-04-20 2020-04-20 Outpatient R JUN [facility] [id number] Univers 09:15:00 09:15:00 PAUL miquel [facility] 2020-04-12 2020-04-12 Outpatient R TK, [facility] [id number] Univers 11:20:00 11:20:00 MARLI ity o marlen [facility] 2020-04-12 2020-04-12 Outpatient R TK, [facility] [id number] Univers 11:20:00 11:20:00 MARLI paz o marlen [facility] 2020-03-23 2020-03-23 Outpatient R JUN [facility] [id number] Univers 09:00:00 09:00:00 PAUL [id number] [facility] 2020-03-23 2020-03-23 Outpatient R JUN [facility] [id number] Univers 09:00:00 09:00:00 PAUL [facility] 2019-09-23 2019-09-23 Outpatient R TK, [facility] [id number] Univers 09:40:00 09:40:00 MARLI [id number] paz o [facility] 2019-09-23 2019-09-23 Outpatient R TK, [facility] [id number] Univers 09:40:00 09:40:00 MARLI paz o marlen [facility] 2019-09-16 2019-09-16 Outpatient R [facility] [id number] Univers 09:00:00 [facility] 2019-09-16 Outpatient R TK, [facility] [id number] Univers 09:00:00 09:00:00 MARLI paz gee [facility] Results Test Description Test Time Test Comments [...] See_Comment [Au tomated message] The system which [employer] nerated this result transmit maria e reference [...] 32.2 g/dL 31.2-35.0 RDW-SD (test code = 23400-0) 50.2 fL 38.5-51.6 RDW-CV (test code = 788-0) 16.1 % 12.1-15.4 H PLT (test code = 777-3) See_Comment [Au tomated message] The system which [employer] nerated this result transmit maria e reference range: 150 - 32 8 10*3/?L. The reference range was not used to interpret th is result as normal/abnormal . MPV (test code = 53203-2) 9.8 fL 9.8-13.0 NRBC/100 WBC (test code = See_Comment [ Automated message] The 8530150488) system which [employer] nerated this result transmit maria e reference range: 0.0 - 10 .0 /100 WBCs. The reference r nishant was not used to interpr et this result as normal/abnor mal. NRBC x10^3 (test code = <0.01 See_Comment [Au tomated message] The 3117152918) system which [employer] nerated this result transmit maria e reference range: 10*3/?L. The reference range was not u sed to interpret this result as normal/abnormal . GRAN MAT (NEUT) % (test code 96.2 % = 770-8) IMM GRAN % (test code = 1.80 % 8904378029) LYMPH % (test code = 736-9) 1.6 % MONO % (test code = 5905-5) 0.2 % EOS % (test code = 713-8) 0.0 % BASO % (test code = 706-2) 0.2 % GRAN MAT x10^3(ANC) (test 21.81 10*3/uL 1.99-6.95 H code = 8761372647) IMM GRAN x10^3 (test code = 0.40 10*3/uL 0.00-0.06 H 9306511891) LYMPH x10^3 (test code = 0.36 10*3/uL 1.09-3.23 L 731-0) MONO x10^3 (test code = 0.05 10*3/uL 0.36-1.02 L 742-7) EOS x10^3 (test code = <0.03 0.06-0.53 L 711-2) BASO x10^3 (test code = 0.05 10*3/uL 0.01-0.09 704-7) Lab Interpretation (test Abnormal code = 74192-5) [facility]. METABOLIC PANEL (43356)2021-05-06 07:35:17 Test Item Value Reference Range Interpretation Comments NA (test code = 135 mmol/L 135-145 4379308886) K (test code = 5.0 mmol/L 3.5-5.0 3267474600) CL (test code = 106 mmol/L 98-108 6348118511) CO2 TOTAL (test code = 22 mmol/L 23-31 L 6849900675) AGAP (test code = 2-16 2759633507) BUN (test code = 53 mg/dL 7-23 H 6951616785) GLUCOSE (test code = 114 mg/dL 70-110 H 9651982755) CREATININE (test code = 0.83 mg/dL 0.60-1.25 4374564843) TOTAL BILI (test code = 1.3 mg/dL 0.1-1.1 H 6806663947) CALCIUM (test code = 12.0 mg/dL 8.6-10.6 H 5923124455) T PROTEIN (test code = 6.5 g/dL 6.3-8.2 2508904232) ALBUMIN (test code = 3.0 g/dL 3.5-5.0 L 6567414965) ALK PHOS (test code = 261 U/L 34-122 H 8887441880) ALTv (test code = 61 U/L 5-50 H 1742-6) AST(SGOT) (test code = 109 U/L 13-40 H 6927633484) eGFR (test code = mL/min/1.73m2 8073517909) ANTON (test code = ANTON) Association of [...] tests). Lab Interpretation Abnormal (test code = 23170-9) [facility] 07[facility]24:59 Test Item Value Reference Range Interpretation Comments LIPASE (test code = 6669582898) 482 U/L 0-220 H Lab Interpretation (test code = Abnormal 07710-8) [facility] [id number] 03:00:45 Test Item Value Reference Interpretation Comments Range TROPONIN I (test 0.002 ng/mL See_Comment [Automated code = 8988353532) message] The system which generated this result [...] biotin. Lab Interpretation Normal (test code = 50257-4) [facility] (NA, K, CL, CO2, GLUCOSE, BUN, CREATININE, CA)2021-03-22 02:49:26 Test Item Value Reference Range Interpretation Comments NA (test code = 135 mmol/L 135-145 1201514412) K (test code = 4.7 mmol/L 3.5-5.0 6787584421) CL (test code = 101 mmol/L 98-108 9702298327) CO2 TOTAL (test code 24 mmol/L 23-31 = 7799946897) AGAP (test code = 2-16 6705806786) BUN (test code = 15 mg/dL 7-23 2533464614) GLUCOSE (test code = 103 mg/dL 70-110 9249016869) CREATININE (test code 0.95 mg/dL 0.60-1.25 = 1573130659) CALCIUM (test code = 10.0 mg/dL 8.6-10.6 6162681850) eGFR (test code = mL/min/1.73m2 9355890587) ANTON (test code = ANTON) Association of [...] or urine or abnormalities in imaging tests). [facility] (41144[facility] (ALB,T.PRO,BILI T,BU/BC,ALT,AST,ALK PHOS)2021-03-22 02:49:26 Test Item Value Reference Range Interpretation Comments TOTAL BILI (test code = 3614011407) 0.7 mg/dL 0.1-1.1 BILI UNCON (test code = 8589172437) 0.4 mg/dL 0.1-1.1 BILI CONJ (test code = 0061634470) 0.0 mg/dL 0.0-0.3 T PROTEIN (test code = 3056363243) 7.5 g/dL 6.3-8.2 ALBUMIN (test code = 1391515288) 4.1 g/dL 3.5-5.0 ALK PHOS (test code = 0596272499) 248 U/L 34-122 H ALTv (test code = 1742-6) 46 U/L 5-50 AST(SGOT) (test code = 4265912432) 70 U/L 13-40 H Lab Interpretation (test code = Abnormal 16631-6) [facility] WITH [id number] 02:39:25 Test Item Value Reference Range Interpretation Comments WBC (test code = See_Comment H [Automated 6690-2) message] The system which generated this result transmit maria e reference range : 4.20 - 10.70 10*3/?L. The reference range was not used to interpret this result as normal/abnormal . RBC (test code = See_Comment [Automated 789-8) message] The system which generated this result [...] RDW-SD (test code = 42.5 fL 38.5-51.6 73343-3) RDW-CV (test code = 13.3 % 12.1-15.4 788-0) PLT (test code = See_Comment H [Automated 777-3) message] The system which generated this result transmit maria e reference range : 150 - 328 10*3/ ?L. The reference range was not u sed to interpret th is result as normal/abnormal . MPV (test code = 9.4 fL 9.8-13.0 L 73508-2) NRBC/100 WBC (test See_Comment [Automat ed code = 2582209958) message] The system which generated this result transmit maria e reference range : 0.0 - 10.0 /100 WBCs. The reference range was not used to interpret this result as normal/abnormal . NRBC x10^3 (test code <0.01 See_Comment [Auto mated = 6313308931) message] The system which generated this result transmit maria e reference range : 10*3/?L. The reference range was not used to interpret this result as normal/abnormal . GRAN MAT (NEUT) % 76.7 % (test code = 770-8) IMM GRAN % (test code 0.80 % = 8645259064) LYMPH % (test code = 10.3 % 736-9) MONO % (test code = 9.6 % 5905-5) EOS % (test code = 1.9 % 713-8) BASO % (test code = 0.7 % 706-2) GRAN MAT x10^3(ANC) 11.05 10*3/uL 1.99-6.95 H (test code = 3005202007) IMM GRAN x10^3 (test 0.11 10*3/uL 0.00-0.06 H code = 3004094499) LYMPH x10^3 (test code 1.48 10*3/uL 1.09-3.23 = 731-0) MONO x10^3 (test code 1.38 10*3/uL 0.36-1.02 H = 742-7) EOS x10^3 (test code = 0.27 10*3/uL 0.06-0.53 711-2) BASO x10^3 (test code 0.10 10*3/uL 0.01-0.09 H = 704-7) Lab Interpretation Abnormal (test code = 64404-5) [facility] CenterL[facility] Whole [id number] 02:28:02 Test Item Value Reference Range Interpretation Comments LACTIC ACID (test code = 1.48 mmol/L 0.50-2.20 7317316476) Lab Interpretation (test code = Normal 14931-7) [facility] CenterTR[facility] [id number] 16:51:36 Test Item Value Reference Interpretation Comments Range TROPONIN I (test 0.003 ng/mL See_Comment [Automated code = 8316335700) message] The system which generated this result [...] biotin. Lab Interpretation Normal (test code = 46534-0) [facility] CenterTR[facility] [id number] 14:51:08 Test Item Value Reference Interpretation Comments Range TROPONIN I (test 0.003 ng/mL See_Comment [Automated code = 5708085663) message] The system which generated this result [...] biotin. Lab Interpretation Normal (test code = 15013-0) [facility] CenterN-[facility]MINAL [id number] 14:47:52 Test Item Value Reference Range Interpretation Comments NT-proBNP (test code 1110 pg/mL See_Comment H [Autom ated = 8440709720) message] The system which generated this result transmitted reference range : <=125. The reference range was not used to interpret this result as normal/abnormal . ANTON (test code = ANTON) Biotin has been reported to cause a negative bias, interpret results relative to patient's use of biotin. Lab Interpretation Abnormal (test code = 38105-5) [facility] Center[facility]. METABOLIC PANEL (70304)2021-03-11 14:39:29 Test Item Value Reference Range Interpretation Comments NA (test code = 139 mmol/L 135-145 3255536754) K (test code = 4.1 mmol/L 3.5-5.0 9194310238) CL (test code = 103 mmol/L 98-108 3434451954) CO2 TOTAL (test code = 27 mmol/L 23-31 3714857060) AGAP (test code = 2-16 6765932098) BUN (test code = 19 mg/dL 7-23 5927395869) GLUCOSE (test code = 110 mg/dL 70-110 9056885288) CREATININE (test code = 1.03 mg/dL 0.60-1.25 4320931621) TOTAL BILI (test code = 0.8 mg/dL 0.1-1.4 7624779464) CALCIUM (test code = 9.7 mg/dL 8.6-10.6 7935891968) T PROTEIN (test code = 7.1 g/dL 6.3-8.2 1519251539) ALBUMIN (test code = 4.0 g/dL 3.5-5.0 3899096875) ALK PHOS (test code = 187 U/L 34-122 H 4619701324) ALTv (test code = 30 U/L 5-50 1742-6) AST(SGOT) (test code = 57 U/L 13-40 H 7202813308) eGFR (test code = mL/min/1.73m2 6544150163) ANTON (test code = ANTON) Association of [...] tests). Lab Interpretation Abnormal (test code = 33420-7) [facility] WITH [id number] 14:19:46 Test Item Value Reference Range Interpretation Comments WBC (test code = See_Comment H [Automated 3104-2) message] The sy stem which generated this result transmitted reference range : 4.20 - 10.70 10*3/?L. The reference range was not used to interpret this result as normal/abnormal . RBC (test code = See_Comment [Automated 429-8) message] The sy stem which generated this [...] RDW-SD (test code = 42.9 fL 38.5-51.6 94785-3) RDW-CV (test code = 13.1 % 12.1-15.4 788-0) PLT (test code = See_Comment [Automated 777-3) message] The sy stem which generated this result transmitted reference range : 150 - 328 10*3/ ?L. The reference r nishant was not used to interpret this result as normal/abnormal . MPV (test code = 9.6 fL 9.8-13.0 L 61334-2) NRBC/100 WBC (test See_Comment [Automat ed code = 7672174608) message] The system which generated this result transmitted reference range : 0.0 - 10.0 /100 WBCs. The refer ence range was not u sed to interpret th is result as normal/abnormal . NRBC x10^3 (test code <0.01 See_Comment [Auto mated = 4720820682) message] The s ystem which generated this result transmitted reference range : 10*3/?L. The reference range was not used to interpret this result as normal/abnormal . GRAN MAT (NEUT) % 74.3 % (test code = 770-8) IMM GRAN % (test code 0.80 % = 1650037042) LYMPH % (test code = 12.3 % 736-9) MONO % (test code = 8.9 % 5905-5) EOS % (test code = 3.1 % 713-8) BASO % (test code = 0.6 % 706-2) GRAN MAT x10^3(ANC) 8.38 10*3/uL 1.99-6.95 H (test code = 7689471636) IMM GRAN x10^3 (test 0.09 10*3/uL 0.00-0.06 H code = 4118364173) LYMPH x10^3 (test code 1.39 10*3/uL 1.09-3.23 = 731-0) MONO x10^3 (test code 1.00 10*3/uL 0.36-1.02 = 742-7) EOS x10^3 (test code = 0.35 10*3/uL 0.06-0.53 711-2) BASO x10^3 (test code 0.07 10*3/uL 0.01-0.09 = 704-7) Lab Interpretation Abnormal (test code = 03691-9) [facility]"
--- NOTE | 2021-05-20 13:29 | RAD REPORT ---
EXAM DESCRIPTION: CTAbdomen Pelvis W Contrast - 05/20/2021 1:14 pm CLINICAL HISTORY: ABD PAIN COMPARISON: <Comparisons> TECHNIQUE: CT of the abdomen and pelvis was performed. All CT scans are performed using dose optimization technique as appropriate and may include automated exposure control or mA/KV adjustment according to patient size. FINDINGS: Lower chest: Small right pleural effusion. Associated atelectasis. Left lower lobe pulmona ry nodule measuring 9 millimeters which is suspicious. Other pulmonary nodules noted. Coronary artery calcifications. Liver: Numerous liver lesions are present within both hepatic lobes, the largest is a confluent mass in the right hepatic lobe measuring over 12 cm. Biliary: No biliary ductal dilatation. Stomach: No significant focal abnormality. Duodenum: No significant focal abnormality. Pancreas: No significant abnormality. Spleen: No significant abnormality. Adrenal: No suspicious lesions. Kidney/ureter: No hydronephrosis. No renal calculi. Retroperitoneum: Retroperitoneal lymphadenopathy is identified. For example, there is a periaortic ly mph node measuring 11 millimeters. Vascular: Atherosclerosis. 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 The ma in portal vein is patent. Bowel: No significant focal abnormality. Peritoneum: Small volume of ascites. This is increased. Bladder: Grossly unremarkable. Reproductive: No adnexal masses. Bones: Lytic lesions are present in the spine and pelvis. Other: n/a IMPRESSION: Findings consistent with metastatic disease including innumerable liver lesions, pulmona ry nodules, osseous metastatic disease, and abdominal and retroperitoneal lymphadenopathy. The primar y is tumor unclear. Increased ascites compared with 05/06/2021 . Some of the portal vein branches to the right hepatic lo be are occluded secondary to either tumor or bland thrombus.
--- NOTE | 2021-05-20 13:37 | EDPHYS ---
Physician Documentation [facility] Name: Sesar Alcantara Age: 66 yrs Sex: Male : 1955 Arrival Date: 05/20/2021 Time: 11:[address] Private MD: Kourtney Marquez ED Physician Dayan Gillis HPI: 05/20 12:36 This 66 yrs old Male presents to ER via Wheelchair with complaints of Hip Pain ma2 - fell yest. 12:36 The patient or guardian reports pain. The complaints affect the abdomen. Onset: The ma2 symptoms/episode began/occurred suddenly, 1 day(s) ago. Associated signs and symptoms: Pertinent negatives: anorexia, dizziness, headache, incontinence, vomiting, weakness. Severity of symptoms: At their worst the symptoms were moderate, in the emergency department the symptoms are unchanged. The patient has not experienced similar symptoms in the past. patient slipped and fell left lower abd pain . Historical: - Allergies: 12:07 No Known Allergies; vg1 - Home Meds: 12:07 Hydrocodone-Acetaminophen Oral [Active]; Furosemide Oral [Active]; Dexamethasone Oral vg1 [Active]; pantoprazole oral [Active]; - PMHx: 12:07 Hypercholesterolemia; Hypertensive disorder; liver cancer; Stage IV bile duct CA; vg1 - Immunization history:: Client reports receiving the 2nd dose of the Covid vaccine. - Social history:: Smoking status: Patient/guardian denies using tobacco. - Family history:: not pertinent. ROS: 12:36 Constitutional: Negative for fever, chills, and weight loss. ma2 12:36 All other systems are negative. Exam: 12:36 Constitutional: This is a well developed, well nourished patient who is awake, alert, ma2 and in no acute distress. Neck: Trachea midline, no thyromegaly or masses palpated, and no cervical lymphadenopathy. Supple, full range of motion without nuchal rigidity, or vertebral point tenderness. No Meningismus. Chest/axilla: Normal chest wall appearance and motion. Nontender with no deformity. No lesions are appreciated. Cardiovascular: Regular rate and rhythm with a normal S1 and S2. No gallops, murmurs, or rubs. Normal PMI, no JVD. No pulse deficits. Respiratory: Lungs have equal breath sounds bilaterally, clear to auscultation and percussion. No rales, rhonchi or wheezes noted. No increased work of breathing, no retractions or nasal flaring. Abdomen/GI: ttp llq abdomin, otherwise Soft, non-tender, with normal bowel sounds. No distension or tympany. No guarding or rebound. No evidence of tenderness throughout. Skin: Warm, dry with normal turgor. Normal color with no rashes, no lesions, and no evidence of cellulitis. Vital Signs: 12:05 BP 119 / 67; Pulse 98; Resp 16; Temp 98.2; Pulse Ox 100% ; Weight 75.3 kg; Height 5 ft. vg1 4 in. (162.56 cm); Pain 8/10; 12:30 BP 102 / 90; Pulse 96; Resp 17; Pulse Ox 97% on R/A; jg9 13:30 BP 122 / 71; Pulse 96; Resp 17; Pulse Ox 100% on R/A; jg9 12:05 Body Mass Index 28.49 (75.30 kg, 162.56 cm) vg1 MDM: 12:26 Patient medically screened. ma2 12:36 Differential diagnosis: hip fracture, bursitis, arthritis, strain, lower abd pain. ma2 13:34 Data reviewed: vital signs, nurses notes. Counseling: I had a detailed discussion with ma2 the patient and/or guardian regarding: the historical points, exam findings, and any diagnostic results supporting the discharge/admit diagnosis, the presence of at least one elevated blood pressure reading (>120/80) during this emergency department visit, the need for outpatient follow up. Response to treatment: the patient's symptoms have markedly improved after treatment. 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 The main reason for CT was to rule out traumatic injury, which has been ruled out today.. 05/20 12:36 Order name: CT Abd/Pelvis - IV Contrast Only; Complete Time: 13:34 ma2 Administered Medications: No medications were administered Disposition Summary: 05/20/21 13:35 Discharge Ordered Location: Home ma Condition: Stable ma2 Diagnosis - Lower abdominal pain, unspecified ma2 Followup: ma2 - With: Private Physician - When: Tomorrow - Reason: If symptoms return, Continuance of care Discharge Instructions: - Discharge Summary Sheet ma2 - Abdominal Pain, Adult ma2 Forms: - Medication Reconciliation Form ma2 - Thank You Letter ma2 - Antibiotic Education ma2 - Prescription Opioid Use ma2 Prescriptions: - Diclofenac Sodium 75 mg Oral Tablet Sustained Release - take 1 tablet by ORAL route 2 times per day; 30 tablet; Refills: 0, Product ma2 Selection Permitted Signatures: Dispatcher [employer] EDMS Dayan Gillis MD MD ma2 Laverne Mendieta RN RN vg1 Corrections: (The following items were deleted from the chart) 12:09 12:07 PSHx: Cholecystectomy; vg1 vg1
--- NOTE | 2021-05-20 13:37 | ER ---
Nurse's Notes [facility] Name: Sesar Alcantara Age: 66 yrs Sex: Male : 1955 Arrival Date: 05/20/2021 Time: 11:[address] Private MD: Kourtney Marquez Diagnosis: Lower abdominal pain, unspecified Presentation: 05/20 12:05 Chief complaint: Patient states: was getting out of bed with the assistance of walker vg1 and lost footing and fell onto left side. Pt states Left hip pain and Left elbow pain. Pt also appears to have a skin tear to Left upper forearm. Coronavirus screen: Vaccine status: Patient reports receiving the 2nd dose of the covid vaccine. Client denies travel out of the [place] in the last 14 days. At this time, the client does not indicate any symptoms associated with coronavirus-19. Ebola Screen: Patient negative for fever greater than or equal to 101.5 degrees Fahrenheit, and additional compatible Ebola Virus Disease symptoms. Initial Sepsis Screen: Does the patient meet any 2 criteria? No. Patient's initial sepsis screen is negative. Does the patient have a suspected source of infection? No. Patient's initial sepsis screen is negative. Risk Assessment: Do you want to hurt yourself or someone else? Patient reports no desire to harm self or others. Onset of symptoms was May 19, 2021. 12:05 Method Of Arrival: Wheelchair vg1 12:05 Acuity: MARLEEN 4 vg1 Triage Assessment: 12:07 General: Appears in no apparent distress. comfortable, Behavior is calm, cooperative. vg1 Pain: Complains of pain in left hip, left elbow. Historical: - Allergies: 12:07 No Known Allergies; vg1 - Home Meds: 12:07 Hydrocodone-Acetaminophen Oral [Active]; Furosemide Oral [Active]; Dexamethasone Oral vg1 [Active]; pantoprazole oral [Active]; - PMHx: 12:07 Hypercholesterolemia; Hypertensive disorder; liver cancer; Stage IV bile duct CA; vg1 - Immunization history:: Client reports receiving the 2nd dose of the Covid vaccine. - Social history:: Smoking status: Patient/guardian denies using tobacco. - Family history:: not pertinent. Screenin:30 Abuse screen: Denies threats or abuse. Denies injuries from another. Nutritional jg9 screening: No deficits noted. Tuberculosis screening: No symptoms or risk factors identified. Fall Risk Fall in past 12 months (25 points). Secondary diagnosis (15 points) Ambulatory Aid- Crutches/Cane/Walker (15 pts). Gait- Weak (10 pts.). Mental Status- Oriented to own ability (0 pts). Assessment: 12:30 General: Appears in no apparent distress. Behavior is calm, cooperative, appropriate jg9 for age, Smells of. Pain: Complains of pain in abdomen/flank-left upper and lower abd pain-fell yesterday. Neuro: No deficits noted. Cardiovascular: No deficits noted. Respiratory: No deficits noted. GI: No deficits noted. : No deficits noted. EENT: No deficits noted. Derm: No deficits noted. Musculoskeletal: Reports pain in abdomen-left flank/abd from fall pain to r side chronic-hx biliary CA with mets to pancreas and liver. Vital Signs: 12:05 BP 119 / 67; Pulse 98; Resp 16; Temp 98.2; Pulse Ox 100% ; Weight 75.3 kg; Height 5 ft. vg1 4 in. (162.56 cm); Pain 8/10; 12:30 BP 102 / 90; Pulse 96; Resp 17; Pulse Ox 97% on R/A; jg9 13:30 BP 122 / 71; Pulse 96; Resp 17; Pulse Ox 100% on R/A; jg9 12:05 Body Mass Index 28.49 (75.30 kg, 162.56 cm) vg1 ED Course: 11:48 Patient arrived in ED. as 11:48 Kourtney Marquez MD is Private Physician. as 12:02 Dayan Gillis MD is Attending Physician. ma2 12:07 Triage completed. vg1 12:07 Arm band placed on. vg1 12:13 Mireille Braun is Primary Nurse. jg9 12:30 Patient has correct armband on for positive identification. Bed in low position. Call jg9 light in reach. Side rails up X 1. 13:00 Inserted saline lock: 22 gauge in right forearm, using aseptic technique. jg9 13:13 CT Abd/Pelvis - IV Contrast Only In Process Unspecified. EDMS 14:01 No provider procedures requiring assistance completed. jg9 14:02 IV discontinued. jg9 Administered Medications: No medications were administered Outcome: 13:35 Discharge ordered by . gus 14:01 Discharged to home via wheelchair, with family. jg9 14:01 Condition: stable 14:01 Discharge instructions given to patient, family, Instructed on discharge instructions, follow up and referral plans. Demonstrated understanding of instructions, follow-up care, medications, Prescriptions given X 1. 14:02 Patient left the ED. jg9 Signatures: Dispatcher [employer] Norma Maddox Mohammad, MD MD ma2 Laverne Mendieta, RN RN vg1 Mireille Braun jg9 Corrections: (The following items were deleted from the chart) 12:09 12:07 PSHx: Cholecystectomy; vg1 vg1
[2021-05-20 14:27] VITALS: TEMP 98.2
[2021-05-20 14:29] VITALS: BP 122/71; O2SAT 100
== END 2021-05-20 14:02 | disposition home or self-care (01) ==
LOC: ER 11:46
DX: R10.30 Lower abdominal pain, unspecified (principal); I10 Essential (primary) hypertension; C22.8 Malignant neoplasm of liver, primary, unspecified as to type
CPT/HCPCS: 74177; 99283

== ENCOUNTER 2021-05-25 07:13 | Day surgery (SDC) | payer BC ==
[2021-05-25] MEDS ORDERED: NS 0.9% VIAL 20 ML ONE (08:38)
[2021-05-25] MEDS ORDERED: LIDOCAINE 1% 20 ML MDV ONE (08:39)
[2021-05-25] MEDS ORDERED: MIDAZOLAM HCL 2 MG/2 ML INJ ONE (09:00)
[2021-05-25] MEDS ORDERED: LIDOCAINE 1% MPF 5 ML VIAL ONE (09:00)
[2021-05-25] MEDS ORDERED: FENTANYL CITR 100 MCG/2 ML ONE (09:00)
[2021-05-25] MEDS ORDERED: propofoL 200 MG/20 ML VIAL IV ONE (09:00)
[2021-05-25] MEDS ORDERED: Phenylephrine HCl 10 MG/ML 1 ML VIAL ONE (09:25)
[2021-05-25] MEDS ORDERED: NS 0.9% VIAL 10 ML ONE (09:25)
[2021-05-25] MEDS: HEPARIN 5000 UNIT/ML 1 ML VIAL ONE ×2 (09:39→09:40)
[2021-05-25] MEDS ORDERED: Mastisol Adhesive Liq ONE (09:51)
[2021-05-25 10:12] VITALS: O2SAT 100
--- NOTE | 2021-05-25 10:36 | RAD REPORT ---
EXAM DESCRIPTION: RAD - Fluoroscopy <1 Hour - 05/25/2021 10:23 am CLINICAL HISTORY: Device placement central venous catheter placement FINDINGS: A central venous catheter was placed into the superior vena cava. 3 fluoroscopic spot imag es are submitted. The examination was performed by Dr. Cochran Fluoroscopy time 0.4 minutes
--- NOTE | 2021-05-25 10:38 | RAD REPORT ---
EXAM DESCRIPTION: Matthewt Single View05/25/2021 10:24 am CLINICAL HISTORY: Device placement/central venous catheter placement IMPRESSION: Central venous catheter with its tip in the superior vena cava No pneumothorax
[2021-05-25] MEDS ORDERED: CEFAZOLIN/NS 1gm 1 GM/50 ML BAG ONE (10:59)
[2021-05-25] MEDS ORDERED: Ringers Lactate 1,000 ML IV ONE (10:59)
[2021-05-25] MEDS ORDERED: HYDROCODONE/APAP 7.5/325 MG TAB ONE (11:00)
[2021-05-25 11:08] VITALS: BP 109/63
[2021-05-25 11:39] VITALS: TEMP 97.2
--- NOTE | 2021-05-25 12:01 | OP ---
Date of Procedure: 05/25/2021 Surgeon: Marcin Cochrna MD Air Deodorizer Servicer: BOBBY Velasquez Preoperative Diagnosis: Colon and liver cancer. Postoperative Diagnosis: Colon and liver cancer. Procedure: Placement of right IJ Port-A-Cath and interpretation of fluoroscopy. Estimated Blood Loss: Minimal. Specimen: None. Findings: Normal anatomy. Anesthesia: MAC. Complications: None. Condition: The patient tolerated the procedure in stable condition. Taken to Recovery in good gener al condition. Operative Report: The patient was brought to the OR and placed in supine position. MAC anesthesia b sher. The patient was prepped and draped in usual sterile fashion. Lidocaine 1% infiltrated locally . 18-gauge needle used to access the right IJ vein. Guidewire was passed, position was confirmed wi th fluoroscopy. 3 cm incision was made on the right anterior chest and a pocket was created. Tunnel ing device used to tunnel the catheter between the two wounds. Seldinger technique used. Tip of the catheter was placed in the right side of the circulatory system under fluoroscopy in the SVC and the n catheter cut to appropriate size, attached to the Port-A-Cath device. Port-A-Cath device was attac hed to subcutaneous tissue with 3-0 Vicryl and then catheter port flushed with heparin and packed wit h heparin with good blood flow. An anterior chromic used to approximate the subcutaneous tissue and closed skin, sterile dressing applied. The patient was awakened and taken to Recovery in good genera l condition. Chest x-ray was done, which showed good placement of the port. No pneumothorax. Subse quently the patient will be discharged home. Disposition: Home. Condition: Stable. Discharge Instructions: Resume home medications and diet. Activity as tolerated. No heavy lifting. Remove outer dressing in 2 days. Shower. Keep wound clean and dry. Keep Steri-Strips on at all t imes. Tylenol No. 3 one tablet p.o. q 4 p.r.n. pain. [facility]. Follow up in my office in 2 weeks, call for appointment. WALLY/IFEOMA Voice ID: [id number] Report ID: [id number]
== END 2021-05-25 11:36 | disposition home or self-care (01) ==
LOC: PRE 07:13
PROVIDERS: ATTEND Surgery
PROC: 0JH60WZ Insertion of Totally Implantable Vascular Access Device into Chest Subcutaneous Tissue and Fascia, Open Approach (ICD-10-PCS; principal; 2021-05-25 09:00)
DX: C22.8 Malignant neoplasm of liver, primary, unspecified as to type (principal); C18.9 Malignant neoplasm of colon, unspecified; I11.0 Hypertensive heart disease with heart failure; I50.9 Heart failure, unspecified; Z87.891 Personal history of nicotine dependence; Z20.822 Contact with and (suspected) exposure to COVID-19
CPT/HCPCS: 71045; 76000; 36561; U0003; J2704; J2370; J1644 ×2; J2250; J3010; J0690; J7120; C1788

== ENCOUNTER 2021-05-31 10:27 | Inpatient (IN) | payer BC ==
--- OUTSIDE RECORDS SUMMARY | 2021-05-31 10:33 | XMS REPORT | Continuity of Care Document ---
:1955 Author Organization [facility] t Address [address] [place] [address] Care Team Providers Name Role Phone Brian Barahona MD Primary Care Physician KT Attending Clinician Unavailable Brian Barahona MD Attending Clinician Tk LESTER Attending Clinician Shameka SIMS Attending Clinician Unavailable Shameka Sims MD Attending Clinician Vaccine, Db Cbc Fam [...] Number Effective Date Expiration Date S avni [facility] [id number] 2009 00:00:00 Problems Condition Condition Condition Status Onset Resolution Last Treating Co mments Source Name Details Category Date Date Treatment Clinician Date Acute on Acute on Disease Active 2019-06 Unive rs chronic chronic 0-11 ity of diastolic diastolic 00:00: [place] CHF CHF 00 Medical (congestiv (congestiv Br anch e heart e heart failure), failure), NYHA class NYHA class 3 3 Obesity Obesity Disease Active 2019-06 Univers (BMI (BMI 0-10 ity of 30-39.9) 30-39.9) 00:00: [place] [facility] Fluid Fluid Disease Active 2019-06 Univers overload overload 0-09 ity of 00:00: [place] [facility] Branch ANN-MARIE ANN-MARIE Disease Active Univers (obstructi (obstructi 4-15 it y of ve sleep ve sleep 00:00: [place] apnea) apnea) 00 [facility] HLD HLD Disease Active Univers (hyperlipi (hyperlipi 5-09 it y of demia) demia) 00:00: [place] [facility] Branch Ischemic Ischemic Disease Active Unive rs cardiomyop cardiomyop 3-07 it y of athy athy 00:00: [place] [facility] Essential Essential Disease Active 2014-06 Uni vers hypertensi hypertensi 0-27 it y of on on 00:00: [address] Allergies, Adverse Reactions, Alerts Allergy Allergy Status Severity Reaction(s) Onset Inactive Treating Comm ents Source Name Type Date Date Clinician NO KNOWN Drug Active Univers ALLERGIE Class ity of S [facility] Social History Social Habit Start Date Stop Date Quantity Comments Source History of tobacco Cigarette Smoker University of use [facility] Exposure to Not sure [facility] SARS-CoV-2 (event) [facility] Alcohol intake 2021-05-06 2021-05-06 0 /d University of 00:00:00 00:00:00 [facility] Tobacco Comment 2020-03-19 2020-03-19 1pk a day. Universit y of 00:00:00 00:00:00 [facility] Cigarettes smoked 2015-04-05 2015-04-05 Univers ity of current (pack per 00:00:00 00:00:00 ) - Reported Branch Cigarette 2015-04-05 2015-04-05 University of pack-years 00:00:00 00:00:00 [facility] Tobacco use and 2015-04-05 2015-04-05 Never used Universit y of exposure 00:00:00 00:00:00 [facility] Sex [birth year] Universit y of 00:00:00 00:00:00 [facility] Smoking Status Start Date Stop Date Source Current every day smoker 2015-04-05 00:00:00 Uni versity of [facility] Medications Ordered Filled Start Stop Current Ordering Indication Dosage Frequency Signature Comments Components Source Medication Medication Date Date Medication? Clinician (SIG) Name Name sucralfate 2020-06 Yes [id number] 1000mg Take 10 mL Univers (CARAFATE) 2-20 by mouth ity o f 100 mg/mL 00:00: before [place] suspension 00 meals and Medi janell at Branch bedtime. furosemide 2020-06 Yes [id number] 40mg Take 1 Univers 40 mg 2-10 tablet by ity of tablet 00:00: mouth [place] 00 daily. [facility] Branch furosemide 2020-06 Yes [id number] 40mg Take 1 Univers 40 mg 2-10 tablet by ity of tablet 00:00: mouth [place] 00 daily. [facility] Branch furosemide 2020-06 Yes [id number] 40mg Take 1 Univers 40 mg 2-10 tablet by ity of tablet 00:00: mouth [place] 00 daily. [facility] Branch furosemide 2020-06 Yes [id number] 40mg Take 1 Univers 40 mg 2-10 tablet by ity of tablet 00:00: mouth [place] 00 daily. [facility] Branch furosemide 2020-06 Yes [id number] 40mg Take 1 Univers 40 mg 2-10 tablet by ity of tablet 00:00: mouth [place] 00 daily. [facility] ondansetron 2020-06- No 4mg 4 mg, Slow Univers (ZOFRAN 07-06 IV Push, ity of (PF)) 10:30: 09:26 ONCE, 1 [place] injection 4 00 :00 dose, On Medi janell mg [facility] 05/06/21 at 0430, MARIE morpHINE 2020-06- No 4mg 4 mg, Slow Un monse injection 4 07-06 IV Push, ity of mg 10:30: : ONCE, 1 [place] 00 :00 dose, On Medical [facility] 05/06/21 at 0430, STAT ciprofloxac 2020-06 Yes 500mg 500 mg, Un monse in HCl 07-06 Oral, ity of (CIPRO) 10:00: Q12HA2, [place] tablet 500 00 First dose Med ical mg on [facility] 05/06/21 at 0400, Until Discontinu ed, MARIE
Re ason for Anti-Infec tive: Empiric Therapy for Suspected Infection< br>Empiric Therapy Site: Abdominal& lt;br>Dura tion of therapy: 72 hours NaCl 0.9% 2020-06- No 500mL at 999 Univ ers (NS) bolus 07-06 mL/hr, 500 it y of infusion 07:30: 08:59 mL, IV [place] 500 mL 00 :00 Infusion, Medical ONCE, 1 Branch dose, On 05/06/21 at 0130, STAT ondansetron 2020-06- No 4mg 4 mg, Slow Univers (ZOFRAN 07-06 IV Push, ity of (PF)) 07:30: 06:38 ONCE, 1 [place] injection 4 00 :00 dose, On Medi janell mg Sat Branch 05/06/21 at 0130, MARIE morpHINE 2020-06- No 4mg 4 mg, Slow Un monse injection 4 07-06 IV Push, ity of mg 07:30: 06:38 ONCE, 1 [place] 00 :00 dose, On Medical Sat Branch 05/06/21 at 0130, STAT iohexol 2020-06- No [id number] 120mL 120 mL, Univers (OMNIPAQUE 07-06 Intravenou it y of 350 07:15: 07:06 s, ONCE, 1 [place] BULK-100 00 :00 dose, On Medical mL) Sat Branch injection 05/06/21 120 mL at 0115, Routine ciprofloxac 2020-06 Yes [id number] 500mg Take 1 Univers in HCl 500 -27 tablet by ity of mg tablet 00:00: mouth 2 [place] 00 (two) Medical times Branch daily. ondansetron 2020-06 Yes [id number] 4mg Take 1 Univers (ZOFRAN) 4 -27 tablet by ity of mg tablet 00:00: mouth [place] 00 every 8 Medical (eight) Branch hours as needed for Nausea and Vomiting (N/V). ciprofloxac 2020-06 Yes [id number] 500mg Take 1 Univers in HCl 500 -27 tablet by ity of mg tablet 00:00: mouth 2 [place] 00 (two) Medical times Branch daily. ondansetron 2020-06 Yes [id number] 4mg Take 1 Univers (ZOFRAN) 4 1-27 tablet by ity of mg tablet 00:00: mouth [place] 00 every 8 Medical (eight) Branch hours as needed for Nausea and Vomiting (N/V). ciprofloxac 2020-06 Yes [id number] 500mg Take 1 Univers in HCl 500 1-27 tablet by ity of mg tablet 00:00: mouth (two) Medical times Branch daily. ondansetron 2020-06 Yes [id number] 4mg Take 1 Univers (ZOFRAN) 4 1-27 tablet by ity of mg tablet 00:00: mouth 00 every 8 Medical (eight) Branch hours as needed for Nausea and Vomiting (N/V). ciprofloxac 2020-06 Yes [id number] 500mg Take 1 Univers in HCl 500 1-27 tablet by ity of mg tablet 00:00: mouth (two) Medical times Branch daily. ondansetron 2020-06 Yes [id number] 4mg Take 1 Univers (ZOFRAN) 4 1-27 tablet by ity of mg tablet 00:00: mouth 00 every 8 Medical (eight) Branch hours as needed for Nausea and Vomiting (N/V). ciprofloxac 2020-06 Yes [id number] 500mg Take 1 Univers in HCl 500 1-27 tablet by ity of mg tablet 00:00: mouth (two) Medical times Branch daily. ondansetron 2020-06 Yes [id number] 4mg Take 1 Univers (ZOFRAN) 4 1-27 tablet by ity of mg tablet 00:00: mouth [place] 00 every 8 Medical (eight) Branch hours as needed for Nausea and Vomiting (N/V). ciprofloxac 2020-06 Yes [id number] 500mg Take 1 Univers in HCl 500 1-27 tablet by ity of mg tablet 00:00: mouth (two) Medical times Branch daily. ondansetron 2020-06 Yes [id number] 4mg Take 1 Univers (ZOFRAN) 4 1-27 tablet by ity of mg tablet 00:00: mouth [place] 00 every 8 Medical (eight) Branch hours as needed for Nausea and Vomiting (N/V). ciprofloxac 2020-06 Yes [id number] 500mg Take 1 Univers in HCl 500 1-27 tablet by ity of mg tablet 00:00: mouth 2 [place] 00 (two) Medical times Branch daily. ondansetron 2020-06 Yes [id number] 4mg Take 1 Univers (ZOFRAN) 4 1-27 tablet by ity of mg tablet 00:00: mouth 00 every 8 Medical (eight) Branch hours as needed for Nausea and Vomiting (N/V). iopamidol 2020-06- No [id number] 120mL 120 mL, Univers (ISOVUE 0-13 10- Intravenou ity o f 300-500 mL) 04:30: 04:30 s, ONCE, 1 [place] injection 00 :00 dose, On Medica l 120 mL Sat03/21/21 at 2330, Routine acetaminoph 2020-06- No 650mg 650 mg, U nivers en 0-22 03- Oral, ity of (TYLENOL) 03:15: 02:40 ONCE, 1 [place] tablet 650 00 :00 dose, On Medic al mg Sat03/21/21 at 2215, MARIE FENTanyl PF 2020-06- No 50ug 50 mcg, Un monse (SUBLIMAZE 0-13 - Slow IV ity o f (PF)) 03:15: 02:40 Push, [place] injection 00 :00 ONCE, 1 Medical 50 mcg dose, On Branch Sat03/21/21 at 2215, Routine NaCl 0.9% 2020-06- No 1000mL at 999 Uni vers (NS) bolus 0-13 10-13 mL/hr, ity of infusion 03:15: 04:37 1,000 mL, Rubén as 1,000 mL 00 :00 IV Medical Infusion, Branch ONCE, 1 dose, On Sat03/21/21 at 2215, MARIE Regadenoson 2020-06- No [id number] .4mg 0.4 mg, IV Univers (LEXISCAN) 0-06 10-06 Push, ity of injection 15:00: 14:55 ONCE, 1 [place] 0.4 mg 00 :00 dose, On Medical 03/15/21 at 1000, Routine
council member approving Restricted medication : DAVID PHILLIPSWilfredoMarilia tc 2020-06- No [id number] 43.2mCi 43.2 Unive rs 99m-tetrofo 0-06 10- millicurie i ty of smin 15:00: 14:55 , [place] ([facility]) 00 :00 Intravenou Medi janell injection s, ONCE, 1 Bran ch 43.2 dose, On icurisat03/15/21 at 1000, Routine tc 2020-06- No [id number] 15.2mCi 15.2 Unive rs 99m-tetrofo 0-06 - millicurie i ty of smin 13:30: 13:19 , [place] ([facility]) 00 :00 Intravenou Medi janell injection s, ONCE, 1 Bran ch 15.2 dose, On icurisat03/15/21 at 0830, Routine aspirin 2020-06- No 324mg 324 mg, Unive rs chewable 002 Oral, ity of tablet 324 15:00: 14:06 [...] (scale 4-6). Indication s: acute pain acetaminoph 1-0 Yes [id number] 1{tbl} Take 1 Un monse en-codeine 9-29 tablet by ity of 300-30 mg 00:00: mouth [place] tablet 00 every 4 Medical (four) Branch hours as needed for Pain (scale 4-6). Indication s: acute pain acetaminoph 1-0 Yes [id number] 1{tbl} Take 1 Un monse [...] Indication s: acute pain etodolac 2021-0 Yes [id number] 400mg Take 1 U nivers (LODINE) 8-31 tablet by ity of 400 mg 00:00: mouth 2 [place] tablet 00 (two) Medical times Branch daily. etodolac 0 Yes [id number] 400mg Take 1 U nivers (LODINE) 8-31 tablet by ity of 400 mg 00:00: mouth 2 [place] tablet 00 (two) Medical times Branch daily. etodolac 0 Yes [id number] 400mg Take 1 U nivers (LODINE) 8-31 tablet by ity of 400 mg 00:00: mouth 2 [place] tablet 00 (two) Medical times Branch daily. etodolac Yes [id number] 400mg Take 1 U nivers (LODINE) 8-31 tablet by ity of 400 mg 00:00: mouth 2 [place] tablet 00 (two) Medical times Branch daily. etodolac Yes [id number] 400mg Take 1 U nivers (LODINE) 8-31 tablet by ity of 400 mg 00:00: mouth 2 [place] tablet 00 (two) Medical times Branch daily. etodolac Yes [id number] 400mg Take 1 U nivers (LODINE) 8-31 tablet by ity of 400 mg 00:00: mouth 2 [place] tablet 00 (two) Medical times Branch daily. etodolac Yes [id number] 400mg Take 1 U nivers (LODINE) 8-31 tablet by ity of 400 mg 00:00: mouth 2 [place] tablet 00 (two) Medical times Branch daily. etodolac Yes [id number] 400mg Take 1 U nivers (LODINE) 8-31 tablet by ity of 400 mg 00:00: mouth 2 [place] tablet 00 (two) Medical times Branch daily. etodolac 0 Yes [id number] 400mg Take 1 U nivers (LODINE) 8-31 tablet by ity of 400 mg 00:00: mouth 2 [place] tablet 00 (two) Medical times Branch daily. etodolac Yes [id number] 400mg Take 1 U nivers (LODINE) 8-31 tablet by ity of 400 mg 00:00: mouth 2 [place] tablet 00 (two) Medical times Branch daily. etodolac 2021-0 Yes [id number] 400mg Take 1 U nivers (LODINE) 8-31 tablet by ity of 400 mg 00:00: mouth 2 [place] tablet 00 (two) Medical times Branch daily. etodolac 2020-0 Yes [id number] 400mg Take 1 U nivers (LODINE) 8-31 tablet by ity of 400 mg 00:00: mouth 2 [place] tablet 00 (two) Medical times Branch daily. etodolac 2020-0 Yes [id number] 400mg Take 1 U nivers (LODINE) 8-31 tablet by ity of 400 mg 00:00: mouth 2 [place] tablet 00 (two) Medical times Branch daily. etodolac 0 Yes [id number] 400mg Take 1 U nivers (LODINE) 8-31 tablet by ity of 400 mg 00:00: mouth 2 [place] tablet 00 (two) Medical times Branch daily. etodolac 0 Yes [id number] 400mg Take 1 U nivers (LODINE) 8-31 tablet by ity of 400 mg 00:00: mouth 2 [place] tablet 00 (two) Medical times Branch daily. etodolac 0 Yes [id number] 400mg Take 1 U nivers (LODINE) 8-31 tablet by ity of 400 mg 00:00: mouth 2 [place] tablet 00 (two) Medical times Branch daily. etodolac 0 Yes [id number] 400mg Take 1 U nivers (LODINE) 8-31 tablet by ity of 400 mg 00:00: mouth 2 [place] tablet 00 (two) Medical times Branch daily. etodolac 0 Yes [id number] 400mg Take 1 U nivers (LODINE) 8-31 tablet by ity of 400 mg 00:00: mouth 2 [place] tablet 00 (two) Medical times Branch daily. etodolac 2020-0 Yes [id number] 400mg Take 1 U nivers (LODINE) 8-31 tablet by ity of 400 mg 00:00: mouth 2 [place] tablet 00 (two) Medical times Branch daily. etodolac 2020-0 Yes [id number] 400mg Take 1 U nivers (LODINE) 8-31 tablet by ity of 400 mg 00:00: mouth 2 [place] tablet 00 (two) Medical times Branch daily. etodolac 2020-0 Yes [id number] 400mg Take 1 U nivers (LODINE) 8-31 tablet by ity of 400 mg 00:00: mouth 2 [place] tablet 00 (two) Medical times Branch daily. etodolac 0 Yes [id number] 400mg Take 1 U nivers (LODINE) 8-31 tablet by ity of 400 mg 00:00: mouth 2 [place] tablet 00 (two) Medical times Branch daily. etodolac 0 Yes [id number] 400mg Take 1 U nivers (LODINE) 8-31 tablet by ity of 400 mg 00:00: mouth 2 [place] tablet 00 (two) Medical times Branch daily. etodolac 0 Yes [id number] 400mg Take 1 U nivers (LODINE) 8-31 tablet by ity of 400 mg 00:00: mouth 2 [place] tablet 00 (two) Medical times Branch daily. etodolac Yes [id number] 400mg Take 1 U nivers (LODINE) 8-31 tablet by ity of 400 mg 00:00: mouth 2 [place] tablet 00 (two) Medical times Branch daily. atorvastati Yes [id number] 80mg Take 1 Univers n 80 mg 8-16 tablet by ity of tablet 00:00: mouth [place] 00 daily. Medical Branch atorvastati Yes [id number] 80mg Take 1 Univers n 80 mg 8-16 tablet by ity of tablet 00:00: mouth [place] 00 daily. Medical Branch atorvastati Yes [id number] 80mg Take 1 Univers n 80 mg 8-16 tablet by ity of tablet 00:00: mouth [place] 00 daily. Medical Branch atorvastati Yes [id number] 80mg Take 1 Univers n 80 mg 8-16 tablet by ity of tablet 00:00: mouth [place] 00 daily. Medical Branch atorvastati Yes [id number] 80mg Take 1 Univers n 80 mg 8-16 tablet by ity of tablet 00:00: mouth [place] 00 daily. Medical Branch atorvastati Yes [id number] 80mg Take 1 Univers n 80 mg 8-16 tablet by ity of tablet 00:00: mouth [place] 00 daily. Medical Branch atorvastati 2020-0 Yes [id number] 80mg Take 1 Univers n 80 mg 8-16 tablet by ity of tablet 00:00: mouth [place] 00 daily. Medical Branch atorvastati 2020-0 Yes [id number] 80mg Take 1 Univers n 80 mg 8-16 tablet by ity of tablet 00:00: mouth [place] 00 daily. Medical Branch atorvastati 2020-0 Yes [id number] 80mg Take 1 Univers n 80 mg 8-16 tablet by ity of tablet 00:00: mouth [place] 00 daily. Medical Branch atorvastati 2020-0 Yes [id number] 80mg Take 1 Univers n 80 mg 8-16 tablet by ity of tablet 00:00: mouth [place] 00 daily. Medical Branch atorvastati 0 Yes [id number] 80mg Take 1 Univers n 80 mg 8-16 tablet by ity of tablet 00:00: mouth [place] 00 daily. Medical Branch atorvastati 0 Yes [id number] 80mg Take 1 Univers n 80 mg 8-16 tablet by ity of tablet 00:00: mouth [place] 00 daily. Medical Branch atorvastati 0 Yes [id number] 80mg Take 1 Univers n 80 mg 8-16 tablet by ity of tablet 00:00: mouth [place] 00 daily. Medical Branch atorvastati 0 Yes [id number] 80mg Take 1 Univers n 80 mg 8-16 tablet by ity of tablet 00:00: mouth [place] 00 daily. Medical Branch atorvastati 2020-0 Yes [id number] 80mg Take 1 Univers n 80 mg 8-16 tablet by ity of tablet 00:00: mouth [place] 00 daily. Medical Branch atorvastati 0 Yes [id number] 80mg Take 1 Univers n 80 mg 8-16 tablet by ity of tablet 00:00: mouth [place] 00 daily. Medical Branch atorvastati 0 Yes [id number] 80mg Take 1 Univers n 80 mg 8-16 tablet by ity of tablet 00:00: mouth [place] 00 daily. Medical Branch atorvastati 0 Yes [id number] 80mg Take 1 Univers n 80 mg 8-16 tablet by ity of tablet 00:00: mouth [place] 00 daily. Medical Branch atorvastati 0 Yes [id number] 80mg Take 1 Univers n 80 mg 8-16 tablet by ity of tablet 00:00: mouth [place] 00 daily. Medical Branch atorvastati 2020-0 Yes [id number] 80mg Take 1 Univers n 80 mg 8-16 tablet by ity of tablet 00:00: mouth [place] 00 daily. Medical Branch atorvastati 2020-0 Yes [id number] 80mg Take 1 Univers n 80 mg 8-16 tablet by ity of tablet 00:00: mouth [place] 00 daily. Medical Branch atorvastati 2020-0 Yes [id number] 80mg Take 1 Univers n 80 mg 8-16 tablet by ity of tablet 00:00: mouth [place] 00 daily. Medical Branch atorvastati 2020-0 Yes [id number] 80mg Take 1 Univers n 80 mg 8-16 tablet by ity of tablet 00:00: mouth [place] 00 daily. Medical Branch atorvastati 2020-0 Yes [id number] 80mg Take 1 Univers n 80 mg 8-16 tablet by ity of tablet 00:00: mouth [place] 00 daily. Medical Branch atorvastati 2020-0 Yes [id number] 80mg Take 1 Univers n 80 mg 8-16 tablet by ity of tablet 00:00: mouth [place] 00 daily. Medical Branch nitroglycer [id number] 1 Univers in 01-10 tablet ity of (NITROSTAT) 00:00: under the [place] 0.4 mg 00 tongue Medical sublingual every 5 Branc h tablet (five) minutes as needed for Chest pain. nitroglycer [id number] 1 Univers in 01-10 tablet ity of (NITROSTAT) 00:00: under the [place] 0.4 mg 00 tongue Medical sublingual every 5 Branc h tablet (five) minutes as needed for Chest pain. nitroglycer [id number] 1 Univers in 01-10 tablet ity of (NITROSTAT) 00:00: under the [place] 0.4 mg 00 tongue Medical sublingual every 5 Branc h tablet (five) minutes as needed for Chest pain. nitroglycer 2020-[id number] 1 Univers in 01-10 tablet ity of (NITROSTAT) 00:00: under the [place] 0.4 mg 00 tongue Medical sublingual every 5 Branc h tablet (five) minutes as needed for Chest pain. nitroglycer 2021-[id number] 1 Univers in 01-10 tablet ity of (NITROSTAT) 00:00: under the [place] 0.4 mg 00 tongue Medical sublingual every 5 Branc h tablet (five) minutes as needed for Chest pain. nitroglycer 2021-[id number] 1 Univers in 01-10 tablet ity of (NITROSTAT) 00:00: under the [place] 0.4 mg 00 tongue Medical sublingual every 5 Branc h tablet (five) minutes as needed for Chest pain. nitroglycer 2021-[id number] 1 Univers in 01-10 tablet ity of (NITROSTAT) 00:00: under the [place] 0.4 mg 00 tongue Medical sublingual every 5 Branc h tablet (five) minutes as needed for Chest pain. nitroglycer 2021-[id number] 1 Univers in 01-10 tablet ity of (NITROSTAT) 00:00: under the [place] 0.4 mg 00 tongue Medical sublingual every 5 Branc h tablet (five) minutes as needed for Chest pain. nitroglycer 2021-[id number] 1 Univers in 01-10 tablet ity of (NITROSTAT) 00:00: under the [place] 0.4 mg 00 tongue Medical sublingual every 5 Branc h tablet (five) minutes as needed for Chest pain. nitroglycer 2021-[id number] 1 Univers in 01-10 tablet ity of (NITROSTAT) 00:00: under the [place] 0.4 mg 00 tongue Medical sublingual every 5 Branc h tablet (five) minutes as needed for Chest pain. nitroglycer 2021-[id number] 1 Univers in 01-10 tablet ity of (NITROSTAT) 00:00: under the [place] 0.4 mg 00 tongue Medical sublingual every 5 Branc h tablet (five) minutes as needed for Chest pain. nitroglycer 2021-[id number] 1 Univers in 01-10 tablet ity of (NITROSTAT) 00:00: under the [place] 0.4 mg 00 tongue Medical sublingual every 5 Branc h tablet (five) minutes as needed for Chest pain. nitroglycer 2021-[id number] 1 Univers in 01-10 tablet ity of (NITROSTAT) 00:00: under the [place] 0.4 mg 00 tongue Medical sublingual every 5 Branc h tablet (five) minutes as needed for Chest pain. nitroglycer 2021-[id number] 1 Univers in 01-10 tablet ity of (NITROSTAT) 00:00: under the [place] 0.4 mg 00 tongue Medical sublingual every 5 Branc h tablet (five) minutes as needed for Chest pain. nitroglycer 2021-[id number] 1 Univers in 01-10 tablet ity of (NITROSTAT) 00:00: under the [place] 0.4 mg 00 tongue Medical sublingual every 5 Branc h tablet (five) minutes as needed for Chest pain. nitroglycer 2021-[id number] 1 Univers in 01-10 tablet ity of (NITROSTAT) 00:00: under the [place] 0.4 mg 00 tongue Medical sublingual every 5 Branc h tablet (five) minutes as needed for Chest pain. nitroglycer 2021-[id number] 1 Univers in 01-10 tablet ity of (NITROSTAT) 00:00: under the [place] 0.4 mg 00 tongue Medical sublingual every 5 Branc h tablet (five) minutes as needed for Chest pain. nitroglycer 2021-[id number] 1 Univers in 01-10 tablet ity of (NITROSTAT) 00:00: under the [place] 0.4 mg 00 tongue Medical sublingual every 5 Branc h tablet (five) minutes as needed for Chest pain. nitroglycer 2021-[id number] 1 Univers in 01-10 tablet ity of (NITROSTAT) 00:00: under the [place] 0.4 mg 00 tongue Medical sublingual every 5 Branc h tablet (five) minutes as needed for Chest pain. nitroglycer 2021-[id number] 1 Univers in 01-10 tablet ity of (NITROSTAT) 00:00: under the [place] 0.4 mg 00 tongue Medical sublingual every 5 Branc h tablet (five) minutes as needed for Chest pain. nitroglycer 2020-[id number] 1 Univers in 01-10 tablet ity of (NITROSTAT) 00:00: under the [place] 0.4 mg 00 tongue Medical sublingual every 5 Branc h tablet (five) minutes as needed for Chest pain. nitroglycer 2020-[id number] 1 Univers in 01-10 tablet ity of (NITROSTAT) 00:00: under the [place] 0.4 mg 00 tongue Medical sublingual every 5 Branc h tablet (five) minutes as needed for Chest pain. nitroglycer 2020-[id number] 1 Univers in 01-10 tablet ity of (NITROSTAT) 00:00: under the [place] 0.4 mg 00 tongue Medical sublingual every 5 Branc h tablet (five) minutes as needed for Chest pain. nitroglycer 2020-[id number] 1 Univers in 01-10 tablet ity of (NITROSTAT) 00:00: under the [place] 0.4 mg 00 tongue Medical sublingual every 5 Branc h tablet (five) minutes as needed for Chest pain. nitroglycer 2020-[id number] 1 Univers in 01-10 tablet ity of (NITROSTAT) 00:00: under the [place] 0.4 mg 00 tongue Medical sublingual every 5 Branc h tablet (five) minutes as needed for Chest pain. carvediloL 2020-0 Yes [id number] 25mg Take 1 U nivers 25 mg 2-03 tablet by ity of tablet 00:00: mouth (two) Medical times Branch daily with meals. hydroCHLORO 2021-0 Yes [id number] 25mg Take 1 Univers thiazide 25 2-03 tablet by ity of mg tablet 00:00: mouth 00 daily. Medical Branch losartan 2021-0 Yes [id number] 100mg Take 1 Un monse 100 mg 2-03 tablet by ity of tablet 00:00: mouth 00 daily. Medical Branch carvediloL 2021-0 Yes [id number] 25mg Take 1 U nivers 25 mg 2-03 tablet by ity of tablet 00:00: mouth 2 [place] 00 (two) Medical times Branch daily with meals. hydroCHLORO 2020-0 Yes [id number] 25mg Take 1 Univers thiazide 25 2-03 tablet by ity of mg tablet 00:00: mouth [place] 00 daily. Medical Branch losartan 2020-0 Yes [id number] 100mg Take 1 Un monse 100 mg 2-03 tablet by ity of tablet 00:00: mouth [place] 00 daily. Medical Branch carvediloL 2020-0 Yes [id number] 25mg Take 1 U nivers 25 mg 2-03 tablet by ity of tablet 00:00: mouth 2 [place] 00 (two) Medical times Branch daily with meals. hydroCHLORO 2020-0 Yes [id number] 25mg Take 1 Univers thiazide 25 2-03 tablet by ity of mg tablet 00:00: mouth [place] 00 daily. Medical Branch losartan 0 Yes [id number] 100mg Take 1 Un monse 100 mg 2-03 tablet by ity of tablet 00:00: mouth [place] 00 daily. Medical Branch carvediloL 0 Yes [id number] 25mg Take 1 U nivers 25 mg 2-03 tablet by ity of tablet 00:00: mouth 2 00 (two) Medical times Branch daily with meals. hydroCHLORO 2020-0 Yes [id number] 25mg Take 1 [facility] thiazide 25 2-03 tablet by ity of mg tablet 00:00: mouth [place] 00 daily. [facility] Branch losartan 2020-0 Yes [id number] 100mg Take 1 Un monse 100 mg 2-03 tablet by ity of tablet 00:00: mouth [place] 00 daily. Medical Branch carvediloL 2020-0 Yes [id number] 25mg Take 1 U nivers 25 mg 2-03 tablet by ity of tablet 00:00: mouth 2 00 (two) Medical times Branch daily with meals. hydroCHLORO 2020-0 Yes [id number] 25mg Take 1 [facility] thiazide 25 2-03 tablet by ity of mg tablet 00:00: mouth [place] 00 daily. [facility] losartan 2020-0 Yes [id number] 100mg Take 1 Un monse 100 mg 2-03 tablet by ity of tablet 00:00: mouth [place] 00 daily. [facility] carvediloL 2020-0 Yes [id number] 25mg Take 1 U nivers 25 mg 2-03 tablet by ity of tablet 00:00: mouth 2 [place] 00 (two) Medical times Branch daily with meals. hydroCHLORO 2020-0 Yes [id number] 25mg Take 1 [facility] thiazide 25 2-03 tablet by ity of mg tablet 00:00: mouth [place] 00 daily. [facility] losartan 2020-0 Yes [id number] 100mg Take 1 Un monse 100 mg 2-03 tablet by ity of tablet 00:00: mouth [place] 00 daily. [facility] carvediloL 2020-0 Yes [id number] 25mg Take 1 U nivers 25 mg 2-03 tablet by ity of tablet 00:00: mouth 2 [place] 00 (two) Medical times Branch daily with meals. hydroCHLORO 2020-0 Yes [id number] 25mg Take 1 [facility] thiazide 25 2-03 tablet by ity of mg tablet 00:00: mouth [place] 00 daily. [facility] losartan 0 Yes [id number] 100mg Take 1 Un monse 100 mg 2-03 tablet by ity of tablet 00:00: mouth [place] 00 daily. [facility] carvediloL 0 Yes [id number] 25mg Take 1 U nivers 25 mg 2-03 tablet by ity of tablet 00:00: mouth 2 00 (two) Medical times Branch daily with meals. hydroCHLORO 2020-0 Yes [id number] 25mg Take 1 [facility] thiazide 25 2-03 tablet by ity of mg tablet 00:00: mouth [place] 00 daily. [facility] losartan 2020-0 Yes [id number] 100mg Take 1 Un monse 100 mg 2-03 tablet by ity of tablet 00:00: mouth [place] 00 daily. [facility] carvediloL 2020-0 Yes [id number] 25mg Take 1 U nivers 25 mg 2-03 tablet by ity of tablet 00:00: mouth 2 00 (two) Medical times Branch daily with meals. hydroCHLORO 2020-0 Yes [id number] 25mg Take 1 [facility] thiazide 25 2-03 tablet by ity of mg tablet 00:00: mouth [place] 00 daily. [facility] losartan 2020-0 Yes [id number] 100mg Take 1 Un monse 100 mg 2-03 tablet by ity of tablet 00:00: mouth [place] 00 daily. [facility] carvediloL 2020-0 Yes [id number] 25mg Take 1 U nivers 25 mg 2-03 tablet by ity of tablet 00:00: mouth 2 [place] 00 (two) Medical times Branch daily with meals. hydroCHLORO 2020-0 Yes [id number] 25mg Take 1 [facility] thiazide 25 2-03 tablet by ity of mg tablet 00:00: mouth [place] 00 daily. [facility] losartan 2020-0 Yes [id number] 100mg Take 1 Un monse 100 mg 2-03 tablet by ity of tablet 00:00: mouth [place] 00 daily. [facility] carvediloL 2020-0 Yes [id number] 25mg Take 1 U nivers 25 mg 2-03 tablet by ity of tablet 00:00: mouth 2 [place] 00 (two) Medical times Branch daily with meals. hydroCHLORO 2020-0 Yes [id number] 25mg Take 1 [facility] thiazide 25 2-03 tablet by ity of mg tablet 00:00: mouth [place] 00 daily. [facility] losartan 0 Yes [id number] 100mg Take 1 Un monse 100 mg 2-03 tablet by ity of tablet 00:00: mouth [place] 00 daily. [facility] carvediloL 0 Yes [id number] 25mg Take 1 U nivers 25 mg 2-03 tablet by ity of tablet 00:00: mouth 2 00 (two) Medical times Branch daily with meals. hydroCHLORO 2020-0 Yes [id number] 25mg Take 1 [facility] thiazide 25 2-03 tablet by ity of mg tablet 00:00: mouth [place] 00 daily. [facility] losartan 2020-0 Yes [id number] 100mg Take 1 Un monse 100 mg 2-03 tablet by ity of tablet 00:00: mouth [place] 00 daily. [facility] carvediloL 2020-0 Yes [id number] 25mg Take 1 U nivers 25 mg 2-03 tablet by ity of tablet 00:00: mouth 2 00 (two) Medical times Branch daily with meals. hydroCHLORO 2020-0 Yes [id number] 25mg Take 1 [facility] thiazide 25 2-03 tablet by ity of mg tablet 00:00: mouth [place] 00 daily. [facility] losartan 2020-0 Yes [id number] 100mg Take 1 Un monse 100 mg 2-03 tablet by ity of tablet 00:00: mouth [place] 00 daily. [facility] carvediloL 2020-0 Yes [id number] 25mg Take 1 U nivers 25 mg 2-03 tablet by ity of tablet 00:00: mouth 2 [place] 00 (two) Medical times Branch daily with meals. hydroCHLORO 2020-0 Yes [id number] 25mg Take 1 [facility] thiazide 25 2-03 tablet by ity of mg tablet 00:00: mouth [place] 00 daily. [facility] losartan 2020-0 Yes [id number] 100mg Take 1 Un monse 100 mg 2-03 tablet by ity of tablet 00:00: mouth [place] 00 daily. [facility] carvediloL 2020-0 Yes [id number] 25mg Take 1 U nivers 25 mg 2-03 tablet by ity of tablet 00:00: mouth 2 [place] 00 (two) Medical times Branch daily with meals. hydroCHLORO 2020-0 Yes [id number] 25mg Take 1 [facility] thiazide 25 2-03 tablet by ity of mg tablet 00:00: mouth [place] 00 daily. [facility] losartan 0 Yes [id number] 100mg Take 1 Un monse 100 mg 2-03 tablet by ity of tablet 00:00: mouth [place] 00 daily. [facility] carvediloL 0 Yes [id number] 25mg Take 1 U nivers 25 mg 2-03 tablet by ity of tablet 00:00: mouth 2 00 (two) Medical times Branch daily with meals. hydroCHLORO 2020-0 Yes [id number] 25mg Take 1 [facility] thiazide 25 2-03 tablet by ity of mg tablet 00:00: mouth [place] 00 daily. [facility] losartan 2020-0 Yes [id number] 100mg Take 1 Un monse 100 mg 2-03 tablet by ity of tablet 00:00: mouth [place] 00 daily. [facility] carvediloL 2020-0 Yes [id number] 25mg Take 1 U nivers 25 mg 2-03 tablet by ity of tablet 00:00: mouth 2 00 (two) Medical times Branch daily with meals. hydroCHLORO 2020-0 Yes [id number] 25mg Take 1 [facility] thiazide 25 2-03 tablet by ity of mg tablet 00:00: mouth [place] 00 daily. [facility] losartan 2020-0 Yes [id number] 100mg Take 1 Un monse 100 mg 2-03 tablet by ity of tablet 00:00: mouth [place] 00 daily. [facility] carvediloL 2020-0 Yes [id number] 25mg Take 1 U nivers 25 mg 2-03 tablet by ity of tablet 00:00: mouth 2 [place] 00 (two) Medical times Branch daily with meals. hydroCHLORO 2020-0 Yes [id number] 25mg Take 1 [facility] thiazide 25 2-03 tablet by ity of mg tablet 00:00: mouth [place] 00 daily. [facility] losartan 2020-0 Yes [id number] 100mg Take 1 Un monse 100 mg 2-03 tablet by ity of tablet 00:00: mouth [place] 00 daily. [facility] carvediloL 2020-0 Yes [id number] 25mg Take 1 U nivers 25 mg 2-03 tablet by ity of tablet 00:00: mouth 2 [place] 00 (two) Medical times Branch daily with meals. hydroCHLORO 2020-0 Yes [id number] 25mg Take 1 [facility] thiazide 25 2-03 tablet by ity of mg tablet 00:00: mouth [place] 00 daily. [facility] losartan 0 Yes [id number] 100mg Take 1 Un monse 100 mg 2-03 tablet by ity of tablet 00:00: mouth [place] 00 daily. [facility] carvediloL 0 Yes [id number] 25mg Take 1 U nivers 25 mg 2-03 tablet by ity of tablet 00:00: mouth 2 00 (two) Medical times Branch daily with meals. hydroCHLORO 2020-0 Yes [id number] 25mg Take 1 [facility] thiazide 25 2-03 tablet by ity of mg tablet 00:00: mouth [place] 00 daily. [facility] losartan 2020-0 Yes [id number] 100mg Take 1 Un monse 100 mg 2-03 tablet by ity of tablet 00:00: mouth [place] 00 daily. [facility] carvediloL 2020-0 Yes [id number] 25mg Take 1 U nivers 25 mg 2-03 tablet by ity of tablet 00:00: mouth 2 00 (two) Medical times Branch daily with meals. hydroCHLORO 2020-0 Yes [id number] 25mg Take 1 [facility] thiazide 25 2-03 tablet by ity of mg tablet 00:00: mouth [place] 00 daily. [facility] Branch losartan 2020-0 Yes [id number] 100mg Take 1 Un monse 100 mg 2-03 tablet by ity of tablet 00:00: mouth [place] 00 daily. Medical Branch carvediloL 2020-0 Yes [id number] 25mg Take 1 U nivers 25 mg 2-03 tablet by ity of tablet 00:00: mouth 2 00 (two) Medical times Branch daily with meals. hydroCHLORO 0 Yes [id number] 25mg Take 1 [facility] thiazide 25 2-03 tablet by ity of mg tablet 00:00: mouth [place] 00 daily. [facility] Branch losartan 0 Yes [id number] 100mg Take 1 Un monse 100 mg 2-03 tablet by ity of tablet 00:00: mouth [place] 00 daily. Medical Branch carvediloL Yes [id number] 25mg Take 1 U nivers 25 mg 2-03 tablet by ity of tablet 00:00: mouth 2 00 (two) Medical times Branch daily with meals. hydroCHLORO 0 Yes [id number] 25mg Take 1 [facility] thiazide 25 2-03 tablet by ity of mg tablet 00:00: mouth [place] 00 daily. [facility] Branch losartan Yes [id number] 100mg Take 1 Un monse 100 mg 2-03 tablet by ity of tablet 00:00: mouth [place] 00 daily. Medical Branch carvediloL Yes [id number] 25mg Take 1 U nivers 25 mg 2-03 tablet by ity of tablet 00:00: mouth 2 00 (two) Medical times Branch daily with meals. hydroCHLORO Yes [id number] 25mg Take 1 [facility] thiazide 25 2-03 tablet by ity of mg tablet 00:00: mouth [place] 00 daily. [facility] Branch losartan Yes [id number] 100mg Take 1 Un monse 100 mg 2-03 tablet by ity of tablet 00:00: mouth [place] 00 daily. Medical Branch carvediloL Yes [id number] 25mg Take 1 U nivers 25 mg 2-03 tablet by ity of tablet 00:00: mouth 2 00 (two) Medical times Branch daily with meals. hydroCHLORO Yes [id number] 25mg Take 1 [facility] thiazide 25 2-03 tablet by ity of mg tablet 00:00: mouth [place] 00 daily. [facility] Branch losartan 0 Yes [id number] 100mg Take 1 Un monse 100 mg 2-03 tablet by ity of tablet 00:00: mouth [place] 00 daily. Medical Branch aspirin 81 0 Yes 81mg Take 1 Tab U nivers mg EC 2-08 by mouth ity of tablet 00:00: daily. 00 Medical Branch aspirin 81 2016-0 Yes 81mg Take 1 Tab U nivers mg EC 2-08 by mouth ity of tablet 00:00: daily. [place] [facility] Branch aspirin 81 2016-0 Yes 81mg Take 1 Tab U nivers mg EC 2-08 by mouth ity of tablet 00:00: daily. [place] [facility] Branch aspirin 81 2016-0 Yes 81mg Take 1 Tab U nivers mg EC 2-08 by mouth ity of tablet 00:00: daily. [place] [facility] aspirin 81 2016-0 Yes 81mg Take 1 Tab U nivers mg EC 2-08 by mouth ity of tablet 00:00: daily. [place] [facility] Branch aspirin 81 2016-0 Yes 81mg Take 1 Tab U nivers mg EC 2-08 by mouth ity of tablet 00:00: daily. [place] [facility] Branch aspirin 81 2016-0 Yes 81mg Take 1 Tab U nivers mg EC 2-08 by mouth ity of tablet 00:00: daily. [place] [facility] aspirin 81 2016-0 Yes 81mg Take 1 Tab U nivers mg EC 2-08 by mouth ity of tablet 00:00: daily. [place] [facility] aspirin 81 2016-0 Yes 81mg Take 1 Tab U nivers mg EC 2-08 by mouth ity of tablet 00:00: daily. [place] [facility] aspirin 81 2016-0 Yes 81mg Take 1 Tab U nivers mg EC 2-08 by mouth ity of tablet 00:00: daily. [place] [facility] aspirin 81 2016-0 Yes 81mg Take 1 Tab U nivers mg EC 2-08 by mouth ity of tablet 00:00: daily. [address] aspirin 81 2016-0 Yes 81mg Take 1 Tab U nivers mg EC 2-08 by mouth ity of tablet 00:00: daily. [address] aspirin 81 2016-0 Yes 81mg Take 1 Tab U nivers mg EC 2-08 by mouth ity of tablet 00:00: daily. [address] aspirin 81 2016-0 Yes 81mg Take 1 Tab U nivers mg EC 2-08 by mouth ity of tablet 00:00: daily. [address] aspirin 81 2016-0 Yes 81mg Take 1 Tab U nivers mg EC 2-08 by mouth ity of tablet 00:00: daily. [address] aspirin 81 2016-0 Yes 81mg Take 1 Tab U nivers mg EC 2-08 by mouth ity of tablet 00:00: daily. [place] [facility] aspirin 81 2016-0 Yes 81mg Take 1 Tab U nivers mg EC 2-08 by mouth ity of tablet 00:00: daily. [place] [facility] Branch aspirin 81 2016-0 Yes 81mg Take 1 Tab U nivers mg EC 2-08 by mouth ity of tablet 00:00: daily. [place] [facility] aspirin 81 2016-0 Yes 81mg Take 1 Tab U nivers mg EC 2-08 by mouth ity of tablet 00:00: daily. [place] [facility] aspirin 81 2016-0 Yes 81mg Take 1 Tab U nivers mg EC 2-08 by mouth ity of tablet 00:00: daily. [place] [facility] aspirin 81 2016-0 Yes 81mg Take 1 Tab U nivers mg EC 2-08 by mouth ity of tablet 00:00: daily. [place] [facility] aspirin 81 2016-0 Yes 81mg Take 1 Tab U nivers mg EC 2-08 by mouth ity of tablet 00:00: daily. [place] [facility] aspirin 81 2016-0 Yes 81mg Take 1 Tab U nivers mg EC 2-08 by mouth ity of tablet 00:00: daily. [place] [facility] aspirin 81 2016-0 Yes 81mg Take 1 Tab U nivers mg EC 2-08 by mouth ity of tablet 00:00: daily. [place] [facility] aspirin 81 2016-0 Yes 81mg Take 1 Tab U nivers mg EC 2-08 by mouth ity of tablet 00:00: daily. [address] Immunizations Ordered Filled Immunization Date Status Comments [facility] Immunization Name Name SARS-COV-2 COVID-19 2021-04-21 Completed Unive rsity of MODERNA VACCINE 00:00:00 [facility] SARS-COV-2 COVID-19 2021-04-21 Completed Unive rsity of MODERNA VACCINE 00:00:00 [facility] SARS-COV-2 COVID-19 2021-04-21 Completed Unive rsity of MODERNA VACCINE 00:00:00 [facility] SARS-COV-2 COVID-19 2021-04-21 Completed Unive rsity of MODERNA VACCINE 00:00:00 [facility] SARS-COV-2 COVID-19 2021-04-21 Completed Unive rsity of MODERNA VACCINE 00:00:00 [place] [facility] SARS-COV-2 COVID-19 2021-04-21 Completed Unive rsity of MODERNA VACCINE 00:00:00 [place] [facility] SARS-COV-2 COVID-19 2021-04-21 Completed Unive rsity of MODERNA VACCINE 00:00:00 [place] [facility] SARS-COV-2 COVID-19 2021-04-21 Completed Unive rsity of MODERNA VACCINE 00:00:00 [place] [facility] SARS-COV-2 COVID-19 2021-04-21 Completed Unive rsity of MODERNA VACCINE 00:00:00 [place] [facility] SARS-COV-2 COVID-19 2021-04-21 Completed Unive rsity of MODERNA VACCINE 00:00:00 [place] [facility] SARS-COV-2 COVID-19 2020-09-12 Completed Unive rsity of MODERNA VACCINE 00:00:00 [place] [facility] SARS-COV-2 COVID-19 2020-09-12 Completed Unive rsity of MODERNA VACCINE 00:00:00 [place] [facility] SARS-COV-2 COVID-19 2020-09-12 Completed Unive rsity of MODERNA VACCINE 00:00:00 [place] [facility] SARS-COV-2 COVID-19 2020-09-12 Completed Unive rsity of MODERNA VACCINE 00:00:00 [place] [facility] SARS-COV-2 COVID-19 2020-09-12 Completed Unive rsity of MODERNA VACCINE 00:00:00 [place] [facility] SARS-COV-2 COVID-19 2020-09-12 Completed Unive rsity of MODERNA VACCINE 00:00:00 [place] [facility] SARS-COV-2 COVID-19 2020-09-12 Completed Unive rsity of MODERNA VACCINE 00:00:00 [place] [facility] SARS-COV-2 COVID-19 2020-09-12 Completed Unive rsity of MODERNA VACCINE 00:00:00 [place] [facility] SARS-COV-2 COVID-19 2020-09-12 Completed Unive rsity of MODERNA VACCINE 00:00:00 [place] [facility] SARS-COV-2 COVID-19 2020-09-12 Completed Unive rsity of MODERNA VACCINE 00:00:[address] [facility] [facility] [place] SARS-COV-2 COVID-19 2020-09-12 Completed Unive rsity of MODERNA VACCINE 00:00:[address] [facility] [facility] [place] SARS-COV-2 COVID-19 2020-08-16 Completed Unive rsity of MODERNA VACCINE 00:00:00 [facility] [place] [facility] SARS-COV-2 COVID-19 2020-08-16 Completed Unive rsity of MODERNA VACCINE 00:00:[address] [facility] [facility] SARS-COV-2 COVID-19 2020-08-16 Completed Unive rsity of MODERNA VACCINE 00:00:00 [facility] [place] [facility] SARS-COV-2 COVID-19 2020-08-16 Completed Unive rsity of MODERNA VACCINE 00:00:00 [facility] [place] [facility] SARS-COV-2 COVID-19 2020-08-16 Completed Unive rsity of MODERNA VACCINE 00:00:00 [facility] [place] [facility] SARS-COV-2 COVID-19 2020-08-16 Completed Unive rsity of MODERNA VACCINE 00:00:00 [facility] [place] [facility] SARS-COV-2 COVID-19 2020-08-16 Completed Unive rsity of MODERNA VACCINE 00:00:00 [facility] [place] [facility] SARS-COV-2 COVID-19 2020-08-16 Completed Unive rsity of MODERNA VACCINE 00:00:00 [facility] [place] [facility] SARS-COV-2 COVID-19 2020-08-16 Completed Unive rsity of MODERNA VACCINE 00:00:00 [facility] [place] [facility] SARS-COV-2 COVID-19 2020-08-16 Completed Unive rsity of MODERNA VACCINE 00:00:00 [facility] [place] [facility] SARS-COV-2 COVID-19 2020-08-16 Completed Unive rsity of MODERNA VACCINE 00:00:00 [facility] Branch Zoster Vaccine 2020-01-12 Completed University of Recombinant 00:00:00 [facility] Zoster Vaccine 2020-01-12 Completed University of Recombinant 00:00:00 [facility] Zoster Vaccine 2020-01-12 Completed University of Recombinant 00:00:00 [facility] Zoster Vaccine 2020-01-12 Completed University of Recombinant 00:00:00 [facility] Zoster Vaccine 2020-01-12 Completed University of Recombinant 00:00:00 [facility] Zoster Vaccine 2020-01-12 Completed University of Recombinant 00:00:00 [facility] Zoster Vaccine 2020-01-12 Completed University of Recombinant 00:00:00 [facility] Zoster Vaccine 2020-01-12 Completed University of Recombinant 00:00:00 [facility] Zoster Vaccine 2020-01-12 Completed University of Recombinant 00:00:00 [facility] Zoster Vaccine 2020-01-12 Completed University of Recombinant 00:00:00 [facility] Zoster Vaccine 2020-01-12 Completed University of Recombinant 00:00:00 [facility] Zoster Vaccine 2020-01-12 Completed University of Recombinant 00:00:00 [facility] Zoster Vaccine 2020-01-12 Completed University of Recombinant 00:00:00 [facility] Zoster Vaccine 2020-01-12 Completed University of Recombinant 00:00:00 [facility] Zoster Vaccine 2020-01-12 Completed University of Recombinant 00:00:00 [facility] Zoster Vaccine 2020-01-12 Completed University of Recombinant 00:00:00 [facility] Zoster Vaccine 2020-01-12 Completed University of Recombinant 00:00:00 [facility] Zoster Vaccine 2020-01-12 Completed University of Recombinant 00:00:00 [facility] Zoster Vaccine 2020-01-12 Completed University of Recombinant 00:00:00 [facility] Zoster Vaccine 2020-01-12 Completed University of Recombinant 00:00:00 [facility] Zoster Vaccine 2020-01-12 Completed University of Recombinant 00:00:00 [facility] Zoster Vaccine 2020-01-12 Completed University of Recombinant 00:00:00 [facility] Zoster Vaccine 2020-01-12 Completed University of Recombinant 00:00:00 [facility] Zoster Vaccine 2020-01-12 Completed University of Recombinant 00:00:00 [facility] Zoster Vaccine 2020-01-12 Completed University of Recombinant 00:00:00 [facility] Vital Signs Vital Name Observation Time Observation Value Comments Source Systolic blood 2021-05-06 09:30:00 128 mm[Hg] Univer sity of pressure [facility] Diastolic blood 2021-05-06 09:30:00 96 mm[Hg] Unive rsity of pressure [facility] Heart rate 2021-05-06 09:30:00 62 /min [facility] Respiratory rate 2021-05-06 09:30:00 15 /min [facility] [place] [facility] Oxygen saturation in 2021-05-06 08:00:00 94 /min University of Arterial blood by [place] [facility] Pulse oximetry Branch Body temperature 2021-05-06 06:04:00 36.17 Shivani [facility] [place] [facility] Body height 2021-05-06 06:04:00 162.6 cm [facility] [place] [facility] Body weight 2021-05-06 06:04:00 72.576 kg [facility] [place] [facility] BMI 2021-05-06 06:04:00 27.46 kg/m2 [facility] [place] [facility] Systolic blood 2021-03-22 04:30:00 147 mm[Hg] Univer sity of pressure [place] [facility] Diastolic blood 2021-03-22 04:30:00 77 mm[Hg] Unive rsity of pressure [place] [facility] Heart rate 2021-03-22 04:30:00 101 /min [facility] [place] [facility] Respiratory rate 2021-03-22 04:30:00 20 /min [facility] [place] [facility] Oxygen saturation in 2021-03-22 04:30:00 95 /min University of Arterial blood by [place] [facility] Pulse oximetry Branch Body temperature 2021-03-22 04:00:00 37.17 Shivani [facility] [place] [facility] Body weight 2021-03-22 01:57:00 79.243 kg [facility] [place] [facility] BMI 2021-03-22 01:57:00 29.99 kg/m2 [facility] [place] [facility] Systolic blood 2021-03-11 17:00:00 160 mm[Hg] Univer sity of pressure [place] [facility] Diastolic blood 2021-03-11 17:00:00 93 mm[Hg] Unive rsity of pressure [place] [facility] Heart rate 2021-03-11 17:00:00 79 /min [facility] [place] [facility] Respiratory rate 2021-03-11 17:00:00 16 /min [facility] [place] [facility] Oxygen saturation in 2021-03-11 17:00:00 97 /min [facility] of Arterial blood by [place] [facility] Pulse oximetry Branch Body temperature 2021-03-11 13:51:00 37.22 Shivani [facility] [place] [facility] Body weight 2021-03-11 13:51:[address] [facility] BMI 2021-03-11 13:51:00 30.55 kg/m2 [facility] Systolic blood 2021-03-10 15:59:00 155 mm[Hg] Univer sity of pressure [facility] Diastolic blood 2021-03-10 15:59:00 87 [facility]Hg[facility] 2021-03-10 15:54:00 90 /min [facility] Body weight 2021-03-10 15:54:[address] [facility] BMI 2021-03-10 15:54:00 30.55 kg/m2 [facility] Procedures Procedure Date / Time Performing Clinician Source Performed CT ABDOMEN PELVIS W 2021-05-06 07:11:03 Robert Sims [facility] CONTRAST [facility] Branch LIPASE 2021-05-06 06:42:00 Robert Sims [facility] COMP. METABOLIC PANEL 2021-05-06 06:42:00 Robert Sims [facility] ([id number]) [facility] CBC WITH DIFF 2021-05-06 06:42:00 Robert Sims [facility] URINALYSIS 2021-05-06 06:42:00 Robert Sims [facility] NOTICE OF PRIVACY 2021-05-06 05:58:33 Doctor Unassigned, No [facility] Name [facility] CONSENT/REFUSAL FOR 2021-05-06 05:58:02 Doctor Unassigned, No [facility] [place] DI[facility]NOSIS AND TREATMENT [facility] SARS-COV-2 COVID-19 2021-04-21 15:54:04 Doctor Unassigned, No [facility] [place] VACCINE,0.5ML,IM Name [facility] (MODERNA) AUTHORIZATION FOR 2021-04-14 05:01:00 Doctor Unassigned, No [place] [facility] RELEASE OF PHI Name [facility] URINALYSIS 2021-03-22 04:37:00 Kaela Amador [facility] CT ABDOMEN PELVIS W 2021-03-22 03:21:23 Kaela Amador [facility] CONTRAST [facility] Branch CT CHEST PULMONARY 2021-03-22 03:21:23 Kaela Amador [facility] ANGIOGRAM [facility] Branch COVID-19 (ID NOW RAPID 2021-03-22 02:23:00 Kaela Amador [facility] TESTING) Medical Branch TROPONIN I 2021-03-22 02:21:00 Kaela Amador [facility] HEPATIC FUNCTION PANEL 2021-03-22 02:21:00 [id number] (ALB,T.PRO,BILI Medical Branch T,BU/BC,ALT,AST,ALK PHOS) BASIC METABOLIC PANEL 2021-03-22 02:21:00 Kaela Amador [facility] (NA, K, CL, CO2, Medical Branch GLUCOSE, BUN, CREATININE, CA) CBC WITH DIFF 2021-03-22 02:21:00 Kaela Amador [facility] LACTIC ACID WHOLE BLOOD 2021-03-22 02:20:00 [facility] OF [facility]Y 2021-03-22 01:52:49 Doctor Unassigned, No [facility] PRACTICES Name [place] [facility] CONSENT/REFUSAL FOR 2021-03-22 01:51:07 [facility] REFERRAL- 2021-03-16 05:01:00 Doctor Unassigned, No [facility] REQUEST/RESPONSE Name [facility] NM MYOCARDIUM PERFUSION 2021-03-15 15:40:00 Tk [facility] STRESS AND REST [facility] NUCLEAR STRESS TEST 2021-03-15 15:40:00 Tk [facility] CARDIOLOGY (DO NOT Medical Branc h SCHED) NUCLEAR STRESS TEST 2021-03-15 15:40:00 Tk [facility] CARDIOLOGY (DO NOT Medical Branc h SCHED) NM MYOCARDIUM PERFUSION 2021-03-15 15:40:00 [facility] STRESS AND REST Medical Branch NM MYOCARDIUM PERFUSION 2021-03-15 15:40:00 Tk [facility] STRESS AND REST Medical Branch NUCLEAR STRESS TEST 2021-03-15 15:40:00 Tk [facility] CARDIOLOGY (DO NOT Medical Branc h SCHED) NM MYOCARDIUM PERFUSION 2021-03-15 15:40:00 Tk [facility] STRESS AND REST Medical Branch NUCLEAR STRESS TEST 2021-03-15 15:40:00 Tk [facility] CARDIOLOGY (DO NOT Medical Branc h SCHED) TROPONIN I 2021-03-11 15:32:00 Kaela Amador [facility] XR CHEST 1 VW 2021-03-11 14:12:57 Kaela Amador [facility] TROPONIN I 2021-03-11 14:01:00 Kaela Amador [facility] COMP. METABOLIC PANEL 2021-03-11 14:01:00 Kaela Amador [facility] ([id number]) Medical [place] CBC WITH DIFF 2021-03-11 14:01:00 Kaela Amador [facility] N-TERMINAL PRO-BNP 2021-03-11 14:01:00 Kaela Amador [facility] COVID-19 (ID NOW RAPID 2021-03-11 14:01:00 Kaela Amador [facility] TESTING) [facility] CONSENT/REFUSAL FOR 2021-03-11 13:48:12 Doctor Unassigned, No [facility] PATIENT QUESTIONNAIRE 2021-03-02 05:01:00 Doctor Unassigned, No [facility] Name [facility] Encounters Start End Encounter Admission Attending Care Care Encounter Source Date/Time Date/Time Type Type Clinicians Facility Department ID 2021-04-11 Emergency [facility] [id number] Univers 06:18:23 ity [facility] 2021-04-11 Emergency [facility] [id number] Univers 03:17:55 ity [facility] 2021-04-11 Emergency [facility] [id number] Univers 02:25:43 ity [facility] 2021-04-07 Emergency [facility] [id number] Univers 22:11:45 ity [facility] 2021-07-21 2021-07-21 Outpatient R TK, [facility] [id number] -[id number] Univers 09:40:00 09:40:00 MARLI [id number] ity o f [facility] 2021-06-12 2021-06-12 Outpatient TK, [facility] [id number] -[id number] Univers 10:40:00 10:40:00 MARLI [id number] ity o f [facility] 2021-05-29 2021-05-29 Telephone [facility] 1.2.840.114 [id number] Univers 00:00:00 00:00:00 [facility] [id number] it y of [place] 4.2.7.2.686 Rubén as CM?BLEA [phone] [address] OFFICE [facility] 2021-05-26 2021-05-26 Telephone [facility] 1.2.840.114 [id number] Univers 00:00:00 00:00:00 Paul HEALTH [id number] it y of [place] 4.2.7.2.686 Rubén as CM?BLEA [phone] [address] OFFICE [facility] 2021-05-23 2021-05-23 [facility] [id number] Univers 00:00:00 00:00:00 Devangheavenly [place] [id number] it[place] of [place] [phone] [facility] 059 [facility] 2021-05-22 2021-05-22 [facility] 1.2.840.114 [id number] Univers 00:00:00 00:00:00 Paul [facility] [id number] i ty of [place] [phone] [address] 2021-05-19 2021-05-19 [facility] 1.2.360.276 [id number] Univers 00:00:00 00:00:00 [facility] [place] [id number] it[facility] 4.2.7.2.686 [place] [facility] [phone] [place] opal CONTRERAS 059 [facility] 2021-05-19 2021-05-19 Telephone [facility] 1.2.840.114 [id number] Univers 00:00:00 00:00:00 [facility] [id number] it y of [place] 4.2.7.2.686 Rubén as CM?BLEA [phone] [place] opal [address] OFFICE [facility] 2021-05-05 2021-05-06 Emergency X [facility] ERT [id number] Univers 23:59:00 04:35:00 POOJACALVIN ity [facility] 2021-05-05 2021-05-06 Emergency [facility] hospital [id number] Univers 23:59:00 04:35:00 Robert Shameka [place] [id number] ity of [place] 4.2.7.2.[place] [phone] [address] 2021-05-02 2021-05-02 Telephone [facility] 1.2.840.114 [id number] Univers 00:00:00 00:00:00 [facility] [id number] it y of [place] 4.2.7.2.686 Rubén as CM?BLEA [phone] [address] 2021-05-01 2021-05-01 Telephone [facility] 1.2.840.114 [id number] Univers 00:00:00 00:00:00 [facility] [id number] it y of [place] 4.2.7.2.686 Rubén as CM?BLEA [phone] [address] 2021-04-21 2021-04-21 Imm/Inj Vaccine, Ang Db Cbc [facility] 1. 2.840.114 [id number] Univers 09:25:25 09:35:25 Visit Marli Rosa [facility] [id number] ity of [place] 4.2.7.2.686 Rubén as CM?BLEA [phone] [address] MEDICAL OFFICE [facility] 2021-04-21 2021-04-21 Outpatient R [facility] [id number] -[id number] Univers 09:20:00 09:20:00 [id number] ity [facility] 2021-04-21 2021-04-21 Outpatient R CHU, [facility] [id number] Univers 09:20:00 09:20:00 MARLI ity [facility] 2021-04-18 2021-04-18 Telephone [facility] 1.2.840.114 [id number] Univers 00:00:00 00:00:00 [facility] [id number] it y of [place] 4.2.7.2.686 Rubén as CM?BLEA [phone] [address] OFFICE [facility] 2021-04-14 2021-04-14 Telephone [facility] 1.2.840.114 [id number] Univers 00:00:00 00:00:00 [facility] [id number] it y of [place] 4.2.7.2.686 Rubén as CM?BLEA [phone] [address] OFFICE [facility] 2021-04-14 2021-04-14 Orders Doctor DIONI 1.2.840.114 [id number] Univers 00:00:00 00:00:00 Only Unassigned, MYRNA 350.1.13.10 ity of [place] [facility] 4.2.7.2.686 Rubén as [phone] [address] 2021-04-13 2021-04-13 Telephone [facility] 1.2.840.114 [id number] Univers 00:00:00 00:00:00 [facility] 350.1.13.10 it y of [place] 4.2.7.2.686 Rubné as CM?BLEA [phone] [address] OFFICE [facility] 2021-03-24 2021-03-24 Telephone [facility] 1.2.840.114 [id number] Univers 00:00:00 00:00:00 [facility] 350.1.13.10 it y of [place] [facility] 4.2.7.2.686 Rubén as Cm?Blea [phone] [place] dical kney [address] [place] [facility] 2021-03-21 2021-03-22 Emergency [facility] 1.2.840.114 [id number] Univers 21:04:00 00:31:00 Kaela Ocampo 350.1.13.10 ity of [place] 4[place]2.7.2.[place] [phone] [facility] 084 Branch 2021-03-22 2021-03-22 Telephone [facility] 1.2.054.930 [id number] Univers 00:00:00 00:00:00 Marli Ocampo 350.1.13.10 ity of [place] 4.2.7.2.[place] [phone] [place] dical george 059 [facility] 2021-03-16 2021-03-16 Orders Doctor DIONI 1.2.840.114 [id number] Univers 00:00:00 00:00:00 Only Unassigned, MYRNA 350.1.13.10 ity of [place] [facility] 4.2.7.2.686 Rubén as [phone] [facility] 009 Branch 2021-03-15 2021-03-15 [facility] 1.2.840.114 [id number] Univers 07:58:08 23:59:00 Encounter Marli Ocampo 350.1.13.10 ity of [place] 4[place]2.7.2.[place] [phone] [facility] 805 Branch 2021-03-15 2021-03-15 Outpatient COUNTS INCLUDE 234 [facility] AT [facility] [id number] Univers 08:00:00 08:00:00 MARLI [id number] ity o f [facility] 2021-03-15 2021-03-15 [facility] 1.2.840.114 [id number] Univers 07:57:44 07:57:44 Encounter Marli Ocampo 350.1.13.10 ity of [place].2.[place] [phone] [facility] 8[address] [place] 2021-03-15 2021-03-15 [facility] 1.2.840.114 [id number] Univers 07:57:17 07:57:17 Encounter Devanghevaenly Terrence 350.1.13.10 [place]y of [place] 4.2.7.2.686 [facility] [phone] [facility] 8[address] [place] 2021-03-15 2021-03-15 [facility] 1.2.840.114 [id number] Univers 07:55:23 07:56:00 Encounter Marli Ocampo 350.1.13.10 ity of [place] 4.2.7.2.686 [facility] [phone] [address] 2021-03-15 2021-03-15 Outpatient COUNTS INCLUDE 234 BEDS AT THE [facility] [id number] Univers 00:00:00 00:00:00 MARLI mullen o f [facility] 2021-03-11 2021-03-11 Emergency [facility] 1.2.840.114 [id number] Univers 08:48:00 12:29:00 Kaela Ocampo 350.1.13.10 ity of [place] 4.[address] [place] [address] [phone] [facility] 084 [place] 2021-03-10 2021-03-10 Outpatient Junie BARAHONA [facility] [id number] Univers 17:30:00 17:30:00 PAUL [id number] ity [facility] 2021-03-10 2021-03-10 Office [facility] 1.2.840.114 [id number] Univers 10:50:01 11:15:43 Visit [facility] 350.1.13.10 it y of [place] 4.2.7.2.686 Rubén as Cm?Blea [phone] Tx opal morgan [address] [place] [address] Medical Office Building 2021-03-10 2021-03-10 Outpatient Junie BARAHONA [facility] [id number] Univers 11:00:00 11:00:00 PAUL mullen [facility] 2021-03-07 2021-03-07 Outpatient R JUN [facility] [id number] Univers 08:00:00 08:00:00 PAUL [id number] ity [facility] 2021-03-07 2021-03-07 Outpatient R JUN [facility] [id number] Univers 08:00:00 08:00:00 PAUL ity [facility] 2021-03-02 2021-03-02 Outpatient R [facility] [id number] Univers 08:30:00 08:30:00 [id number] ity [facility] 2021-03-02 2021-03-02 Outpatient R [facility] [id number] Univers 08:30:00 08:30:00 ity [facility] 2021-03-02 2021-03-02 Orders Doctor DIONI 1.2.840.114 [id number] Univers 00:00:00 00:00:00 Only Unassigned, MYRNA 350.1.13.10 ity of [place] [facility] 4.2.7.2.686 Rubén as [phone] [address] 2021-02-27 2021-02-27 Outpatient R TK [facility] [id number] Univers 08:40:00 08:40:00 MARLI [id number] ity o [facility] 2021-02-27 2021-02-27 [facility] [id number] Univers 08:40:00 08:40:00 MARLI ity o f [facility] 2021-02-07 2021-02-07 Outpatient JUN [facility] [id number] Univers 10:00:00 10:00:00 PAUL [id number] ity [facility] 2021-02-07 2021-02-07 [facility] [id number] Univers 10:00:00 10:00:00 PAUL [facility] 2021-01-31 2021-01-31 Outpatient R BHANUDEBRAADILSON [facility] [id number] Univers 10:45:00 10:45:00 PAUL [id number] [facility] 2021-01-31 2021-01-31 [facility] [id number] Univers 10:45:00 10:45:00 PAUL [facility] 2021-01-10 2021-01-10 Outpatient R TK, [facility] [id number] Univers 10:40:00 10:40:00 MARLI anguloy o [facility] 2021-01-10 2021-01-10 Outpatient R TK, [facility] [id number] Univers 10:40:00 10:40:00 MARLI [id number] ity o [facility] 2020-12-16 2020-12-16 Outpatient R JUN, [facility] [id number] Univers 16:15:00 16:15:00 PAUL [id number] [facility] 2020-12-16 2020-12-16 Outpatient R JUN, [facility] [id number] Univers 16:15:00 16:15:00 PAUL [facility] 2020-09-26 2020-09-26 Outpatient R TK, [facility] [id number] Univers 09:20:00 09:20:00 MARLI [id number] ity o [facility] 2020-07-13 2020-07-13 Outpatient R TK, [facility] [id number] Univers 11:20:00 11:20:00 MARLI [id number] ity o [facility] 2020-07-13 2020-07-13 Outpatient R TK, [facility] [id number] Univers 11:20:00 11:20:00 BILLNAZARIO mullen o [facility] 2020-07-08 2020-07-08 Outpatient R NICHELLE ARAGON [facility] [id number] Univers 09:00:00 09:00:00 NICHELLE ARAGON [id number] i ty of [facility] 2020-07-08 2020-07-08 Outpatient R NICHELLE ARAGON [facility] [id number] Univers 09:00:00 09:00:00 NICHELLE ARAGON i ty of [facility] 2020-05-19 2020-05-19 Outpatient R [facility] [id number] Univers 08:00:00 08:00:00 ity [facility] 2020-05-19 2020-05-19 Outpatient R ALICIA, [facility] [id number] Univers 08:00:00 08:00:00 SONI ity of [facility] 2020-05-16 2020-05-16 Outpatient R [facility] [id number] Univers 08:45:00 08:45:00 ity of [facility] 2020-05-16 2020-05-16 Outpatient R [facility] [id number] Univers 08:45:00 08:45:00 ity of [facility] 2020-04-22 2020-04-22 Outpatient R [facility] [id number] Univers 09:00:00 09:00:00 [id number] ity of [facility] 2020-04-22 2020-04-22 Outpatient R [facility] [id number] Univers 09:00:00 09:00:00 ity of [facility] 2020-04-20 2020-04-20 Outpatient R JUN, [facility] [id number] Univers 09:15:00 09:15:00 PAUL [id number] ity [facility] 2020-04-20 2020-04-20 Outpatient R SUMITADILSON, [facility] [id number] Univers 09:15:00 09:15:00 PAUL [facility] 2020-04-12 2020-04-12 Outpatient R TK, [facility] [id number] Univers 11:20:00 11:20:00 MARLI ity o f [facility] 2020-04-12 2020-04-12 Outpatient R TK, [facility] [id number] Univers 11:20:00 11:20:00 MARLI anguloy o f [facility] 2020-03-23 2020-03-23 Outpatient R SUMITKA, [facility] [id number] Univers 09:00:00 09:00:00 PAUL [id number] ity [facility] 2020-03-23 2020-03-23 Outpatient R SUMITKA, [facility] [id number] Univers 09:00:00 09:00:00 PAUL ity [facility] 2019-09-23 2019-09-23 Outpatient R TK, [facility] [id number] Univers 09:40:00 09:40:00 MARLI [id number] ity o f [facility] 2019-09-23 2019-09-23 Outpatient R TK [facility] [id number] Univers 09:40:00 09:40:00 MARLI anguloy o f [facility] 2019-09-16 2019-09-16 Outpatient R [facility] [id number] Univers 09:00:00 09:00:00 ity of [facility] 2019-09-16 2019-09-16 Outpatient R TK [facility] [id number] Univers 09:00:00 09:00:00 BILLALICJAHEAVENLY anguloy o f [facility] Results Test Description Test Time Test Comments [...] 32.2 g/dL 31.2-35.0 RDW-SD (test code = 86149-2) 50.2 fL 38.5-51.6 RDW-CV (test code = 788-0) 16.1 % 12.1-15.4 H PLT (test code = 777-3) See_Comment [Au tomated message] The system which ge nerated this result transmit maria e reference range: 150 - 32 8 10*3/?L. The reference range was not used to interpret th is result as normal/abnormal . MPV (test code = 64558-3) 9.8 fL 9.8-13.0 NRBC/100 WBC (test code = See_Comment [ Automated message] The 1274833013) system which ge nerated this result transmit maria e reference range: 0.0 - 10 .0 /100 WBCs. The reference r nishant was not used to interpr et this result as normal/abnor mal. NRBC x10^3 (test code = <0.01 See_Comment [Au tomated message] The 2122435606) system which ge nerated this result transmit maria e reference range: 10*3/?L. The reference range was not u sed to interpret this result as normal/abnormal . GRAN MAT (NEUT) % (test code 96.2 % = 770-8) IMM GRAN % (test code = 1.80 % 3466677489) LYMPH % (test code = 736-9) 1.6 % MONO % (test code = 5905-5) 0.2 % EOS % (test code = 713-8) 0.0 % BASO % (test code = 706-2) 0.2 % GRAN MAT x10^3(ANC) (test 21.81 10*3/uL 1.99-6.95 H code = 9819181947) IMM GRAN x10^3 (test code = 0.40 10*3/uL 0.00-0.06 H 2435709729) LYMPH x10^3 (test code = 0.36 10*3/uL 1.09-3.23 L 731-0) MONO x10^3 (test code = 0.05 10*3/uL 0.36-1.02 L 742-7) EOS x10^3 (test code = <0.03 0.06-0.53 L 711-2) BASO x10^3 (test code = 0.05 10*3/uL 0.01-0.09 704-7) Lab Interpretation (test Abnormal code = 99457-1) [facility]. METABOLIC PANEL (30337)2021-05-06 07:35:17 Test Item Value Reference Range Interpretation Comments NA (test code = 135 mmol/L 135-145 7161577523) K (test code = 5.0 mmol/L 3.5-5.0 5939208567) CL (test code = 106 mmol/L 98-108 3466692074) CO2 TOTAL (test code = 22 mmol/L 23-31 L 2461827535) AGAP (test code = 2-16 3325273353) BUN (test code = 53 mg/dL 7-23 H 7780533619) GLUCOSE (test code = 114 mg/dL 70-110 H 0864430070) CREATININE (test code = 0.83 mg/dL 0.60-1.25 2854428248) TOTAL BILI (test code = 1.3 mg/dL 0.1-1.1 H 5392461199) CALCIUM (test code = 12.0 mg/dL 8.6-10.6 H 9352071273) T PROTEIN (test code = 6.5 g/dL 6.3-8.2 8564365047) ALBUMIN (test code = 3.0 g/dL 3.5-5.0 L 6909486637) ALK PHOS (test code = 261 U/L 34-122 H 2357922739) ALTv (test code = 61 U/L 5-50 H 1742-6) AST(SGOT) (test code = 109 U/L 13-40 H 5720609200) eGFR (test code = mL/min/1.73m2 5384320550) ANTON (test code = ANTON) Association of [...] tests). Lab Interpretation Abnormal (test code = 91973-2) [facility]59 Test Item Value Reference Range Interpretation Comments LIPASE (test code = 0865812005) 482 U/L 0-220 H Lab Interpretation (test code = Abnormal 06061-5) [facility] [id number] 03:00:45 Test Item Value Reference Interpretation Comments Range TROPONIN I (test 0.002 ng/mL See_Comment [Automated code = 6656784292) message] The system which generated this result [...] biotin. Lab Interpretation Normal (test code = 32055-5) [facility] (NA, K, CL, CO2, GLUCOSE, BUN, CREATININE, CA)2021-03-22 02:49:26 Test Item Value Reference Range Interpretation Comments NA (test code = 135 mmol/L 135-145 8197618982) K (test code = 4.7 mmol/L 3.5-5.0 7508300151) CL (test code = 101 mmol/L 98-108 3117425763) CO2 TOTAL (test code 24 mmol/L 23-31 = 5635577318) AGAP (test code = 2-16 4992344268) BUN (test code = 15 mg/dL 7-23 8375347418) GLUCOSE (test code = 103 mg/dL 70-110 3364385068) CREATININE (test code 0.95 mg/dL 0.60-1.25 = 3172374298) CALCIUM (test code = 10.0 mg/dL 8.6-10.6 7873429330) eGFR (test code = mL/min/1.73m2 6070879104) ANTON (test code = ANTON) Association of [...] or urine or abnormalities in imaging tests). [facility] Branch[facility]ATIC FUN[facility] PANEL (58304) (ALB,T.PRO,BILI T,BU/BC,ALT,AST,ALK PHOS)2021-03-22 02:49:26 Test Item Value Reference Range Interpretation Comments TOTAL BILI (test code = 7307058858) 0.7 mg/dL 0.1-1.1 BILI UNCON (test code = 1030159906) 0.4 mg/dL 0.1-1.1 BILI CONJ (test code = 3788950370) 0.0 mg/dL 0.0-0.3 T PROTEIN (test code = 9939456150) 7.5 g/dL 6.3-8.2 ALBUMIN (test code = 4782060520) 4.1 g/dL 3.5-5.0 ALK PHOS (test code = 5070272265) 248 U/L 34-122 H ALTv (test code = 1742-6) 46 U/L 5-50 AST(SGOT) (test code = 9564947843) 70 U/L 13-40 H Lab Interpretation (test code = Abnormal 51275-3) [facility] WITH [id number] 02:39:25 Test Item Value Reference Range Interpretation Comments WBC (test code = See_Comment H [Automated 9090-2) message] The system which generated this result transmit maria e reference range : 4.20 - 10.70 10*3/?L. The reference range was not used to interpret this result as normal/abnormal . RBC (test code = See_Comment [Automated 809-8) message] The system which generated this result [...] RDW-SD (test code = 42.5 fL 38.5-51.6 08477-5) RDW-CV (test code = 13.3 % 12.1-15.4 788-0) PLT (test code = See_Comment H [Automated 777-3) message] The system which generated this result transmit maria e reference range : 150 - 328 10*3/ ?L. The reference range was not u sed to interpret th is result as normal/abnormal . MPV (test code = 9.4 fL 9.8-13.0 L 46969-7) NRBC/100 WBC (test See_Comment [Automat ed code = 6641959294) message] The system which generated this result transmit maria e reference range : 0.0 - 10.0 /100 WBCs. The reference range was not used to interpret this result as normal/abnormal . NRBC x10^3 (test code <0.01 See_Comment [Auto mated = 4472121374) message] The system which generated this result transmit maria e reference range : 10*3/?L. The reference range was not used to interpret this result as normal/abnormal . GRAN MAT (NEUT) % 76.7 % (test code = 770-8) IMM GRAN % (test code 0.80 % = 2962947130) LYMPH % (test code = 10.3 % 736-9) MONO % (test code = 9.6 % 5905-5) EOS % (test code = 1.9 % 713-8) BASO % (test code = 0.7 % 706-2) GRAN MAT x10^3(ANC) 11.05 10*3/uL 1.99-6.95 H (test code = 6207259345) IMM GRAN x10^3 (test 0.11 10*3/uL 0.00-0.06 H code = 9691490344) LYMPH x10^3 (test code 1.48 10*3/uL 1.09-3.23 = 731-0) MONO x10^3 (test code 1.38 10*3/uL 0.36-1.02 H = 742-7) EOS x10^3 (test code = 0.27 10*3/uL 0.06-0.53 711-2) BASO x10^3 (test code 0.10 10*3/uL 0.01-0.09 H = 704-7) Lab Interpretation Abnormal (test code = 84433-0) [facility] Whole [id number] 02:28:02 Test Item Value Reference Range Interpretation Comments LACTIC ACID (test code = 1.48 mmol/L 0.50-2.20 [id number]) Lab Interpretation (test code = Normal 49357-5) [facility] [id number] 16:51:36 Test Item Value Reference Interpretation Comments Range TROPONIN I (test 0.003 ng/mL See_Comment [Automated code = [id number]) message] The system which generated this result [...] biotin. Lab Interpretation Normal (test code = 33970-9) [facility] [id number] 14:51:08 Test Item Value Reference Interpretation Comments Range TROPONIN I (test 0.003 ng/mL See_Comment [Automated code = [id number]) message] The system which generated this result [...] biotin. Lab Interpretation Normal (test code = 99671-5) [id number] 14:47:52 Test Item Value Reference Range Interpretation Comments NT-proBNP (test code 1110 pg/mL See_Comment H [Autom ated = [id number]) message] The system which generated this result transmitted reference range : <=125. The reference range was not used to interpret this result as normal/abnormal . ANTON (test code = ANTON) Biotin has been reported to cause a negative bias, interpret results relative to patient's use of biotin. Lab Interpretation Abnormal (test code = 67940-4) [facility] [facility]OL[facility] PAN[facility] ([id number])2021-03-11 14:39:29 Test Item Value Reference Range Interpretation Comments NA (test code = 139 mmol/L 135-145 9105783185) K (test code = 4.1 mmol/L 3.5-5.0 0331869646) CL (test code = 103 mmol/L 98-108 0807105400) CO2 TOTAL (test code = 27 mmol/L 23-31 5284886555) AGAP (test code = 2-16 8986438208) BUN (test code = 19 mg/dL 7-23 9526376197) GLUCOSE (test code = 110 mg/dL 70-110 2293993541) CREATININE (test code = 1.03 mg/dL 0.60-1.25 4861422638) TOTAL BILI (test code = 0.8 mg/dL 0.1-1.8 7469249134) CALCIUM (test code = 9.7 mg/dL 8.6-10.6 2516780081) T PROTEIN (test code = 7.1 g/dL 6.3-8.2 8328152726) ALBUMIN (test code = 4.0 g/dL 3.5-5.0 6230210474) ALK PHOS (test code = 187 U/L 34-122 H 3032019380) ALTv (test code = 30 U/L 5-50 1742-6) AST(SGOT) (test code = 57 U/L 13-40 H 0422464189) eGFR (test code = mL/min/1.73m2 2301334904) ANTON (test code = ANTON) Association of [...] tests). Lab Interpretation Abnormal (test code = 45854-6) [facility] WITH [id number] 14:19:46 Test Item Value Reference Range Interpretation Comments WBC (test code = See_Comment H [Automated 0073-2) message] The sy stem which generated this result transmitted reference range : 4.20 - 10.70 10*3/?L. The reference range was not used to interpret this result as normal/abnormal . RBC (test code = See_Comment [Automated 051-5) message] The sy stem which generated this [...] RDW-SD (test code = 42.9 fL 38.5-51.6 51965-0) RDW-CV (test code = 13.1 % 12.1-15.4 788-0) PLT (test code = See_Comment [Automated 777-3) message] The sy stem which generated this result transmitted reference range : 150 - 328 10*3/ ?L. The reference r nishant was not used to interpret this result as normal/abnormal . MPV (test code = 9.6 fL 9.8-13.0 L 43146-9) NRBC/100 WBC (test See_Comment [Automat ed code = 6816810459) message] The system which generated this result transmitted reference range : 0.0 - 10.0 /100 WBCs. The refer ence range was not u sed to interpret th is result as normal/abnormal . NRBC x10^3 (test code <0.01 See_Comment [Auto mated = 7630435695) message] The s ystem which generated this result transmitted reference range : 10*3/?L. The reference range was not used to interpret this result as normal/abnormal . GRAN MAT (NEUT) % 74.3 % (test code = 770-8) IMM GRAN % (test code 0.80 % = 2014849892) LYMPH % (test code = 12.3 % 736-9) MONO % (test code = 8.9 % 5905-5) EOS % (test code = 3.1 % 713-8) BASO % (test code = 0.6 % 706-2) GRAN MAT x10^3(ANC) 8.38 10*3/uL 1.99-6.95 H (test code = 3788151259) IMM GRAN x10^3 (test 0.09 10*3/uL 0.00-0.06 H code = 5570991269) LYMPH x10^3 (test code 1.39 10*3/uL 1.09-3.23 = 731-0) MONO x10^3 (test code 1.00 10*3/uL 0.36-1.02 = 742-7) EOS x10^3 (test code = 0.35 10*3/uL 0.06-0.53 711-2) BASO x10^3 (test code 0.07 10*3/uL 0.01-0.09 = 704-7) Lab Interpretation Abnormal (test code = 75016-5) [facility]"
[2021-05-31 11:28] LABS: Protime INR 1.51
[2021-05-31 11:48] LABS: BUN Blood Urea Nitrogen 33 mg/dL (7-18); Bicarbonate 23 mmol/L (21-32); Glucose Level 94 mg/dL (74-106); Sodium Level 140 mmol/L (136-145)
[2021-05-31 11:50] LABS: Potassium 3.5 mmol/L (3.5-5.1)
--- NOTE | 2021-05-31 12:13 | RAD REPORT ---
EXAM DESCRIPTION: US - Extrem Venous W Compress Keith - 05/31/2021 11:53 am CLINICAL HISTORY: Pain;Swelling Bilateral leg edema and swelling. COMPARISON: No comparisons TECHNIQUE: Real-time sonographic interrogation of the left and right lower extremity deep venous sys tems was performed. FINDINGS: There is thrombus present in the right femoral vein to the level of the right popliteal ve in. No left-sided thrombus is present. IMPRESSION: Positive for right lower extremity DVT.
[2021-05-31] MEDS ORDERED: ENOXAPARIN 80 MG/0.8 ML SQ ONE (12:22)
--- NOTE | 2021-05-31 13:51 | EDPHYS ---
Physician Documentation [facility] Name: Sesar Alcantara Age: 66 yrs Sex: Male : 1955 Arrival Date: 05/31/2021 Time: 10:31 Bed 13 Private MD: ED Physician Jigar Larry HPI: 05/31 11:57 This 66 yrs old Male presents to ER via Wheelchair with complaints of Knee jr8 swelling. 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 Patient has had mild swelling in both lower extremities in the past secondary to his cancer but now has significant worsening to the right leg. Stated he got to the point now where he cannot control the pain to the right leg. Denies fevers or any other symptoms at this time.. Historical: - Allergies: 10:45 No Known Allergies; tw2 - Home Meds: 10:45 pantoprazole 40 mg oral TbEC 1 tab once daily [Active]; hydrocodone-acetaminophen tw2 10-325 mg oral tab 1 tab every 12 hours [Active]; furosemide 40 mg oral tab 1 tab once daily [Active]; - PMHx: 10:45 Hypercholesterolemia; Hypertensive disorder; liver cancer; Stage IV bile duct CA; tw2 - PSHx: 10:45 Port a Cath, right upper chest for chemo; tw2 - Immunization history:: Client reports receiving the 2nd dose of the Covid vaccine, and booster received. Flu vaccine is up to date. - Social history:: Smoking status: Patient denies any tobacco usage or history of. ROS: 11:57 Eyes: Negative for injury, pain, redness, and discharge, ENT: Negative for injury, jr8 pain, and discharge, Neck: Negative for injury, pain, and swelling, Cardiovascular: Negative for chest pain, palpitations. Positive for edema Respiratory: Negative for shortness of breath, cough, wheezing, and pleuritic chest pain, Abdomen/GI: Negative for abdominal pain, nausea, vomiting, diarrhea, and constipation, Back: Negative for injury and pain, Skin: Negative for injury, rash, and discoloration, Neuro: Negative for headache, weakness, numbness, tingling, and seizure. 11:57 MS/extremity: Positive for pain, swelling, of the right leg. Exam: 11:57 Constitutional: This is a well developed, well nourished patient who is awake, alert, jr8 and in no acute distress. Cardiovascular: Regular rate and rhythm with a normal S1 and S2. No gallops, murmurs, or rubs. Normal PMI, no JVD. No pulse deficits. Respiratory: Lungs have equal breath sounds bilaterally, clear to auscultation and percussion. No rales, rhonchi or wheezes noted. No increased work of breathing, no retractions or nasal flaring. Abdomen/GI: Soft, non-tender, with normal bowel sounds. No distension or tympany. No guarding or rebound. No evidence of tenderness throughout. Skin: Warm, dry with normal turgor. Normal color with no rashes, no lesions, and no evidence of cellulitis. Neuro: Awake and alert, GCS 15, oriented to person, place, time, and situation. Cranial nerves II-XII grossly intact. Motor strength 5/5 in all extremities. Sensory grossly intact. 11:57 Musculoskeletal/extremity: Extremities: grossly normal except: noted in the right leg: Patient has bilateral pitting edema to both legs but significantly more noted to right leg when compared to the left side. There is also circumferential difference between the right leg and left leg. Right leg greater than left leg. Pulses still present to the lower extremities with normal sensation. No erythema noted. Mild tenderness to palpation to the right lower extremity.. Vital Signs: 10:43 BP 107 / 80; Pulse 96; Resp 12; Temp 98(TE); Pulse Ox 100% on R/A; Weight 74.39 kg (R); tw2 Height 5 ft. 4 in. (162.56 cm) (R); Pain 9/10; 12:13 BP 108 / 83; Pulse 103; Resp 19; Pulse Ox 100% on R/A; tw2 14:32 BP 108 / 71; Pulse 96; Resp 21; Pulse Ox 98% on R/A; ld1 15:41 BP 100 / 66; Pulse 95; Resp 14; Pulse Ox 97% on R/A; ld1 10:43 Body Mass Index 28.15 (74.39 kg, 162.56 cm) tw2 MDM: 10:45 Patient medically screened. [facility] 11:57 Data reviewed: vital signs, nurses notes, lab test result(s), radiologic studies, jr8 ultrasound. Data interpreted: Pulse oximetry: on room air is 100 %. Interpretation: normal. Counseling: I had a detailed discussion with the patient and/or guardian regarding: the historical points, exam findings, and any diagnostic results supporting the discharge/admit diagnosis, lab results, radiology results, the need for further work-up and treatment in the hospital. 05/31 11:03 Order name: CBC with Diff jr8 05/31 11:03 Order name: Basic Metabolic Panel 8 05/31 11:04 Order name: CBC with Automated Diff EDMS 05/31 11:04 Order name: Basic Metabolic Panel; Complete Time: 12:02 EDMS 05/31 11:04 Order name: Protime (+inr); Complete Time: 11:46 8 05/31 11:04 Order name: Ptt, Activated; Complete Time: 11:46 [facility] 05/31 11:03 Order name: IV; Complete Time: 11:29 [facility] 05/31 11:03 Order name: US Extremity Venous W Compression Keith; Complete Time: 12:42 8 05/31 11:15 Order name: EKG - Nurse/Tech; Complete Time: 11:15 5 05/31 15:19 Order name: COVID-19 SARS RT PCR (Document "Date of Onset" if Symptomatic) bd Administered Medications: 13:04 Drug: Lovenox (enoxaparin) 1 mg/kg Route: Sub-Q; Site: left lower abdomen; tw2 13:23 Follow up: Response: No adverse reaction tw2 Disposition: 18:30 Co-signature as Attending Physician, Jigar Larry MD I agree with the assessment and kdr plan of care. Disposition Summary: 05/31/21 13:50 Hospitalization Ordered Hospitalization Status: Inpatient Admission [facility] Provider: Andrew Trivedi Location: Telemetry/MedSurg (Inpatient) [facility] Condition: Stable [facility] Problem: new jr8 Symptoms: are unchanged jr8 Bed/Room Type: Standard [facility] Room Assignment: 217(05/31/21 16:00) bd Diagnosis - Acute embolism and thrombosis of unspecified deep veins of right lower extremity jr Forms: - Medication Reconciliation Form jr8 - SBAR form jr8 Signatures: Dispatcher [employer] EDMS Kasandra, Sia bd Rittger, Jigar, MD MD kdr Roszak, Musa, PA PA jr8 Erica Gould RN RN 2 Alexa Oro [facility] Corrections: (The following items were deleted from the chart) 16:00 13:50 ben bower
--- NOTE | 2021-05-31 13:51 | ER ---
Nurse's Notes [facility] Name: Sesar Alcantara Age: 66 yrs Sex: Male : 1955 Arrival Date: 05/31/2021 Time: 10:31 Bed 13 Private MD: Diagnosis: Acute embolism and thrombosis of unspecified deep veins of right lower extremity Presentation: 05/31 10:43 Chief complaint: Patient states: i am having RIGHT leg swelling for a while but it has tw2 gotten worse. it feels like it is going to bust. i came in today because of the increased pain i am having. Coronavirus screen: At this time, the client does not indicate any symptoms associated with coronavirus-19. Ebola Screen: Patient denies travel to an Ebola-affected area in the 21 days before illness onset. Initial Sepsis Screen: Does the patient meet any 2 criteria? HR > 90 bpm. No. Patient's initial sepsis screen is negative. Does the patient have a suspected source of infection? No. Patient's initial sepsis screen is negative. Risk Assessment: Do you want to hurt yourself or someone else? Patient reports no desire to harm self or others. Onset of symptoms was May 31, 2021. 10:43 Method Of Arrival: Wheelchair tw2 10:43 Acuity: MARLEEN 3 tw2 Triage Assessment: 10:45 General: Appears in no apparent distress. uncomfortable, Behavior is calm, cooperative, tw2 appropriate for age. Pain: Complains of pain in right leg. Neuro: Level of Consciousness is awake, alert, obeys commands, Oriented to person, place, time, situation. Cardiovascular: Patient's skin is warm and dry. Cardiovascular: Edema is 3+ to left midcalf, left ankle, left foot, right upper thigh, right lower thigh, right knee, right midcalf, right ankle and right foot. Respiratory: Airway is patent Respiratory effort is even, unlabored, Respiratory pattern is regular, symmetrical. GI: No signs and/or symptoms were reported involving the gastrointestinal system. : No signs and/or symptoms were reported regarding the genitourinary system. Musculoskeletal: Range of motion: intact in all extremities. 10:53 Derm: Skin is jaundiced. tw2 Historical: - Allergies: 10:45 No Known Allergies; tw2 - Home Meds: 10:45 pantoprazole 40 mg oral TbEC 1 tab once daily [Active]; hydrocodone-acetaminophen tw2 10-325 mg oral tab 1 tab every 12 hours [Active]; furosemide 40 mg oral tab 1 tab once daily [Active]; - PMHx: 10:45 Hypercholesterolemia; Hypertensive disorder; liver cancer; Stage IV bile duct CA; tw2 - PSHx: 10:45 Port a Cath, right upper chest for chemo; tw2 - Immunization history:: Client reports receiving the 2nd dose of the Covid vaccine, and booster received. Flu vaccine is up to date. - Social history:: Smoking status: Patient denies any tobacco usage or history of. Screenin:51 Abuse screen: Denies threats or abuse. Nutritional screening: No deficits noted. tw2 Tuberculosis screening: No symptoms or risk factors identified. Fall Risk Secondary diagnosis (15 points) impaired mobility. Assessment: 10:51 Reassessment: see triage assessment. tw2 12:13 Reassessment: Patient appears in no apparent distress at this time. Patient and/or tw2 family updated on plan of care and expected duration. Pain level reassessed. Patient is alert, oriented x 3, equal unlabored respirations, skin warm/dry/pink. 12:23 Reassessment: lab at bedside at this time for recollect. tw2 12:50 Reassessment: notified charge nurse GIGI Crawford of need for blood after lab was tw2 unsuccessful 3 times. 13:10 Reassessment: GIGI Crawford unsuccessful with attempt to recollect for CBC at this time. tw2 provider KEDAR Edward notified. per provider can hold off on further attempts at this time. 13:24 Reassessment: Patient appears in no apparent distress at this time. Patient and/or tw2 family updated on plan of care and expected duration. Pain level reassessed. Patient is alert, oriented x 3, equal unlabored respirations, skin warm/dry/pink. 13:45 Reassessment: provider at bedside going over results at this time. tw2 14:32 Reassessment: Patient appears in no apparent distress at this time. Patient is alert, ld1 oriented x 3, equal unlabored respirations, skin warm/dry/pink. Vital Signs: 10:43 BP 107 / 80; Pulse 96; Resp 12; Temp 98(TE); Pulse Ox 100% on R/A; Weight 74.39 kg (R); tw2 Height 5 ft. 4 in. (162.56 cm) (R); Pain 9/10; 12:13 BP 108 / 83; Pulse 103; Resp 19; Pulse Ox 100% on R/A; tw2 14:32 BP 108 / 71; Pulse 96; Resp 21; Pulse Ox 98% on R/A; ld1 15:41 BP 100 / 66; Pulse 95; Resp 14; Pulse Ox 97% on R/A; ld1 10:43 Body Mass Index 28.15 (74.39 kg, 162.56 cm) tw2 ED Course: 10:31 Patient arrived in ED. mr 10:34 Bed in low position. Call light in reach. Side rails up X 1. Adult w/ patient. Cardiac tw2 monitor on. Pulse ox on. NIBP on. Warm blanket given. pt needing stand by assistance and step stool when getting into exam bed. pt was in 2 sweatpants that were removed as pt was getting into exam bed. pt was given 2 warm blankets for comfort at this time. 10:43 Erica Gould, GIGI is Primary Nurse. tw2 10:44 Musa Del Real PA is PHCP. jr8 10:44 Jigar Larry MD is Attending Physician. jr8 10:45 Triage completed. tw2 10:51 Arm band placed on. tw2 11:15 EKG done, by ED staff, reviewed by Jigar Larry MD. mh5 11:18 Missed attempt(s): 20 gauge in right antecubital area. Bleeding controlled, band aid tw2 applied, catheter tip intact. Missed attempt(s): 22 gauge in left forearm. notified GIGI Quarles of need for iv at this time.. Bleeding controlled, band aid applied, catheter tip intact. 11:18 Ptt, Activated Sent. tw2 11:18 Protime (+inr) Sent. tw2 11:26 Inserted saline lock: 20 gauge in right antecubital area, using aseptic technique. tw2 ,using aseptic technique. by RobinaRN Blood collected. 11:31 Basic Metabolic Panel Sent. tw2 11:31 CBC with Diff Sent. tw2 11:53 US Extremity Venous W Compression Keith In Process Unspecified. EDMS 12:11 Lab of need for recollect of lavender and blue top at this time. IV line flushes only. tw2 does not return blood. 13:50 Andrew Trivedi MD is Hospitalizing Provider. jr8 15:27 COVID-19 SARS RT PCR (Document "Date of Onset" if Symptomatic) Sent. ld1 16:25 No provider procedures requiring assistance completed. Patient admitted, IV remains in ld1 place. intact, bleeding controlled, No redness/swelling at site. Administered Medications: 13:04 Drug: Lovenox (enoxaparin) 1 mg/kg Route: Sub-Q; Site: left lower abdomen; tw2 13:23 Follow up: Response: No adverse reaction tw2 Outcome: 13:50 Decision to Hospitalize by Provider. jr8 16:27 Admitted to Med/surg accompanied by tech, via wheelchair, room 217, with chart, Report ld1 called to GIGI Cooper 16:27 Condition: stable 16:27 Instructed on the need for admit. 16:37 Patient left the ED. ld1 Signatures: Dispatcher [employer] [facility] ArzolaChely collins Musa Del Real PA PA jr8 Erica Gould RN RN tw2 Alexa Oro [facility] Heather Ware RN RN ld1 Corrections: (The following items were deleted from the chart) 10:53 10:45 Musculoskeletal: Range of motion: intact in all extremities, tw2 tw2 11:31 11:31 Inserted saline lock: 20 gauge in right antecubital area, using aseptic tw2 technique. ,using aseptic technique. by GIGI Quarles Blood collected. tw2 13:24 12:50 Reassessment: notified charge nurse GIGI Crawford of need for blood after lab was tw2 unsuccessful 3 times. tw2
--- NOTE | 2021-05-31 15:26 | P.HP ---
Certification for Inpatient Patient admitted to: Inpatient With expected LOS: >2 Midnights Practitioner: I am a practitioner with admitting privileges, knowledge of patient current condition, hospital course, and medical plan of care. Services: Services provided to patient in accordance with Admission requirements found in Title 42 Section 412.3 of the Code of Federal Regulations Patient History Date of Service: 05/31/21 Reason for admission: Acute DVT History of Present Illness: 66-year-old male, PMH: Stage IV liver adenocarcinoma, chronic edema, HLD, HTN, undergoing chemotherapy. Presents with 4 days of worsening right lower extremity swelling and tight pain. He states he has been having ongoing swelling in both legs, worse on the right for over a month, but significantly worsened over the last 4 days. He has gone to the point where he cannot even lift the leg due to heaviness/and feeling of weakness. Family report in his right lower leg has been cooler to touch compared to his left leg at times over the last 24 hours. He states he fell 2 weeks ago, tripped out of bed. He presented to the ER and was subsequently discharged home. He states he has not been moving much since then due to pain. He reports acute on chronic tailbone pain and "nerve pain" that goes down his leg which has also been chronic. He otherwise denies any recent changes In the ED, he was followed to have a right femoral DVT and significant right lower extremity edema. ED provider requests admission for further management. Allergies No Known Allergies Allergy (Verified 05/07/21 01:26) Home Medications: Hydrocodone Bit/Acetaminophen [Spangle 10-325 Tablet] 1 each PO Q6HP PRN 05/07/21 dexAMETHasone [Dexamethasone] 4 mg PO DAILY 05/07/21 Pantoprazole [Protonix Tab] 40 mg PO Q12H #60 tab 05/09/21 Sucralfate [Carafate*] 10 ml PO ACHS #420 ml 05/09/21 Furosemide 40 mg PO DAILY 05/25/21 - Past Medical/Surgical History Diabetic: No -: stage IV liver adenocarcinoma -: chronic lower extremity edema -: HLD -: HTN -: shoulder surgery - Family History Brother -: Liver disease Notes: two brothers, both d/t cirrhosis Sister -: Cancer Notes: ovarian, - Social History Smoking Status: Current some day smoker Alcohol use: No CD- Drugs: No Caffeine use: No Place of Residence: Home Review of Systems 10-point ROS is otherwise unremarkable Physical Examination - Physical Exam General: Alert, In no apparent distress, Oriented x3 HEENT: Sclerae nonicteric Neck: Supple, No LAD Respiratory: Clear to auscultation bilaterally, Normal air movement Cardiovascular: Regular rate/rhythm, Edema (3+ pitting edema up to the right thigh, right lower extremity slightly cool to touch compared to left) Gastrointestinal: Soft and benign, Non-distended, No tenderness Musculoskeletal: No contractures Integumentary: No rashes, No erythema Neurological: Normal speech, Normal affect - Studies Laboratory Data (last 24 hrs) 05/31/21 11:24: Sodium 140, Potassium 3.5, BUN 33 H, Creatinine 0.74, Glucose 94 05/31/21 11:15: PT 17.4 H, INR 1.51, APTT 20.5 L Assessment and Plan - Advance Directives Does patient have a Living Will: Yes Does patient have a Durable POA for Healthcare: No Physician Review Additional Text: Problem list Acute RLE DVT of femoral vein Stage IV liver adenocarcinoma, undergoing chemotherapy chronic RLE edema HTN HLD Chronic pain ?Recent gastritis/esophagitis Significant lower extremity edema, patient unable to ambulate due to heaviness and discomfort does not appear to have acute limb ischemia Continue Lovenox, 1mg/kg BID Elevate right lower extremity Continue home Lasix dosage Blood pressure low normal Okay to ambulate if possible, physical therapy consulted. Patient reports right lower extremity weakness due to the heaviness May need increased dose of Lasix, blood pressure can tolerate Plan to transition to DOAC next 24 to 48 hours Patient was hospitalized 1 month ago with epigastric pain, and improved with Carafate and Protonix. Thought to be secondary to gastritis/possible esophagitis. He has been doing well in that regard. Denies any history of GI bleed We will monitor on anticoagulation No GI available, patient was to follow-up with GI within days of his last discharge, however he did not. VTE: lovenox 1mg/kg Code: full Dispo: anticipate dc home in ~2-3 days Time Spent Managing Pts Care (In Minutes): 60
[2021-05-31] MEDS ORDERED: ONDANSETRON 4 MG/2 ML VIAL IV PRN (16:15)
[2021-05-31 16:44] VITALS: BMI 28.1
[2021-05-31] MEDS ORDERED: POTASSIUM CL SA 10 MEQ TAB PO ONE (17:00)
[2021-05-31] MEDS: SUCRALFATE 1GM/10ML UCUP PO SCH ×2 (17:13→20:15)
[2021-05-31] MEDS: PANTOPRAZOLE 40MG TABLET PO SCH (17:13)
[2021-05-31] MEDS: HYDROCODONE/APAP 10/325 TAB PO PRN (17:29)
[2021-05-31 18:06] LABS: Absolute Lymphocytes (CBC) 1.2 K/uL (0.7-4.9); Basophils % 0.1 % (0-1.3); Hematocrit 28.7 % (39.6-49.0); Lymphocytes % 28.8 % (15.3-44.8); MPV 9.4 fL (7.6-11.3); RBC Red Blood Cell Count 3.41 M/uL (4.33-5.43)
[2021-05-31] MEDS ORDERED: ENOXAPARIN 80 MG/0.8 ML SQ SCH (21:00)
[2021-05-31 21:49] LABS: Anisocytosis 1+; Blood Morphology Comment NOTED (NOT SEEN); Platelet Estimate DECR; Polychromasia SLIGHT; White Blood Cell Scan OK (OK)
[2021-06-01] MEDS ORDERED: NA CHLORIDE 0.9% 250 ML IV SCH (03:00)
[2021-06-01 03:20] LABS: ALT/SGPT 59 U/L (12-78); AST/SGOT 44 U/L (15-37); Albumin 1.8 g/dL (3.4-5.0); Alkaline Phosphatase 382 U/L (45-117); BUN Blood Urea Nitrogen 33 mg/dL (7-18); Bicarbonate 26 mmol/L (21-32); Bilirubin Total 0.9 mg/dL (0.2-1.0); Glucose Level 104 mg/dL (74-106); Magnesium 1.8 mg/dL (1.8-2.4); Potassium 3.8 mmol/L (3.5-5.1); Protein, Total 5.2 g/dL (6.4-8.2); Sodium Level 142 mmol/L (136-145)
[2021-06-01 03:28] LABS: Basophils % 0.2 % (0-1.3); Hematocrit 24.8 % (39.6-49.0); Lymphocytes % 27.1 % (15.3-44.8); MPV 9.5 fL (7.6-11.3); RBC Red Blood Cell Count 2.97 M/uL (4.33-5.43)
[2021-06-01] MEDS: PANTOPRAZOLE 40MG TABLET PO SCH ×2 (04:15→16:49)
[2021-06-01] MEDS ORDERED: NA CHLORIDE 0.9% 250 ML ONE (05:19)
--- NOTE | 2021-06-01 05:53 | P.PN ---
Date of Service: 06/01/21 Subjective: Patient noted moderate improvement in his right lower extremity swelling and strength Pain/discomfort has improved as well CBC yesterday returned with significant thrombocytopenia. Evening Lovenox held Just completed a pack of platelets, in preparation for IVC filter placement this morning ROS: 10 point ROS as noted above, otherwise negative Physical Exam General: Alert, In no apparent distress, Oriented x3 HEENT: Sclerae nonicteric Respiratory: Clear to auscultation bilaterally, Normal air movement Cardiovascular: Regular rate/rhythm, Edema (3+ pitting edema up to the right thigh, right lower extremity slightly cool to touch compared to left), 2+ piting edema on LLE Gastrointestinal: Soft and benign, Non-distended, mild tenderness in epigastrium/periumbilical Neurological: Normal speech, Normal affect Problem list Acute RLE DVT of femoral vein Stage IV liver adenocarcinoma, undergoing chemotherapy chronic RLE edema Anemia / Thrombocytopenia, secondary to chemotherapy HTN HLD Chronic pain ?Recent gastritis/esophagitis Significant lower extremity edema, patient unable to ambulate due to heaviness and discomfort Right lower extremity symptoms have moderately improved overnight received lovenox in ED x 1 Elevate right lower extremity Continue home Lasix Blood pressure low-normal Okay to ambulate if possible, physical therapy consulted. Patient reports right lower extremity weakness due to the heaviness Patient was hospitalized 1 month ago with epigastric pain, and improved with Carafate and Protonix. Thought to be secondary to gastritis/possible esophagitis. He has been doing well in that regard. Denies any history of GI bleed, will monitor closely Continue Carafate, continue Protonix thrombocytopenic, discussed with hematology, recommended IVC filter - general surgery consulted - tentative plan for today after receives platelets Discussed anticoagulation with hematology, recommends initiating Eliquis once patient has shown stability of platelets > 30,000 VTE: on hold for OR / thrombocytopenia Code: full Dispo: anticipate dc home in ~2 days Time Spent Managing Pts Care (In Minutes): 35
[2021-06-01] MEDS: SUCRALFATE 1GM/10ML UCUP PO SCH ×4 (07:30→20:35)
[2021-06-01] MEDS: FUROSEMIDE 40 MG TABLET PO SCH (08:20)
[2021-06-01 08:46] LABS: Hematocrit 23.9 % (39.6-49.0); MPV 8.3 fL (7.6-11.3)
[2021-06-01] MEDS ORDERED: KCL 20 MEQ/100 mL IVPB 20 MEQ/100 ML BAG IV SCH (09:00)
[2021-06-01] MEDS ORDERED: CEFAZOLIN SODIUM 1 GM/VIAL ONE (09:21)
[2021-06-01] MEDS ORDERED: Ringers Lactate 1,000 ML IV ONE (09:21)
[2021-06-01] MEDS ORDERED: MIDAZOLAM HCL 2 MG/2 ML INJ ONE (09:50)
[2021-06-01] MEDS ORDERED: propofoL 200 MG/20 ML VIAL IV ONE (09:50)
[2021-06-01] MEDS ORDERED: ONDANSETRON 4 MG/2 ML VIAL ONE (09:51)
[2021-06-01] MEDS ORDERED: LIDOCAINE 2% MPF 5 ML VIAL ONE (09:51)
[2021-06-01] MEDS ORDERED: FENTANYL CITR 100 MCG/2 ML ONE (09:51)
--- NOTE | 2021-06-01 10:18 | PREOPCON ---
Date of Consultation: 05/31/2021 Reason For Consultation: The patient needs a [place] filter. History Of Present Illness: The patient is a 66-year-old gentleman with stage IV liver adenocarcinom a from the colon who presented to the emergency room with 4 days of worsening right lower extremity s welling and pain and cannot lift the leg due to heaviness and feeling of weakness. He states that he fell 2 weeks ago. He went to the ER but was discharged at that time. He has had no acute injuries. No sore throat, runny nose, cough, headaches, or dizziness. No chest pain. No fever or chills. Review of Systems: Otherwise unremarkable. Please note, I placed a Port-A-Cath via the right IJ approach last week befo re chemotherapy and the patient also has thrombocytopenia and his platelets were 16,000 yesterday. Past Medical History: Significant for stage IV liver adenocarcinoma from colon cancer, chronic lower extremity edema, hypertension, hyperlipidemia. Past Surgical History: Recent Port-A-Cath placement, shoulder surgery. Family History: Significant for liver disease in 2 brothers with cirrhosis and sister with ovarian c ancer. Physical Examination: Vital Signs: Stable. He is afebrile. General: He is awake, alert, and oriented x3. Head And Neck: Cranial nerves 2 through 12 are grossly within normal limits. No neck masses. No JV D. Throat clear. Neck is supple. Chest: Clear. Heart: S1 and S2. Abdomen: Soft. Extremities: Right leg is more swollen than left. Neurovascularly, they are intact. Laboratory Data: Reviewed. His platelets were 16,000 yesterday. He was given a unit of platelets a nd that come up to 44,000 this morning. H and H are 8.1 and 23.9. INR is 1.51. Chemistry reviewed. The venous Doppler and CT of the abdomen and pelvis reviewed with Dr. Martinez. Assessment: Right femoral deep venous thrombosis, acute stage IV liver cancer and assumption it is f rom the colon cancer, thrombocytopenia. Plan: We will go ahead and proceed with left femoral approach for a [place] filter placement. Th e patient understands the risks, benefits, and alternatives and agrees to procedure. /MODL Voice ID: [id number] Report ID: [id number]
--- NOTE | 2021-06-01 11:13 | P.OP ---
Steeping Press Operator: Jaylen ROSALES Preoperative diagnosis: Right femoral DVT, Thrombocytopenia Postoperative diagnosis: same Primary procedure: Left femoral Al[place]son filter Secondary procedure: Fluoroscopy Anesthesia: MAC Estimated blood loss: min Specimen: none Findings: as above Complications: None Transferred to: Recovery Room Condition: Good
--- NOTE | 2021-06-01 11:55 | RAD REPORT ---
EXAM DESCRIPTION: RAD - Fluoroscopy <1 Hour - 06/01/2021 11:37 am CLINICAL HISTORY: IVC FILTER PLACEMENT COMPARISON: Fluoroscopy <1 Hour dated 05/25/2021 FINDINGS/IMPRESSION: Fourteen intraoperative fluoroscopic images demonstrating placement of an IVC f ilter. This is at the L2-3 level. Fluoro time: 0.7 minutes Dose: 30.3 mGy
--- NOTE | 2021-06-01 12:01 | OP ---
Date of Procedure: 06/01/2021 Surgeon: Marcin Cochran MD Chief Commercial Officer: BOBBY Langford. Preoperative Diagnosis: Acute right femoral deep venous thrombosis, thrombocytopenia. Postoperative Diagnosis: Acute right femoral deep venous thrombosis, thrombocytopenia. Procedure: Placement of left femoral Al[place] filter and interpretation of intraoperative fluorosc opy. Estimated Blood Loss: Minimal. Specimen: None. Findings: Normal anatomy. Anesthesia: MAC. Complications: None. Disposition: The patient tolerated the procedure in stable condition and taken to Recovery in good g eneral condition. Description Of Procedure: The patient was brought to the OR and placed in supine position, mechanism began. The patient was prepped and draped in the usual sterile fashion. Lidocaine 1% infiltrated l ocally and then the left femoral vein identified and an 18-gauge needle was used to access, guidewire passed, position confirmed with fluoroscopy. Sheath introducer and dilator were placed under fluoro scopy and then Allyson filter after being adequately flushed was placed and deployed between L2 an d L3 under fluoroscopy with complete opening and no migration noted. Then, the introducer removed and pressure applied to the wound. Sterile dressing applied. The patient awakened and taken to [facility] in good general condition. /MODL Voice ID: [id number] Report ID: [id number]
[2021-06-01] MEDS ORDERED: POTASSIUM CL SA 10 MEQ TAB PO ONE (13:00)
[2021-06-01] MEDS ORDERED: MAGNESIUM SULFATE 1 gm IVPB 1 GM/100 ML BAG IV ONE (13:00)
[2021-06-01] MEDS: HYDROCODONE/APAP 10/325 TAB PO PRN ×2 (13:05→20:42)
[2021-06-01] MEDS ORDERED: HEPARIN 5000 UNIT/ML 1 ML VIAL ONE (15:05)
[2021-06-01] MEDS ORDERED: LIDOCAINE 1% MPF 30 ML VIAL ONE (15:05)
[2021-06-01] MEDS ORDERED: NA CHLORIDE 0.9% 50 ML ONE (15:05)
[2021-06-02] MEDS: PANTOPRAZOLE 40MG TABLET PO SCH ×2 (04:47→15:22)
[2021-06-02] MEDS: HYDROCODONE/APAP 10/325 TAB PO PRN ×2 (04:53→15:22)
--- NOTE | 2021-06-02 06:03 | P.PN ---
Date of Service: 06/02/21 Subjective: feeling better, swelling improved, walked yesterday with PT no new complaints Plt improved ROS: 10 point ROS as noted above, otherwise negative Physical Exam General: Alert, In no apparent distress, Oriented x3 HEENT: Sclerae nonicteric Respiratory: Clear to auscultation bilaterally, Normal air movement Cardiovascular: Regular rate/rhythm, 2+ pitting edema up to the right thigh, trace edema on LLE Gastrointestinal: Soft and benign, Non-distended, mild tenderness in epigastrium/periumbilical Neurological: Normal speech, Normal affect Problem list Acute RLE DVT of femoral vein Stage IV liver adenocarcinoma, undergoing chemotherapy chronic RLE edema Anemia / Thrombocytopenia, secondary to chemotherapy HTN HLD Chronic pain ?Recent gastritis/esophagitis Significant lower extremity edema, patient unable to ambulate due to heaviness and discomfort Right lower extremity symptoms have moderately improved. LLE swelling improved as well received lovenox in ED x 1 Elevate right lower extremity Continue home Lasix Blood pressure low-normal Okay to ambulate if possible, physical therapy consulted. Patient reports right lower extremity weakness due to the heaviness Patient was hospitalized 1 month ago with epigastric pain, and improved with Carafate and Protonix. Thought to be secondary to gastritis/possible esophagitis. He has been doing well in that regard. Denies any history of GI bleed, will monitor closely Continue Carafate, continue Protonix thrombocytopenic, discussed with hematology, recommended IVC filter - general surgery consulted - s/p IVC filter placement on 06/01 Discussed anticoagulation with hematology, recommends initiating Eliquis once patient has shown stability of platelets > 30,000 Start Eliquis today 10 mg twice daily, repeat labs in a.m VTE: Eliquis Code: full Dispo: Anticipate DC home with home health on Eliquis if hemoglobin and platelets are stable tomorrow He is to follow-up with hematology His wire transfer clerk/oncologist, Dr. Sanchez stated chemotherapy will be on hold for approximately 2 weeks while they monitor his cell lines and he stabilizes from his DVT Time Spent Managing Pts Care (In Minutes): 35
[2021-06-02 06:21] LABS: Absolute Lymphocytes (CBC) 0.8 K/uL (0.7-4.9); Basophils % 0.4 % (0-1.3); Lymphocytes % 22.1 % (15.3-44.8); MPV 7.8 fL (7.6-11.3); RBC Red Blood Cell Count 2.81 M/uL (4.33-5.43)
[2021-06-02 06:35] LABS: BUN Blood Urea Nitrogen 29 mg/dL (7-18); Bicarbonate 25 mmol/L (21-32); Glucose Level 111 mg/dL (74-106); Magnesium 2.1 mg/dL (1.8-2.4); Potassium 3.5 mmol/L (3.5-5.1); Sodium Level 141 mmol/L (136-145)
[2021-06-02 06:40] LABS: Blood Morphology Comment NOT SEEN (NOT SEEN); Platelet Estimate DECR; White Blood Cell Scan OK (OK)
[2021-06-02 07:06] LABS: RBC Red Blood Cell Count 2.64 M/uL (4.33-5.43)
[2021-06-02] MEDS ORDERED: POTASSIUM CL SA 10 MEQ TAB PO ONE ×2 (08:38→08:58)
[2021-06-02] MEDS ORDERED: POTASSIUM 25 MEQ EFFERV TAB PO ONE (09:00)
[2021-06-02] MEDS: APIXABAN 5 MG TABLET PO SCH ×2 (09:15→20:39)
[2021-06-02] MEDS: FUROSEMIDE 40 MG TABLET PO SCH (09:15)
[2021-06-02] MEDS: SUCRALFATE 1GM/10ML UCUP PO SCH ×4 (09:17→20:39)
[2021-06-03] MEDS: HYDROCODONE/APAP 10/325 TAB PO PRN ×3 (04:25→21:13)
[2021-06-03] MEDS: PANTOPRAZOLE 40MG TABLET PO SCH ×2 (04:25→15:40)
[2021-06-03 05:10] LABS: Absolute Lymphocytes (CBC) 0.9 K/uL (0.7-4.9); Basophils % 0.5 % (0-1.3); Hematocrit 25.1 % (39.6-49.0); Lymphocytes % 26.3 % (15.3-44.8); MPV 8.1 fL (7.6-11.3); RBC Red Blood Cell Count 2.89 M/uL (4.33-5.43)
[2021-06-03 05:24] LABS: BUN Blood Urea Nitrogen 25 mg/dL (7-18); Bicarbonate 24 mmol/L (21-32); Glucose Level 93 mg/dL (74-106); Potassium 3.7 mmol/L (3.5-5.1); Sodium Level 140 mmol/L (136-145)
[2021-06-03] MEDS ORDERED: POTASSIUM 25 MEQ EFFERV TAB PO ONE ×2 (05:38→09:00)
[2021-06-03] MEDS: APIXABAN 5 MG TABLET PO SCH ×2 (09:50→20:27)
[2021-06-03] MEDS: FUROSEMIDE 40 MG TABLET PO SCH (09:51)
[2021-06-03] MEDS: SUCRALFATE 1GM/10ML UCUP PO SCH ×4 (09:52→20:27)
--- NOTE | 2021-06-03 10:28 | P.DS ---
Admission Date: 05/31/21 Discharge Date: 06/03/21 Disposition: ROUTINE DISCHARGE Discharge Condition: GOOD Reason for Admission: Acute DVT Brief History of Present Illness: Patient is 66 years of age with adenocarcinoma admitted with right leg DVT Hospital Course: Patient has stage IV adenocarcinoma on chemotherapy admitted with DVT involving his right leg is doing better swelling is decreasing although still significantly larger than his left leg denies any discomfort we will plan to discharge him on Eliquis 10 mg twice a day for 7 days and 5 mg twice a day more likely for an indefinite. Due to his underlying malignancy patient is on chemotherapy at the time of discharge he is alert oriented responsive cooperative chest clear vital signs stable right leg swollen platelet count is 56,000 labs reviewed Will Alondra will verify with the pharmacy regarding cost of the Eliquis in addition to approval by the insurance company prior to discharge Vital Signs/Physical Exam: Temp Pulse Resp BP Pulse Ox 98.1 F 89 18 114/70 99 06/03/21 08:00 06/03/21 09:51 06/03/21 08:00 06/03/21 09:51 06/03/21 08:00 Laboratory Data at Discharge: WBC 3.30 K/uL (4.3-10.9) L 06/03/21 04:47 Hgb 8.0 g/dL (13.6-17.9) L 06/03/21 04:47 Hct 25.1 % (39.6-49.0) L 06/03/21 04:47 Plt Count 56 K/uL (152-406) L 06/03/21 04:47 PT 17.4 SECONDS (9.5-12.5) H 05/31/21 11:15 INR 1.51 05/31/21 11:15 APTT 20.5 SECONDS (24.3-36.9) L 05/31/21 11:15 Sodium 140 mmol/L (136-145) 06/03/21 04:47 Potassium 3.7 mmol/L (3.5-5.1) 06/03/21 04:47 BUN 25 mg/dL (7-18) H 06/03/21 04:47 Creatinine 0.61 mg/dL (0.55-1.3) 06/03/21 04:47 Glucose 93 mg/dL (74-106) 06/03/21 04:47 Magnesium 2.1 mg/dL (1.8-2.4) 06/02/21 06:12 Total Bilirubin 0.9 mg/dL (0.2-1.0) 06/01/21 02:43 AST 44 U/L (15-37) H 06/01/21 02:43 ALT 59 U/L (12-78) 06/01/21 02:43 Alkaline Phosphatase 382 U/L (45-117) H 06/01/21 02:43 Home Medications: Hydrocodone Bit/Acetaminophen [[place] 10-325 Tablet] 1 each PO Q6HP PRN 05/07/21 dexAMETHasone [Dexamethasone] 4 mg PO SEECOM 05/07/21 Pantoprazole [Protonix Tab] 40 mg PO Q12H #60 tab 05/09/21 Sucralfate [Carafate*] 10 ml PO ACHS #420 ml 05/09/21 Furosemide 40 mg PO DAILY 05/25/21 Apixaban [Eliquis] 10 mg PO BID #14 tablet 06/03/21 New Medications: Apixaban [Eliquis] 10 mg PO BID #14 tablet Physician Discharge Instructions: Patient to resume daily activities as tolerated elevate leg high compression stocking in the right leg prescription has been faxed to the pharmacy Diet: Regular Activity: Ad delfino Followup: NONE,NONE [Primary Care Provider] -
[2021-06-04] MEDS: HYDROCODONE/APAP 10/325 TAB PO PRN (02:52)
[2021-06-04] MEDS: PANTOPRAZOLE 40MG TABLET PO SCH (02:52)
[2021-06-04] MEDS: SUCRALFATE 1GM/10ML UCUP PO SCH (08:09)
[2021-06-04] MEDS: FUROSEMIDE 40 MG TABLET PO SCH (08:09)
[2021-06-04 08:10] VITALS: BP 116/71
[2021-06-04] MEDS: APIXABAN 5 MG TABLET PO SCH (08:10)
[2021-06-04 09:28] VITALS: O2SAT 100
[2021-06-04 09:58] VITALS: TEMP 97
--- NOTE | 2021-06-04 12:31 | P.PN ---
Subjective Date of Service: 06/04/21 Chief Complaint: Acute DVT Subjective: Improving (Right leg swelling has decreased unable to discharge yesterday as the pharmacy was closed due to hol) Review of Systems Unremarkable Physical Examination - Vital Signs Temperature: 97.0 F Blood Pressure: 116/71 Pulse: 118 Respirations: 20 Pulse Ox (%): 100 - Physical Exam General: Alert, In no apparent distress, Oriented x3 Cardiovascular: Edema (Edema on the right leg is decreased) Assessment & Plan - Problems (Diagnosis) (1) DVT (deep venous thrombosis) Status: Acute Plan: Patient was admitted with DVT of the right leg was unable to discharge yesterday the pharmacy was closed for she is very stable to be discharged today Marialuisais is covered by the pharmacy and has been verified needs to follow-up with Dr. Sanchez Qualifiers: DVT location: lower extremity Chronicity: acute Laterality: right Discharge Plan: Home
--- NOTE | 2021-06-04 12:32 | P.DS ---
Admission Date: 05/31/21 Discharge Date: 06/04/21 Disposition: ROUTINE DISCHARGE Discharge Condition: GOOD Reason for Admission: Acute DVT - Problems (1) DVT (deep venous thrombosis) Status: Acute Qualifiers: DVT location: lower extremity Chronicity: acute Laterality: right Brief History of Present Illness: Patient is 66 years of age with adenocarcinoma admitted with right leg DVT Hospital Course: Patient has stage IV adenocarcinoma on chemotherapy admitted with DVT involving his right leg is doing better swelling is decreasing although still significantly larger than his left leg denies any discomfort we will plan to discharge him on Eliquis 10 mg twice a day for 7 days and 5 mg twice a day more likely for an indefinite. Due to his underlying malignancy patient is on chemotherapy at the time of discharge he is alert oriented responsive cooperative chest clear vital signs stable right leg swollen platelet count is 56,000 labs reviewed Will Alondra will verify with the pharmacy regarding cost of the Eliquis in addition to approval by the insurance company prior to discharge I was unable to discharge the patient on 1225 due to holiday and was discharged today patient has been very stable no change in his condition and has been improving Vital Signs/Physical Exam: Temp Pulse Resp BP Pulse Ox 97.0 F 118 H 20 116/71 100 06/04/21 12:31 06/04/21 12:31 06/04/21 12:31 06/04/21 12:31 06/04/21 12:31 Laboratory Data at Discharge: WBC 3.30 K/uL (4.3-10.9) L 06/03/21 04:47 Hgb 8.0 g/dL (13.6-17.9) L 06/03/21 04:47 Hct 25.1 % (39.6-49.0) L 06/03/21 04:47 Plt Count 56 K/uL (152-406) L 06/03/21 04:47 PT 17.4 SECONDS (9.5-12.5) H 05/31/21 11:15 INR 1.51 05/31/21 11:15 APTT 20.5 SECONDS (24.3-36.9) L 05/31/21 11:15 Sodium 140 mmol/L (136-145) 06/03/21 04:47 Potassium 4.3 mmol/L (3.5-5.1) 06/04/21 05:14 BUN 25 mg/dL (7-18) H 06/03/21 04:47 Creatinine 0.61 mg/dL (0.55-1.3) 06/03/21 04:47 Glucose 93 mg/dL (74-106) 06/03/21 04:47 Magnesium 1.9 mg/dL (1.8-2.4) 06/04/21 05:14 Total Bilirubin 0.9 mg/dL (0.2-1.0) 06/01/21 02:43 AST 44 U/L (15-37) H 06/01/21 02:43 ALT 59 U/L (12-78) 06/01/21 02:43 Alkaline Phosphatase 382 U/L (45-117) H 06/01/21 02:43 Home Medications: Hydrocodone Bit/Acetaminophen [[place] 10-325 Tablet] 1 each PO Q6HP PRN 05/07/21 dexAMETHasone [Dexamethasone] 4 mg PO SEECOM 05/07/21 Pantoprazole [Protonix Tab*] 40 mg PO Q12H #60 tab 05/09/21 Furosemide 40 mg PO DAILY 05/25/21 Apixaban [Eliquis] 10 mg PO BID #14 tablet 06/03/21 Sucralfate [Carafate*] 10 ml PO ACHS #420 ml 06/04/21 New Medications: Sucralfate [Carafate*] 10 ml PO ACHS #420 ml Apixaban [Eliquis] 10 mg PO BID #14 tablet Physician Discharge Instructions: Patient to resume daily activities as tolerated elevate leg high compression stocking in the right leg prescription has been faxed to the pharmacy/verified for the pharmacy that his Eliquis is covered Patient is to take Eliquis 10mg twice a day for 7 days then 5 mg twice a day for indefinite. Dr. Sanchez to monitor continue prescribing his anticoagulation Diet: Regular Activity: Ad delfino Followup: NONE,NONE [Primary Care Provider] - Marcin Cochran MD [ACTIVE - CAN ADMIT] -
== END 2021-06-04 12:26 | disposition home or self-care (01) | DRG 253 ==
LOC: ER 10:27 → ERHOLD 15:30 → 2ND 16:18
PROVIDERS: ADMIT Hospitalist; ATTEND Internal Medicine Sleep Medicine
PROC: 30233R1 Transfusion of Nonautologous Platelets into Peripheral Vein, Percutaneous Approach (ICD-10-PCS; 2021-06-01)
PROC: 02HV3DZ Insertion of Intraluminal Device into Superior Vena Cava, Percutaneous Approach (ICD-10-PCS; principal; 2021-06-01 10:15)
DX: I82.411 Acute embolism and thrombosis of right femoral vein (principal); C22.7 Other specified carcinomas of liver; I10 Essential (primary) hypertension; F17.200 Nicotine dependence, unspecified, uncomplicated; E78.5 Hyperlipidemia, unspecified; D69.59 Other secondary thrombocytopenia; G89.29 Other chronic pain; T45.1X5A Adverse effect of antineoplastic and immunosuppressive drugs, initial encounter; Z79.899 Other long term (current) drug therapy; Z85.05 Personal history of malignant neoplasm of liver; Z79.01 Long term (current) use of anticoagulants; Z20.822 Contact with and (suspected) exposure to COVID-19
CPT/HCPCS: 36415; 76000; 80048; 80053; 83540; 83735; 84132; 84466; 85025; 85027; 85044; 85610; 85730; 86850; 86900; 86901; 93005; 93970; 94760; 96372; 97116; 97161; 97530; 99285; J0690; J1644; J2250; J2405; J2704; J3010; J3475; J7050; J7120; P9073; U0003